=== PATIENT | female | born 1990 | race Two or more races ===

== ENCOUNTER 2020-10-02 05:50 | Emergency (ER) | payer MEDICAID, SELFPAY ==
[2020-10-02 06:40] LABS: MANUAL DIFF FLAG NO
[2020-10-02 06:48] LABS: Basophils Percent Auto 0.3 % (0-2); Eosinophils Absolute Auto 0.2 X10*3/uL (0.0-0.4); Eosinophils Percent Auto 1.7 % (0-4); Hematocrit 32.2 % (37-47); Imm Gran Abs Auto 0.06 X10*3/uL (0.00-0.03); Imm Gran Pct Auto 0.6 % (0.0-0.4); Lymphocytes Percent Auto 19.2 % (20-40); Mean Corpuscular HGB Conc 34.2 g/dl (31.0-35.0); Mean Corpuscular Hemoglobin 31.2 pg (27.0-33.0); Mean Corpuscular Volume 91.2 fL (80-98); Monocytes Absolute Auto 0.9 X10*3/uL (0.1-1.2); Monocytes Percent Auto 8.6 % (2-11); Neutrophils Absolute Auto 7.4 X10*3/uL (2.0-8.3); Neutrophils Percent Auto 69.6 % (45-73); Platelet Count 232 X10*3/uL (160-400); Red Blood Count 3.53 X10*6/uL (4.20-5.50); White Blood Count 10.6 X10*3/uL (4.8-10.8)
[2020-10-02 07:21] LABS: Alanine Aminotransferase 10 U/L (0-31); Albumin Level 3.8 g/dL (3.5-5.0); Alkaline Phosphatase 63 U/L (39-117); Anion Gap 14 (12-20); Aspartate Amino Transferase 13 U/L (5-31); Bilirubin Total 0.2 mg/dL (0.0-1.0); Blood Urea Nitrogen 6 mg/dL (9-16); Carbon Dioxide 21 mmol/L (22-29); Chloride 106 mmol/L (96-108); Estimated Glomerular Filt Rate > 60; Glucose Random 86 mg/dL (60-115); Potassium 3.6 mmol/l (3.3-5.1); Sodium 137 mmol/L (135-145); Total Protein 6.4 g/dL (6.5-8.0)
--- NOTE | 2020-10-02 07:41 | ED.ABDPAIN ---
HPI - Abdominal Pain General Chief Complaint: Abdominal Pain Stated Complaint: Abd pain Time Seen by Provider: 10/02/20 07:40 Source: patient Mode of arrival: ambulatory Limitations: no limitations History of Present Illness HPI narrative: 30 yo female with 2 weeks of lower abdominal pain and flank with dysuria and noted some purulence and blood in urine, denies STI concerns, no fevers or vomiting, does have history of kidney stones MD elicited complaint: abdominal pain and flank pain Pertinent past history: kidney stones Onset (ago): week(s) (2) Pain Consistency: intermittent Location: R flank and suprapubic Severity: moderate Quality: aching Exacerbating factors: other (worse with urination) Relieving factors: nothing Associated symptoms: dysuria and hematuria Related Data Previous Rx's Medication Instructions Recorded PNV,calcium 72-iron,carb-folic 1 tab PO DAILY #90 tab 10/02/20 [ Plus] nitrofurantoin monohyd/m-cryst 100 mg PO BID 7 Days #14 cap 10/02/20 [Macrobid] Allergies Allergy/AdvReac Type Severity Reaction Status Date / Time No Known Allergies Allergy Unverified 06/01/20 17:30 Review of Systems Review of Systems Constitutional : No Weight loss, No Fever, No Chills ENT/Mouth : No sore throat, No Rhinorrhea Eyes: No Swelling, No Redness Cardiovascular : No Chest Pain, No SOB, NoEdema Respiratory : No Cough, No Sputum, No Wheezing Gastrointestinal : Positive Nausea, Positive Vomiting, no Diarrhea, positive abdominal Pain, No Hematochezia, No Melena, no consolidation Genitourinary : pos Dysuria, pos Urinary Frequency, pos Hematuria, No Urgency Musculoskeletal : No joint pain, No Myalgias, No Joint Swelling Skin : No Skin Lesions, No rash Neuro : No Weakness, No Numbness, No Dizziness, No Headache Psych : No Anxiety/Panic, No Depression Heme/Lymph: No Bruising, No Lymphadenopathy Endocrine : No Polyuria, No Polydipsia All other systems reviewed and are negative. Physical Exam Vital Signs: Vital Signs: Last Vital Signs Temp 98.3 F 10/02/20 08:09 Pulse 90 10/02/20 08:09 Resp 16 10/02/20 08:09 BP 108/65 10/02/20 08:09 Pulse Ox 99 10/02/20 08:09 Body Mass Index 29.0 Appearance: Alert. Oriented X3. No acute distress. Eyes: Pupils equal, round and reactive to light. ENT: Pharynx normal. Neck: Normal inspection. Neck supple. CVS: Normal heart rate and rhythm. Pulses normal. Respiratory: No respiratory distress. Breath sounds normal. Abdomen: Soft and mild suprapubic ttp. Skin: Skin warm and dry. Normal skin color. Normal skin turgor. Extremities: No lower extremity edema. No calf ttp Neuro: Oriented X 3. No motor deficit. No sensory deficit. Course Course Course Narrative: + test, added on Rh status c/o hematuria, held CT scan put in OB given pain to r/o ectopic low susp for stone at this time likely cramping and UTI + 18 weeks , abdomen is benign, doubt appendicitis likely uterine stretching will start on prenatals, macrobid and refer to OB MDM - Abdominal Pain MDM Narrative Medical decision making narrative: 30 yo female with dysuria x 2 weeks and flank pain hx of renal colic - denies any STI concerns at this time will need labs, UA, CT scan for renal colic, dispo per results and findings. Lab Data Result diagrams: 10/02/20 06:34 10/02/20 06:34 Labs: Lab Results 10/02/20 10/02/20 10/02/20 Range/Units 06:34 06:34 06:34 WBC 10.6 (4.8-10.8) X10*3/uL RBC 3.53 L (4.20-5.50) X10*6/uL Hgb 11.0 L (12.0-16.0) g/dl Hct 32.2 L (37-47) % MCV 91.2 (80-98) fL MCH 31.2 (27.0-33.0) pg MCHC 34.2 (31.0-35.0) g/dl RDW 12.0 (11.0-16.0) % Plt Count 232 (160-400) X10*3/uL MPV 10.0 (9.4-12.3) fL Immature Gran % (Auto) 0.6 H (0.0-0.4) % Neut % (Auto) 69.6 (45-73) % Lymph % (Auto) 19.2 L (20-40) % [place] % (Auto) 8.6 (2-11) % Eos % (Auto) 1.7 (0-4) % Baso % (Auto) 0.3 (0-2) % Lymph # (Auto) 2.0 (1.2-4.9) X10*3/uL [place] # (Auto) 0.9 (0.1-1.2) X10*3/uL Eos # (Auto) 0.2 (0.0-0.4) X10*3/uL Baso # (Auto) 0.0 (0.0-0.2) X10*3/uL Abs Immat Gran (auto) 0.06 H (0.00-0.03) X10*3/uL Absolute Neuts (auto) 7.4 (2.0-8.3) X10*3/uL Absolute Nucleated RBC 0.000 (0.0-0.012) X10*3/uL Nucleated RBC % (auto) 0.0 (0.0-0.2) /100WBC Hold Blue Top SEE NOTE Sodium 137 (135-145) mmol/L Potassium 3.6 (3.3-5.1) mmol/l Chloride 106 (96-108) mmol/L Carbon Dioxide 21 L (22-29) mmol/L Anion Gap 14 (12-20) BUN 6 L (9-16) mg/dL Creatinine 0.57 (0.5-1.4) mg/dL Estim Creat Clear Calc TNP Estimated GFR > 60 Random Glucose 86 (60-115) mg/dL Calcium 9.0 (8.4-10.2) mg/dL Total Bilirubin 0.2 (0.0-1.0) mg/dL AST 13 (5-31) U/L ALT 10 (0-31) U/L Alkaline Phosphatase 63 (39-117) U/L Total Protein 6.4 L (6.5-8.0) g/dL Albumin 3.8 (3.5-5.0) g/dL Beta HCG, Quant 67160 mIU/mL Urine Color Urine Appearance Urine pH (5.0-8.0) Ur Specific [place] (1.005-1.025) Urine Protein (NEG-TRACE) MG/DL Urine Glucose (UA) (NEG) MG/DL Urine Ketones (NEG) MG/DL Urine Blood (NEG) Urine Nitrite (NEG) Ur Leukocyte Esterase (NEG) Urine RBC (0) /HPF Urine WBC (0-4) /HPF Ur Squamous Epith Cells /LPF Urine Bacteria /LPF Urine Test (NEGATIVE) Blood Type 10/02/20 10/02/20 10/02/20 Range/Units 08:20 08:20 Unknown WBC (4.8-10.8) X10*3/uL RBC (4.20-5.50) X10*6/uL Hgb (12.0-16.0) g/dl Hct (37-47) % MCV (80-98) fL MCH (27.0-33.0) pg MCHC (31.0-35.0) g/dl RDW (11.0-16.0) % Plt Count (160-400) X10*3/uL MPV (9.4-12.3) fL Immature Gran % (Auto) (0.0-0.4) % Neut % (Auto) (45-73) % Lymph % (Auto) (20-40) % [place] % (Auto) (2-11) % Eos % (Auto) (0-4) % Baso % (Auto) (0-2) % Lymph # (Auto) (1.2-4.9) X10*3/uL [place] # (Auto) (0.1-1.2) X10*3/uL Eos # (Auto) (0.0-0.4) X10*3/uL Baso # (Auto) (0.0-0.2) X10*3/uL Abs Immat Gran (auto) (0.00-0.03) X10*3/uL Absolute Neuts (auto) (2.0-8.3) X10*3/uL Absolute Nucleated RBC (0.0-0.012) X10*3/uL Nucleated RBC % (auto) (0.0-0.2) /100WBC Hold Blue Top Sodium (135-145) mmol/L Potassium (3.3-5.1) mmol/l Chloride (96-108) mmol/L Carbon Dioxide (22-29) mmol/L Anion Gap (12-20) BUN (9-16) mg/dL Creatinine (0.5-1.4) mg/dL Estim Creat Clear Calc Estimated GFR Random Glucose (60-115) mg/dL Calcium (8.4-10.2) mg/dL Total Bilirubin (0.0-1.0) mg/dL AST (5-31) U/L ALT (0-31) U/L Alkaline Phosphatase (39-117) U/L Total Protein (6.5-8.0) g/dL Albumin (3.5-5.0) g/dL Beta HCG, Quant mIU/mL Urine Color YELLOW Urine Appearance CLOUDY Urine pH 5.5 (5.0-8.0) Ur Specific [place] 1.025 (1.005-1.025) Urine Protein NEG (NEG-TRACE) MG/DL Urine Glucose (UA) NEG (NEG) MG/DL Urine Ketones NEG (NEG) MG/DL Urine Blood 3+ H (NEG) Urine Nitrite NEG (NEG) Ur Leukocyte Esterase 1+ H (NEG) Urine RBC 10-14 H (0) /HPF Urine WBC 15-29 H (0-4) /HPF Ur Squamous Epith Cells 2+ /LPF Urine Bacteria 2+ /LPF Urine Test POSITIVE H (NEGATIVE) Blood Type O Positive Discharge Plan Discharge Clinical Impression: UTI (urinary tract infection) Qualifiers: Urinary tract infection type: acute cystitis Hematuria presence: with hematuria Qualified Code(s): N30.01 - Acute cystitis with hematuria Qualifiers: Weeks of gestation: 18 weeks Qualified Code(s): Z3A.18 - 18 weeks gestation of Patient Disposition: Home, Self-Care Instructions: Abdominal Pain in (ED), Urinary Tract Infection in (ED) Additional Instructions: return to ED for any worsening symptoms or concerns you need to follow up with an OB as soon as possible Prescriptions: New nitrofurantoin monohyd/m-cryst [Macrobid] 100 mg capsule 100 mg PO BID 7 Days Qty: 14 RF: 0 Plus 29 mg iron- 1 mg tablet 1 tab PO DAILY Qty: 90 RF: 1 Referrals: Nicholas Gutierrez MD [Physician] - 2 days (as soon as possible) Stand Alone Forms: Work/School Release [facility] Past Medical History Attestation statement: The following information was validated with the patient. Medical History IBS (irritable bowel syndrome) Social History Social History (Updated 10/02/20 @ 07:55 by Mee Kim DO) Alcohol intake: never Smoking Status: Current some day smoker Use of substances other than those prescribed or required for medical reasons: No Advance Directives: No Advance Directives Information Provided: No
[2020-10-02 08:09] VITALS: BP 108/65; PULSE 90; RESP 16; TEMP 36.8; O2SAT 99; BMI 29.0
[2020-10-02 08:35] LABS: Glucose Urine UA NEG (NEG); Leukocyte Esterase Urine 1+ (NEG); Nitrite Urine NEG (NEG); PH 5.5 (5.0-8.0); Specific Gravity - Urine 1.025 (1.005-1.025); Urine Blood 3+ (NEG); Urine Ketones NEG (NEG); Urine Protein NEG (NEG-TRACE)
[2020-10-02 08:38] LABS: Appearance Urine CLOUDY; Color Urine YELLOW
[2020-10-02 08:39] LABS: UPreg QC Valid YES; Urine Pregnancy POSITIVE (NEGATIVE)
--- NOTE | 2020-10-02 08:41 | US_ITS ---
EXAMINATION: ULTRASOUND OB LIMITED CLINICAL INFORMATION: Abdominal pain. COMPARISON: None TECHNIQUE: Transabdominal ultrasound pelvis is performed. FINDINGS: The fetus in breech presentation and posterior placenta grade 1. On biometry,, BPD measures 3.88 cm corresponding 17 weeks 6 days, OFD measures 4.93 cm corresponding 17 weeks 6 days, Head circumference measures 14.61 cm corresponding 17 weeks 6 days, Abdominal circumference measures 12.57 cm corresponding 18 weeks 2 days, Femur length measures 2.48 cm corresponding 17 weeks 4 days. The composite ultrasound gestational age is 18 weeks 0 days and LUCY of 03/05/2021. Estimated weight is 0 pounds and 7 ounces or 2 12 g. heart beat measures 1 39 bpm. There is adequate amniotic fluid visualized. US/US OB limited IMPRESSION: Single live intrauterine fetus with an ultrasound gestational age of 18 weeks 0 days with an LUCY of 03/05/2021.
[2020-10-02 08:45] LABS: Bacteria Urine 2+ /LPF; Squamous Epithelial Cell Urine 2+ /LPF
[2020-10-02 09:34] LABS: HCG Quantitative 29205 mIU/mL
== END 2020-10-02 11:07 | disposition home or self-care (01) ==
PROVIDERS: Emergency Provider Emergency Medicine; PCP Internal Medicine
DX: O23.12 Infections of bladder in pregnancy, second trimester (principal); N30.01 Acute cystitis with hematuria; Z3A.19 19 weeks gestation of pregnancy
CPT/HCPCS: 36415; 76815; 80053; 81001; 81025; 84702; 85025; 86900; 86901; 87086; 99284

== ENCOUNTER → 2020-10-06 12:59 | Outpatient (BNVA) | payer MEDICAID, SELFPAY | PROVIDERS: PCP Internal Medicine; Visit Provider Advanced Practice Midwife | DX: Z13.89 Encounter for screening for other disorder (principal) | CPT/HCPCS: 99212 ==

== ENCOUNTER 2020-10-13 14:57 | Outpatient (REF) | payer MEDICAID, SELFPAY ==
--- NOTE | 2020-10-13 15:02 | US_ITS ---
EXAMINATION: US OBSTETRICAL CLINICAL INFORMATION: A 30-year-old at 19.4 weeks of gestation Suspected anomaly Insufficient care COMPARISON: 10/02/2020 TECHNIQUE: Real-time transabdominal ultrasound was performed using C1-5 megahertz transducer. FINDINGS: A single, active, fetus is seen in vertex presentation. The placenta is posterior without previa, and the amniotic fluid volume is wnl. MEASUREMENTS: 1. Biparietal Diameter: 4.2 cm; 18.6 wks 2. Occipital Frontal Diameter: 5.8 cm 3. Head Circumference: 16.6 cm; 19.3 wks 4. Abdominal Circumference: 14.3 cm; 19.5 wks 5. Femur Length: 3.0 cm; 19.3 wks 6. Humerus Length: 2.7 cm; 18.5 wks 7. Tibia Length: 2.7 cm; 19.4 wks 8. Ulna Length: 2.7 cm; 20.1 wks 9. Lateral ventricle: 0.5 cm 10. Cerebellum: 1.86 cm; 19.2 wks 11. Cisterna Magna: 0.52 cm 12. Nuchal Fold: 4.42 mm 13. Heart Rate: 136 beats per minute Rt ovary: normal Lt ovary: normal Cervical length 3.8 cm on T/A. GESTATIONAL AGE: 1. Established GA: 19.4 wks 2. GA from [facility]: 19.3 wks ESTIMATED DATE OF DELIVERY: 1. Established LUCY: 03/05/2021 2. LUCY from [facility]: 03/06/2021 ANATOMY: The visualized anatomy includes but not limited to: 1. Cranium: Normal 2. Intracranial anatomy: cavum septum pellucidi, lateral ventricles, choroid plexus, cerebellum, posterior fossa, third and fourth ventricles. 3. face: orbits, lip/palate, profile, nasal bone 4. Heart: four-chamber view of the heart, ventricular septum, foramen ovale, pulmonary vein, left and right outflow tracts, three-vessel view, 3 vessel trachea view, aortic and ductal arches, situs.. 5. Diaphragm: Normal 6. Abdominal wall: Normal 7. Cord Insertion: Normal 8. Spine: Cervical, thoracic, lumbar, sacral. 9. Stomach: Normal size and shape 10. Right Kidney: Normal 11. Left Kidney: Normal 12. 3 vessel cord: Normal 13. Upper extremity: Open hands, fifth digit. 14. Lower extremity: Tibia, fibula, bilateral feet. 15. Bladder: Normal 16. Genitalia: Male, patient aware US/US OB /maternal detail IMPRESSION: 1. Single, living, intrauterine with appropriate biometry. 2. Normal survey DISCUSSION: I reviewed today's ultrasound findings. She has not yet had the serum aneuploidy screening. N IPT was offered and accepted. We discussed the limitations of ultrasound in diagnosing aneuploidy and other congenital abnormalities. I reviewed the differences between screening test and diagnostic test. Amniocentesis was discussed and declined. She was informed that the baseline incidence of congenital abnormalities is approximately 3-5%. Not all these conditions are diagnosable in utero. RECOMMENDATIONS: 1. Additional ultrasound has not been scheduled today. Thank you for allowing me to participate in her care. Visiting time 20 minutes. Majority of this visit was spent reviewing and discussing her care.
== END 2020-10-13 14:58 | disposition home or self-care (01) ==
LOC: HO.US 14:57
PROVIDERS: PCP Internal Medicine; Visit Provider Advanced Practice Midwife
DX: O26.90 Pregnancy related conditions, unspecified, unspecified trimester (principal)
CPT/HCPCS: 76811

== ENCOUNTER 2020-10-23 15:53 | Outpatient (REF) | payer MEDICAID, SELFPAY | END 2020-10-23 15:54 | disposition home or self-care (01) | LOC: HO.LAB 15:53 | PROVIDERS: Visit Provider Internal Medicine | DX: Z20.822 Contact with and (suspected) exposure to COVID-19 (principal) | CPT/HCPCS: 36415; C9803; U0003; U0005 ==

== ENCOUNTER 2020-10-23 16:17 | Outpatient (REF) | payer MEDICAID, SELFPAY | END 2020-10-23 16:18 | disposition home or self-care (01) | LOC: HO.LAB 16:17 | PROVIDERS: PCP Internal Medicine; Visit Provider Obstetrics & Gynecology Maternal & Fetal Medicine | DX: Z13.89 Encounter for screening for other disorder (principal) ==

== ENCOUNTER → 2020-11-03 10:07 | Outpatient (BNVA) | payer MEDICAID, SELFPAY | PROVIDERS: PCP Internal Medicine; Visit Provider Advanced Practice Midwife | CPT/HCPCS: 99212 ==

== ENCOUNTER 2020-11-14 17:03 | Outpatient (REF) | payer MEDICAID, SELFPAY ==
[2020-11-14 17:22] LABS: MANUAL DIFF FLAG NO
[2020-11-14 17:31] LABS: Basophils Percent Auto 0.3 % (0-2); Eosinophils Absolute Auto 0.1 X10*3/uL (0.0-0.4); Hematocrit 31.9 % (37-47); Hemoglobin 10.7 g/dl (12.0-16.0); Imm Gran Abs Auto 0.29 X10*3/uL (0.00-0.03); Imm Gran Pct Auto 2.8 % (0.0-0.4); Lymphocytes Absolute Auto 1.6 X10*3/uL (1.2-4.9); Lymphocytes Percent Auto 15.7 % (20-40); Mean Corpuscular HGB Conc 33.5 g/dl (31.0-35.0); Mean Corpuscular Hemoglobin 31.5 pg (27.0-33.0); Mean Corpuscular Volume 93.8 fL (80-98); Mean Platelet Volume 9.9 fL (9.4-12.3); Monocytes Absolute Auto 0.9 X10*3/uL (0.1-1.2); Neutrophils Absolute Auto 7.3 X10*3/uL (2.0-8.3); Neutrophils Percent Auto 71.2 % (45-73); Platelet Count 262 X10*3/uL (160-400); Red Cell Distribution Width 12.4 % (11.0-16.0); White Blood Count 10.3 X10*3/uL (4.8-10.8)
[2020-11-14 18:28] LABS: Amphetamine Screen Urine Not Detected (Not Detect); Barbiturates, Urine Not Detected (Not Detect); Benzodiazepines Screen Urine Not Detected (Not Detect); Cannabinoid Screen Urine Not Detected (Not Detect); Cocaine Screen Urine Not Detected (Not Detect); Opiate Screen Urine Not Detected (Not Detect); Phencyclidine Screen Urine POSITIVE (Not Detect)
[2020-11-15 08:36] LABS: HIV AB/AG Nonreactive (Nonreactive); HIV Num 1 0.06 S/CO (0.00-0.99)
[2020-11-15 08:39] LABS: Syphilis Screen Nonreactive (Nonreactive)
[2020-11-15 08:52] LABS: HBsAGNum1 0.13 S/CO (0.00-0.99); Hepatitis B Surface Antigen Negative (Negative); ~HepC Num1 0.06 S/CO (0.00-0.79); ~Hepatitis C Antibody Nonreactive (Nonreactive)
== END 2020-11-14 17:04 | disposition home or self-care (01) ==
LOC: HO.LAB 17:03
PROVIDERS: Visit Provider Advanced Practice Midwife
DX: Z34.90 Encounter for supervision of normal pregnancy, unspecified, unspecified trimester (principal)
CPT/HCPCS: 80307; 85025; 86762; 86780; 86787; 86803; 86850; 86900; 86901; 87086; 87340; 87389

== ENCOUNTER 2020-11-16 13:44 | Outpatient (REF) | payer MEDICAID, SELFPAY ==
[2020-11-16 16:51] LABS: Glucose Urine UA NEG (NEG); Leukocyte Esterase Urine NEG (NEG); Nitrite Urine NEG (NEG); PH 5.5 (5.0-8.0); Specific Gravity - Urine 1.025 (1.005-1.025); Urine Blood NEG (NEG); Urine Ketones NEG (NEG); Urine Protein NEG (NEG-TRACE)
[2020-11-16 16:52] LABS: Appearance Urine HAZY; Color Urine YELLOW
[2020-11-16 17:14] LABS: Bacteria Urine TRACE /LPF; RBC Urine 0-2 /HPF (0); Squamous Epithelial Cell Urine TRACE /LPF; WBC Urine 0 /HPF (0-4)
[2020-11-17 08:45] LABS: BV Int Neg Control Negative (Negative); BV Int Pos Control Positive (Positive)
[2020-11-17 09:57] LABS: C. trachomatis RNA TMA NOT DETECTED (NOT DETECTED); N. gonorrhoeae RNA TMA NOT DETECTED (NOT DETECTED)
[2020-11-21 07:32] LABS: HPV mRNA E6/E7 rflx Not Detected (Not Detected)
== END 2020-11-16 13:45 | disposition home or self-care (01) ==
LOC: HO.LAB 13:44
PROVIDERS: Visit Provider Advanced Practice Midwife
DX: O09.32 Supervision of pregnancy with insufficient antenatal care, second trimester (principal); O99.012 Anemia complicating pregnancy, second trimester; D64.9 Anemia, unspecified; O99.612 Diseases of the digestive system complicating pregnancy, second trimester; K59.09 Other constipation; Z3A.24 24 weeks gestation of pregnancy; Z79.899 Other long term (current) drug therapy; Z86.16 Personal history of COVID-19; Z87.442 Personal history of urinary calculi
CPT/HCPCS: 36415; 81001; 81003; 87086; 87480; 87491; 87510; 87591; 87624; 87660; 88142; 99212

== ENCOUNTER 2020-12-14 14:41 | Outpatient (REF) | payer MEDICAID, SELFPAY ==
[2020-12-14 16:23] LABS: Hematocrit 33.4 % (37-47); Hemoglobin 11.1 g/dl (12.0-16.0); Mean Corpuscular HGB Conc 33.2 g/dl (31.0-35.0); Mean Corpuscular Hemoglobin 31.7 pg (27.0-33.0); Mean Corpuscular Volume 95.4 fL (80-98); Platelet Count 262 X10*3/uL (160-400); Red Cell Distribution Width 12.5 % (11.0-16.0); White Blood Count 11.5 X10*3/uL (4.8-10.8)
[2020-12-14 18:07] LABS: Amphetamine Screen Urine Not Detected (Not Detect); Benzodiazepines Screen Urine Not Detected (Not Detect); Cannabinoid Screen Urine Not Detected (Not Detect); Opiate Screen Urine Not Detected (Not Detect); Phencyclidine Screen Urine Not Detected (Not Detect)
[2020-12-14 18:12] LABS: Barbiturates, Urine Not Detected (Not Detect); Cocaine Screen Urine Not Detected (Not Detect)
[2020-12-15 09:08] LABS: Syphilis Screen Nonreactive (Nonreactive)
== END 2020-12-14 14:42 | disposition home or self-care (01) ==
LOC: HO.LAB 14:41
PROVIDERS: Advanced Practice Midwife; PCP Internal Medicine; Visit Provider Advanced Practice Midwife
DX: O09.33 Supervision of pregnancy with insufficient antenatal care, third trimester (principal); O99.013 Anemia complicating pregnancy, third trimester; D64.9 Anemia, unspecified; O99.613 Diseases of the digestive system complicating pregnancy, third trimester; K59.09 Other constipation; Z3A.28 28 weeks gestation of pregnancy
CPT/HCPCS: 36415; 80307; 81003; 85027; 86780; 99212

== ENCOUNTER 2020-12-15 15:40 | Outpatient (REF) | payer MEDICAID, SELFPAY ==
[2020-12-15 17:53] LABS: Hematocrit 32.8 % (37-47); Mean Corpuscular HGB Conc 33.5 g/dl (31.0-35.0); Mean Corpuscular Hemoglobin 31.8 pg (27.0-33.0); Mean Corpuscular Volume 94.8 fL (80-98); Platelet Count 257 X10*3/uL (160-400); Red Blood Count 3.46 X10*6/uL (4.20-5.50); Red Cell Distribution Width 12.4 % (11.0-16.0); White Blood Count 10.9 X10*3/uL (4.8-10.8)
[2020-12-15 18:15] LABS: Glucose 1 Hour 117 mg/dL
[2020-12-15 18:45] LABS: Amphetamine Screen Urine Not Detected (Not Detect); Barbiturates, Urine Not Detected (Not Detect); Benzodiazepines Screen Urine Not Detected (Not Detect); Cannabinoid Screen Urine Not Detected (Not Detect); Cocaine Screen Urine Not Detected (Not Detect); Opiate Screen Urine Not Detected (Not Detect); Phencyclidine Screen Urine Not Detected (Not Detect)
[2020-12-16 11:29] LABS: CT PCR NOT DETECTED (Not Detect.); NG PCR NOT DETECTED (Not Detect.)
== END 2020-12-15 15:41 | disposition home or self-care (01) ==
LOC: HO.LAB 15:40
PROVIDERS: PCP Internal Medicine; Visit Provider Advanced Practice Midwife
DX: O23.40 Unspecified infection of urinary tract in pregnancy, unspecified trimester (principal)
CPT/HCPCS: 80307; 82951; 85027; 87491; 87591

== ENCOUNTER → 2020-12-28 14:30 | Outpatient (BNVA) | payer MEDICAID, SELFPAY | PROVIDERS: PCP Internal Medicine; Visit Provider Advanced Practice Midwife | DX: O36.63X0 Maternal care for excessive fetal growth, third trimester, not applicable or unspecified (principal); Z13.31 Encounter for screening for depression; Z3A.30 30 weeks gestation of pregnancy | CPT/HCPCS: 81003; 99212 ==

== ENCOUNTER 2021-01-05 11:22 | Outpatient (REF) | payer MEDICAID, SELFPAY ==
--- NOTE | ~2021-01-05 | US_ITS ---
EXAMINATION: OBSTETRICAL ULTRASOUND, Follow up HISTORY: 30-year-old at the 32.0 weeks of gestation Size greater than dates High BMI COMPARISON: 10/13/2020 TECHNIQUE: Real time transabdominal imaging with color and M-mode Doppler. PRESENTATION: Vertex PLACENTA LOCATION: Posterior fundal AMNIOTIC FLUID: CORKY 12.2 cm MEASUREMENTS: 1. Biparietal Diameter: 8.0 cm; 32.1 wks 2. Head Circumference: 29.5 cm; 32.4 wks 3. Abdominal Circumference: 27.0 cm; 31.1 wks 4. Femur Length: 6.2 cm; 32.0 wks 5. Heart Rate: 132 beats per minute WEIGHT: EFW: 1792 grams (3 lbs 15 oz) -- 38 %. BIOPHYSICAL PROFILE: Motion: 2 Tone: 2 Breathin Amniotic Fluid: 2 Total score: 8/8 GESTATIONAL AGE: 1. Established GA: 31.4 wks 2. GA from [facility]: 32.0 wks ESTIMATED DATE OF DELIVERY: 1. Established LUCY: 03/05/2021 2. LUCY from [facility]: 03/02/2021 US/US OB follow up IMPRESSION: 1. A single active fetus is in vertex presentation 2. Size equals dates 3. Reassuring biophysical profile Thank you very much for this referral. This note was generated with a voice recognition program. Please excuse any errors which may have been overlooked during my review of this note. Sometimes these errors may affect the content or meaning of a given sentence.
== END 2021-01-05 11:23 | disposition home or self-care (01) ==
LOC: HO.US 11:22
PROVIDERS: Visit Provider Advanced Practice Midwife
DX: O36.63X0 Maternal care for excessive fetal growth, third trimester, not applicable or unspecified (principal)
CPT/HCPCS: 76816

== ENCOUNTER → 2021-01-11 14:43 | Outpatient (BNVA) | payer MEDICAID, SELFPAY | PROVIDERS: Visit Provider Advanced Practice Midwife | DX: Z34.93 Encounter for supervision of normal pregnancy, unspecified, third trimester (principal); Z3A.32 32 weeks gestation of pregnancy | CPT/HCPCS: 81003; 99212 ==

== ENCOUNTER 2021-01-12 16:26 | Outpatient (REF) | payer MEDICAID, SELFPAY ==
[2021-01-12 17:30] LABS: Hematocrit 33.4 % (37-47); Mean Corpuscular HGB Conc 32.9 g/dl (31.0-35.0); Mean Corpuscular Hemoglobin 31.4 pg (27.0-33.0); Mean Corpuscular Volume 95.4 fL (80-98); Mean Platelet Volume 10.2 fL (9.4-12.3); Platelet Count 257 X10*3/uL (160-400); Red Cell Distribution Width 12.1 % (11.0-16.0)
[2021-01-12 17:38] LABS: Glucose Urine UA NEG (NEG); Leukocyte Esterase Urine NEG (NEG); Nitrite Urine NEG (NEG); PH 6.5 (5.0-8.0); Urine Blood NEG (NEG); Urine Ketones NEG (NEG); Urine Protein NEG (NEG-TRACE)
[2021-01-12 17:39] LABS: Appearance Urine HAZY; Color Urine YELLOW
[2021-01-12 18:01] LABS: Alanine Aminotransferase 8 U/L (0-31); Aspartate Amino Transferase 15 U/L (5-31); Blood Urea Nitrogen 6 mg/dL (9-16); Estimated Glomerular Filt Rate > 60
[2021-01-12 18:03] LABS: Amphetamine Screen Urine Not Detected (Not Detect); Barbiturates, Urine Not Detected (Not Detect); Benzodiazepines Screen Urine Not Detected (Not Detect); Cannabinoid Screen Urine Not Detected (Not Detect); Cocaine Screen Urine Not Detected (Not Detect); Creatinine Urine 86.96 mg/dL; Opiate Screen Urine Not Detected (Not Detect); Phencyclidine Screen Urine Not Detected (Not Detect); Total Protein Urine Random 9 mg/dL (<12)
== END 2021-01-12 16:27 | disposition home or self-care (01) ==
LOC: HO.LAB 16:26
PROVIDERS: PCP Internal Medicine; Visit Provider Advanced Practice Midwife
DX: O23.40 Unspecified infection of urinary tract in pregnancy, unspecified trimester (principal)
CPT/HCPCS: 80307; 81003; 82565; 84156; 84450; 84460; 84520; 84550; 85027

== ENCOUNTER → 2021-01-25 14:52 | Outpatient (BNVA) | payer MEDICAID, SELFPAY | PROVIDERS: PCP Internal Medicine; Visit Provider Advanced Practice Midwife | DX: Z34.93 Encounter for supervision of normal pregnancy, unspecified, third trimester (principal); Z3A.34 34 weeks gestation of pregnancy; K64.9 Unspecified hemorrhoids | CPT/HCPCS: 81003; 99212 ==

== ENCOUNTER 2021-02-20 14:37 | Outpatient (REF) | payer MEDICAID, SELFPAY ==
[2021-02-21 10:37] LABS: CT PCR NOT DETECTED (Not Detect.); NG PCR NOT DETECTED (Not Detect.)
== END 2021-02-20 14:38 | disposition home or self-care (01) ==
LOC: HO.LAB 14:37
PROVIDERS: Advanced Practice Midwife; Visit Provider Obstetrics & Gynecology
DX: O99.013 Anemia complicating pregnancy, third trimester (principal); O26.893 Other specified pregnancy related conditions, third trimester; O99.213 Obesity complicating pregnancy, third trimester; O99.343 Other mental disorders complicating pregnancy, third trimester; F41.9 Anxiety disorder, unspecified; F32.9 Major depressive disorder, single episode, unspecified; R51.9 Headache, unspecified; K59.09 Other constipation; Z3A.38 38 weeks gestation of pregnancy; Z86.16 Personal history of COVID-19
CPT/HCPCS: 87081; 87147; 87491; 87591; 99212

== ENCOUNTER 2021-02-21 14:29 | Outpatient (REF) | payer MEDICAID, SELFPAY ==
--- NOTE | ~2021-02-21 | US_ITS ---
EXAMINATION: US OBSTETRICAL FOLLOW UP WITH BIOPHYSICAL PROFILE CLINICAL INFORMATION: Obesity COMPARISON: Previous exams most recent December 2020 TECHNIQUE: Real time transabdominal imaging with color and M-mode Doppler. POSITION: Cephalic PLACENTA: Anterior. Grade 3. AMNIOTIC FLUID INDEX: 11.2 cm MEASUREMENTS: The initial dating ultrasound dated provided an estimated date of delivery of 03/05/2021. This would project today to a of 38 weeks 2 days. biometric measurements are as follows: Biparietal Diameter: 9.2 cm (37 weeks 1 day) Occipital Frontal Diameter: 9 cm (36 weeks 2 days) Head Circumference: 33 cm (38 weeks 0 days) Abdominal Circumference: 31.5 cm (35 weeks 3 days) Femur Length: 7.5 cm (38 weeks 2 days) The standard deviation for the above measurements is +/- 3 weeks. ESTIMATED WEIGHT: The EFW is 2986 grams +/- grams (6 lbs 9 oz +/- oz). This is at the 23rd percentile. BIOPHYSICAL PROFILE: Biophysical profile is performed over 30 minutes with assessment of breathing, gross body movement, tone, and qualitative amniotic fluid volume. Each matrix is scored 0 or 2, depending if the metric is present. Maximum total score possible is 8. Motion: 2 Tone: 2 Breathin Amniotic Fluid: 2 Total score: 8 HR: 134 bpm Umbilical artery Doppler exam demonstrates normal waveform with systolic to diastolic ratio of 2.3. US/US OB follow up IMPRESSION: 1. Single intrauterine gestation in cephalic position with anterior placenta. 2. EFW: 6 lbs. 9 oz. which is 23rd percentile for patient's gestational age 3. CORKY: 11.2 cm. 4. BPP score: 8 (scale 0-8).
== END 2021-02-21 14:30 | disposition home or self-care (01) ==
LOC: HO.US 14:29
PROVIDERS: PCP Internal Medicine; Visit Provider Advanced Practice Midwife
DX: O99.213 Obesity complicating pregnancy, third trimester (principal); E66.9 Obesity, unspecified; Z3A.00 Weeks of gestation of pregnancy not specified
CPT/HCPCS: 76816

== ENCOUNTER → 2021-02-26 11:22 | Outpatient (BNVA) | payer MEDICAID, SELFPAY | PROVIDERS: PCP Internal Medicine; Visit Provider Obstetrics & Gynecology | DX: Z34.93 Encounter for supervision of normal pregnancy, unspecified, third trimester (principal); Z3A.39 39 weeks gestation of pregnancy | CPT/HCPCS: 99212 ==

== ENCOUNTER 2021-04-05 11:38 | Outpatient (REF) | payer MEDICAID, SELFPAY ==
[2021-04-05 12:57] LABS: MANUAL DIFF FLAG NO
[2021-04-05 13:05] LABS: Basophils Absolute Auto 0.1 X10*3/uL (0.0-0.2); Basophils Percent Auto 0.7 % (0-2); Eosinophils Absolute Auto 0.3 X10*3/uL (0.0-0.4); Eosinophils Percent Auto 3.2 % (0-4); Hematocrit 38.1 % (37-47); Hemoglobin 12.3 g/dl (12.0-16.0); Imm Gran Abs Auto 0.11 X10*3/uL (0.00-0.03); Imm Gran Pct Auto 1.3 % (0.0-0.4); Lymphocytes Absolute Auto 2.5 X10*3/uL (1.2-4.9); Lymphocytes Percent Auto 28.6 % (20-40); Mean Corpuscular HGB Conc 32.3 g/dl (31.0-35.0); Mean Corpuscular Hemoglobin 30.1 pg (27.0-33.0); Mean Corpuscular Volume 93.4 fL (80-98); Mean Platelet Volume 9.4 fL (9.4-12.3); Monocytes Absolute Auto 0.6 X10*3/uL (0.1-1.2); Monocytes Percent Auto 7.1 % (2-11); Neutrophils Absolute Auto 5.2 X10*3/uL (2.0-8.3); Neutrophils Percent Auto 59.1 % (45-73); Platelet Count 395 X10*3/uL (160-400); Red Blood Count 4.08 X10*6/uL (4.20-5.50); Red Cell Distribution Width 11.7 % (11.0-16.0); White Blood Count 8.7 X10*3/uL (4.8-10.8)
[2021-04-05 13:41] LABS: Alanine Aminotransferase 15 U/L (0-31); Albumin Level 4.4 g/dL (3.5-5.0); Alkaline Phosphatase 142 U/L (39-117); Anion Gap 16 (12-20); Aspartate Amino Transferase 20 U/L (5-31); Bilirubin Total 0.3 mg/dL (0.0-1.0); Blood Urea Nitrogen 11 mg/dL (9-16); Calcium 9.9 mg/dL (8.4-10.2); Carbon Dioxide 26 mmol/L (22-29); Chloride 105 mmol/L (96-108); Estimated Glomerular Filt Rate > 60; Glucose Random 91 mg/dL (60-115); Potassium 4.4 mmol/L (3.3-5.1); Sodium 143 mmol/L (135-145); Total Protein 7.8 g/dL (6.5-8.0)
[2021-04-05 13:46] LABS: Thyroid Stimulating Hormone 1.77 uIU/mL (0.32-4.0)
== END 2021-04-05 11:39 | disposition home or self-care (01) ==
LOC: HO.LAB 11:38
PROVIDERS: PCP Internal Medicine; Visit Provider Internal Medicine
DX: R60.0 Localized edema (principal); R21 Rash and other nonspecific skin eruption; I10 Essential (primary) hypertension
CPT/HCPCS: 36415; 80053; 84443; 85025

== ENCOUNTER → 2021-04-26 10:17 | Outpatient (BNVA) | payer MEDICAID, SELFPAY | PROVIDERS: Visit Provider Advanced Practice Midwife | DX: Z39.2 Encounter for routine postpartum follow-up (principal) | CPT/HCPCS: 99212 ==

== ENCOUNTER 2021-11-22 15:48 | Emergency (ER) | payer OTHER, MEDICAID, SELFPAY ==
[2021-11-22 16:05] VITALS: BP 135/74; PULSE 100; RESP 16; TEMP 36.9; O2SAT 100; BMI 37.9
--- NOTE | 2021-11-22 16:35 | ED_ITS ---
HPI - Wound/Laceration General Chief Complaint: Wound/Laceration Stated Complaint: left hand laceration Time Seen by Provider: 11/22/21 16:34 Source: patient Mode of arrival: ambulatory Limitations: no limitations History of Present Illness HPI narrative: This is a 31-year-old female no significant medical history presenting to the emergency department with complaints of laceration to the right palmar aspect of hand. Patient tells me she cut herself against a ceramic glass that was broken. She tells me that the glasses not shattered, she scratched herself with the side of the class. Sensory and motor intact. Denies numbness or tingling. No foreign body sensation. She does not think that there is a foreign body in the area. Not up to date on a tetanus shot. Onset (ago): hour(s) (1) Location: other (right hand ) Place: home Patient tetanus UTD: No Context: accidental Associated symptoms: none Related Data Previous Rx's Medication Instructions Recorded ferrous sulfate 324 mg (65 mg 324 mg PO TID #90 tab 11/16/20 iron) tablet,delayed release polyethylene glycol 3350 17 17 g PO DAILY #510 g 11/16/20 gram/dose oral powder (Miralax) vitamin-ferrous fumarate 1 tab PO DAILY 90 Days #90 tab 01/09/21 28 mg iron-folic acid 800 mcg tablet ( Vitamins with Minerals) aspirin 81 mg tablet,delayed 162 mg PO DAILY #60 tab 01/11/21 release (Adult Aspirin Regimen) sucralfate 1 gram tablet 1 g PO BID #60 tab 01/11/21 phenylephrine 0.25 %-mineral oil 1 appl [place] TID-QID PRN #57 g 01/25/21 14 %-petrolatm 74.9 % rectal ointment (Preparation H) levonorgestrel-ethinyl estradiol 1 tab PO DAILY #84 tab 04/26/21 0.1 mg-20 mcg tablet Allergies Allergy/AdvReac Type Severity Reaction Status Date / Time No Known Allergies Allergy Verified 11/22/21 16:05 Review of Systems Review of Systems: Constitutional : No Fever, No Chills, Cardiovascular : No Chest Pain, No SOB Respiratory : No Dyspnea Gastrointestinal : No abdominal pain Musculoskeletal : No Joint Swelling Skin : No rash, positive skin laceration Neuro : No Weakness, No Numbness Psych : No SI/HI Yes all other systems are reviewed and are negative [facility] Past Medical History Attestation statement: The following information was validated with the patient. Source: old records reviewed and nursing notes reviewed Medical History Cervical cancer screening IBS (irritable bowel syndrome) Scoliosis Family History Family History Paternal Grandmother Hx of diabetes mellitus Social History Social History Household Members: Significant Other Alcohol intake: never Advance Directives: No Advance Directives Information Provided: No Physical Exam Vital Signs: Vital Signs: Last Vital Signs Temp 98.4 F 11/22/21 16:05 Pulse 100 11/22/21 16:05 Resp 16 11/22/21 16:05 BP 135/74 11/22/21 16:05 Pulse Ox 100 11/22/21 16:05 BMI result Body Mass Index 37.9 VSS Appearance: Alert.? Oriented X3.? No acute distress.? Head: Normocephalic, atraumatic, no step-offs or deformities Eyes: Pupils equal, round and reactive to light.? ENT: Pharynx normal.? Neck: Normal inspection.? Neck supple.? CVS: Normal heart rate and rhythm.? Pulses normal.? Respiratory: No respiratory distress.? Breath sounds normal.? Abdomen: Soft and nontender.? Skin: Skin warm and dry.? Normal skin color.? Normal skin turgor.?+ a 6 cm laceration is noted to the palmar aspect of right hand near 1st digit. This center portion of the laceration appears deeper than the edges. Sensory and motor intact to bilateral upper and lower extremities. No evidence of foreign bodies within wound. No distracting injuries. Capillary refill less than 2 seconds. Neurovascularly intact Extremities: No lower extremity edema.? 5/5 strength to bilateral upper and lower extremities Neuro: Oriented X 3.? No motor deficit.? No sensory deficit. CN 2-12 intact Course Reevaluation(s) Reevaluation #1: Area was successfully sutured. No complications. Patient tolerated procedure well. Advised to return with new or worsening symptoms. Outline his on her discharge. Advised her to return in 7-10 days for suture removal MDM - Wound/Laceration MDM Narrative Medical decision making narrative: 1635 31 yo f presents w a small laceration to right palmar aspect of hand near first digit PE w/ laceration to right miller aspect near first digit Plan suture the deeper portion of the laceration. And give Louis patient tetanus shot. Medical Records Attestation: I reviewed the patient's medical records. Lab Data Attestation: I reviewed the patient's lab results. Procedures Laceration Laceration 1: Site: hand Side (If applicable): right Size (cm): 6 Description: linear Depth: simple, single layer Local Anesthetic: lidocaine 2% Amount of anesthesia used (mL): 5 Pre-repair: wound explored, irrigated extensively and deep structures intact Skin layer closed with: vicryl Size (cm): 4-0 Number of sutures: 2 Technique: simple, interrupted Critical Care Time Critical Care Time Critical Care Time: No Discharge Plan Discharge Clinical Impression: Laceration Patient Disposition: Home, Self-Care Instructions: Laceration (ED) Additional Instructions: Take your medications as prescribed. If you were prescribed antibiotics today, it is important that you take your medication to their entirety, do not skip any doses, do not finish them early. Follow-up with your primary care provider this week. Return to the emergency department with new or worsening symptoms. Such as redness, swelling, numbness, tingling, warmth to the site, worsening redness, chest pain, shortness of breath, fevers, chills, nausea, vomiting, altered mental status. In case of emergency call 911 Return in 7-10 days for suture removal. Prescriptions: No Action vit-iron fum-folic ac [ Vitamin with Minerals] 28 mg iron- 800 mcg tablet 1 tab PO DAILY 90 Days Qty: 90 3RF ferrous sulfate 324 mg (65 mg iron) tablet,delayed release (DR/EC) 324 mg PO TID Qty: 90 3RF polyethylene glycol 3350 [Miralax] 17 gram/dose powder 17 g PO DAILY Qty: 510 3RF Preparation H 0.25-14-74.9 % ointment 1 appl [place] TID-QID PRN (Reason: hemorrhoids) Qty: 57 1RF Rx Instructions: apply as needed aspirin [Adult Aspirin Regimen] 81 mg tablet,delayed release (DR/EC) 162 mg PO DAILY Qty: 60 4RF sucralfate 1 gram tablet 1 g PO BID Qty: 60 0RF levonorgestrel-ethinyl estrad 0.1-20 mg-mcg tablet 1 tab PO DAILY Qty: 84 4RF Referrals: Alyce Marte MD [Primary Care Provider] - 2 days Stand Alone Forms: Work/School Release
[2021-11-22] MEDS: Lidocaine HCl 2 % MPF 5 ML VIAL SUBCUT (16:54)
[2021-11-22] MEDS: Diphth,Pertus(ACell),Tet Adult 0.5 ML SYRINGE IM (16:54)
== END 2021-11-22 17:44 | disposition home or self-care (01) ==
PROVIDERS: Emergency Provider Emergency Medicine Emergency Medical Services; PCP Internal Medicine
DX: S61.411A Laceration without foreign body of right hand, initial encounter (principal); W25.XXXA Contact with sharp glass, initial encounter; Y93.9 Activity, unspecified; Y92.009 Unspecified place in unspecified non-institutional (private) residence as the place of occurrence of the external cause; Y99.9 Unspecified external cause status
CPT/HCPCS: 12002; 90471; 90715; 99283; 99284

== ENCOUNTER → 2022-02-28 15:03 | Outpatient (BNVA) | payer MEDICAID, SELFPAY | PROVIDERS: PCP Internal Medicine; Visit Provider Advanced Practice Midwife | DX: Z32.01 Encounter for pregnancy test, result positive (principal); N92.6 Irregular menstruation, unspecified | CPT/HCPCS: 81025; 99212 ==

== ENCOUNTER 2022-03-01 12:46 | Outpatient (REF) | payer MEDICAID, SELFPAY ==
--- NOTE | ~2022-03-01 | US_ITS ---
EXAMINATION: US OBSTETRICAL CLINICAL INFORMATION: 31-year-old at 19.5 weeks of gestation Screening for anomaly Insufficient care High BMI COMPARISON: None in this TECHNIQUE: Real-time transabdominal ultrasound was performed using C1-5 megahertz transducer. FINDINGS: A single, active, fetus is seen in vertex presentation. The placenta is posterior without previa, and the amniotic fluid volume is wnl. MEASUREMENTS: 1. Biparietal Diameter: 4.5 cm; 19.5 wks 2. Occipital Frontal Diameter: 5.9 cm 3. Head Circumference: 17.0 cm; 19.5 wks 4. Abdominal Circumference: 14.9 cm; 20.2 wks 5. Femur Length: 2.9 cm; 19.0 wks 6. Humerus Length: 2.9 cm; 19.3 wks 7. Tibia Length: 2.7 cm; 19.5 wks 8. Ulna Length: 2.7 cm; 19.6 wks 9. Lateral ventricle: 0.7 cm 10. Cerebellum: 1.95 cm; 20.0 wks 11. Cisterna Magna: 0.5 cm 12. Nuchal Fold: 4.1 mm 13. Heart Rate: 130 beats per minute Rt ovary: Within normal limits Lt ovary: Within normal limits Cervical length 5.0 cm on T/A. GESTATIONAL AGE: 1. Established GA: N/A wks 2. GA from [facility]: 19.5 wks ESTIMATED DATE OF DELIVERY: 1. Established LUCY: N/A 2. LUCY from [facility]: 07/21/2022 ANATOMY: The visualized anatomy includes but not limited to: 1. Cranium: Normal 2. Intracranial anatomy: cavum septum pellucidi, lateral ventricles, choroid plexus, cerebellum, posterior fossa, third and fourth ventricles. 3. face: orbits, lip/palate, profile, nasal bone 4. Heart: four-chamber view of the heart, ventricular septum, foramen ovale, pulmonary vein, left and right outflow tracts, three-vessel view, 3 vessel trachea view, aortic and ductal arches, situs.. 5. Diaphragm: Normal 6. Abdominal wall: Normal 7. Cord Insertion: Normal 8. Spine: Cervical, thoracic, lumbar, sacral. 9. Stomach: Normal size and shape 10. Right Kidney: Normal 11. Left Kidney: Normal 12. 3 vessel cord: Normal 13. Upper extremity: Open hands, fifth digit. 14. Lower extremity: Tibia, fibula, bilateral feet. 15. Bladder: Normal 16. Genitalia: Female, patient aware US/US OB /maternal detail IMPRESSION: 1. Single, living, intrauterine with appropriate biometry. 2. Normal survey DISCUSSION: I reviewed today's ultrasound findings. We discussed the limitations of ultrasound in diagnosing aneuploidy and other congenital abnormalities. I reviewed the differences between screening test and diagnostic test. Amniocentesis was discussed and declined. She was informed that the baseline incidence of congenital abnormalities is approximately 3-5%. Not all these conditions are diagnosable in utero. RECOMMENDATIONS: 1. Consider follow-up the growth at approximately 28 weeks of gestation (not scheduled). Thank you for allowing me to participate in her care. Total time 30 minutes. The time spent was devoted to counseling the patient about the disease and diagnosis, coordinating care including reviewing her records, pertinent lab data and studies, as well as discussing diagnostic evaluation and workup, plan therapeutic interventions and future disposition of care. This includes any additional research needed to obtain further information in formulating the plan of care of this patient. This note was generated with a voice recognition program. Please excuse any errors which may have been overlooked during my review of this note. Sometimes these errors may affect the content or meaning of a given sentence.
== END 2022-03-01 12:47 | disposition home or self-care (01) ==
LOC: HO.US 12:46
PROVIDERS: PCP Internal Medicine; Visit Provider Advanced Practice Midwife
DX: O09.30 Supervision of pregnancy with insufficient antenatal care, unspecified trimester (principal); N92.6 Irregular menstruation, unspecified; Z3A.00 Weeks of gestation of pregnancy not specified
CPT/HCPCS: 76811

== ENCOUNTER → 2022-03-04 14:07 | Outpatient (BNVA) | payer MEDICAID, SELFPAY | PROVIDERS: PCP Internal Medicine; Visit Provider Advanced Practice Midwife | DX: O09.32 Supervision of pregnancy with insufficient antenatal care, second trimester (principal); O99.012 Anemia complicating pregnancy, second trimester; D64.9 Anemia, unspecified; Z3A.20 20 weeks gestation of pregnancy | CPT/HCPCS: 99212 ==

== ENCOUNTER 2022-03-08 14:59 | Outpatient (REF) | payer MEDICAID, SELFPAY ==
[2022-03-08 17:30] LABS: Hematocrit 34.6 % (37.0-47.0); Hemoglobin 11.7 g/dl (12.0-16.0); Mean Corpuscular HGB Conc 33.8 g/dl (31.0-35.0); Mean Corpuscular Volume 91.5 fL (80.0-98.0); Mean Platelet Volume 10.3 fL (9.4-12.3); Platelet Count 243 X10*3/uL (160-400); Red Blood Count 3.78 X10*6/uL (4.20-5.50); Red Cell Distribution Width 12.3 % (11.0-16.0); White Blood Count 9.5 X10*3/uL (4.8-10.8)
[2022-03-08 17:51] LABS: Glucose 1 Hour PP 50gm Dose 118 mg/dL (60-140)
[2022-03-08 18:01] LABS: Amphetamine Screen Urine Not Detected (Not Detect); Barbiturates, Urine Not Detected (Not Detect); Benzodiazepines Screen Urine Not Detected (Not Detect); Cannabinoid Screen Urine Not Detected (Not Detect); Cocaine Screen Urine Not Detected (Not Detect); Fentanyl, urine Not Detected (Not Detect); Opiate Screen Urine Not Detected (Not Detect); Phencyclidine Screen Urine Not Detected (Not Detect)
[2022-03-08 18:15] LABS: Syphilis Screen Nonreactive (Nonreactive)
[2022-03-11 08:19] LABS: HBsAGNum1 0.16 S/CO (0.00-0.99); HIV AB/AG Nonreactive (Nonreactive); HIV Num 1 0.06 S/CO (0.00-0.99); Hepatitis B Surface Antigen Negative (Negative); ~HepC Num1 0.05 S/CO (0.00-0.79); ~Hepatitis C Antibody Nonreactive (Nonreactive)
== END 2022-03-08 15:00 | disposition home or self-care (01) ==
LOC: HO.LAB 14:59
PROVIDERS: PCP Internal Medicine; Visit Provider Advanced Practice Midwife
DX: Z32.01 Encounter for pregnancy test, result positive (principal)
CPT/HCPCS: 80307; 85027; 86762; 86780; 86787; 86803; 86850; 86900; 87086; 87340; 87389

== ENCOUNTER 2022-03-29 15:08 | Outpatient (REF) | payer MEDICAID, SELFPAY ==
[2022-03-30 14:54] LABS: BV Int Neg Control Negative (Negative); BV Int Pos Control Positive (Positive)
[2022-03-30 16:51] LABS: CT PCR NOT DETECTED (Not Detect.); NG PCR NOT DETECTED (Not Detect.)
== END 2022-03-29 15:09 | disposition home or self-care (01) ==
LOC: HO.LAB 15:08
PROVIDERS: PCP Internal Medicine; Visit Provider Advanced Practice Midwife
DX: O99.212 Obesity complicating pregnancy, second trimester (principal); O26.892 Other specified pregnancy related conditions, second trimester; R12 Heartburn; B37.3 Candidiasis of vulva and vagina; Z3A.23 23 weeks gestation of pregnancy
CPT/HCPCS: 81003; 87480; 87491; 87510; 87591; 87660; 99212

== ENCOUNTER → 2022-05-07 13:05 | Outpatient (BNVA) | payer MEDICAID, SELFPAY | PROVIDERS: PCP Internal Medicine; Visit Provider Advanced Practice Midwife | DX: O99.213 Obesity complicating pregnancy, third trimester (principal); O36.63X0 Maternal care for excessive fetal growth, third trimester, not applicable or unspecified; E66.01 Morbid (severe) obesity due to excess calories; Z3A.29 29 weeks gestation of pregnancy; Z68.41 Body mass index [BMI] 40.0-44.9, adult; Z20.2 Contact with and (suspected) exposure to infections with a predominantly sexual mode of transmission | CPT/HCPCS: 81003; 99212 ==

== ENCOUNTER 2022-05-14 15:56 | Outpatient (REF) | payer MEDICAID, SELFPAY ==
[2022-05-14 18:07] LABS: Hematocrit 35.9 % (37.0-47.0); Hemoglobin 12.1 g/dl (12.0-16.0); Mean Corpuscular HGB Conc 33.7 g/dl (31.0-35.0); Mean Corpuscular Hemoglobin 31.3 pg (27.0-33.0); Mean Corpuscular Volume 92.8 fL (80.0-98.0); Mean Platelet Volume 10.1 fL (9.4-12.3); Platelet Count 245 X10*3/uL (160-400); Red Blood Count 3.87 X10*6/uL (4.20-5.50); Red Cell Distribution Width 12.2 % (11.0-16.0); White Blood Count 10.5 X10*3/uL (4.8-10.8)
[2022-05-14 18:17] LABS: Glucose 1 Hour PP 50gm Dose 125 mg/dL (60-140)
[2022-05-15 05:53] LABS: Syphilis Screen Nonreactive (Nonreactive)
== END 2022-05-14 15:57 | disposition home or self-care (01) ==
LOC: HO.LAB 15:56
PROVIDERS: PCP Internal Medicine; Visit Provider Advanced Practice Midwife
DX: Z34.93 Encounter for supervision of normal pregnancy, unspecified, third trimester (principal); Z20.2 Contact with and (suspected) exposure to infections with a predominantly sexual mode of transmission
CPT/HCPCS: 36415; 85027; 86780

== ENCOUNTER 2022-05-17 16:37 | Outpatient (REF) | payer MEDICAID, SELFPAY ==
[2022-05-24 16:17] LABS: Parvovirus B19 IgG <0.9; Parvovirus B19 IgM <0.9
== END 2022-05-17 16:38 | disposition home or self-care (01) ==
LOC: HO.LAB 16:37
PROVIDERS: PCP Internal Medicine; Visit Provider Obstetrics & Gynecology
DX: Z20.828 Contact with and (suspected) exposure to other viral communicable diseases (principal)
CPT/HCPCS: 36415; 86747

== ENCOUNTER → 2022-05-21 13:27 | Outpatient (BNVA) | payer MEDICAID, SELFPAY | PROVIDERS: PCP Internal Medicine; Visit Provider Obstetrics & Gynecology | DX: O99.210 Obesity complicating pregnancy, unspecified trimester (principal); E66.9 Obesity, unspecified; Z20.828 Contact with and (suspected) exposure to other viral communicable diseases; Z3A.31 31 weeks gestation of pregnancy | CPT/HCPCS: 99212 ==

== ENCOUNTER → 2022-06-05 15:15 | Outpatient (BNVA) | payer MEDICAID, SELFPAY | PROVIDERS: PCP Internal Medicine; Visit Provider Advanced Practice Midwife | DX: Z34.83 Encounter for supervision of other normal pregnancy, third trimester (principal); Z3A.33 33 weeks gestation of pregnancy | CPT/HCPCS: 81003; 99212 ==

== ENCOUNTER → 2022-06-19 14:06 | Outpatient (BNVA) | payer MEDICAID, SELFPAY | PROVIDERS: PCP Internal Medicine; Visit Provider Advanced Practice Midwife | DX: O36.63X0 Maternal care for excessive fetal growth, third trimester, not applicable or unspecified (principal); O99.213 Obesity complicating pregnancy, third trimester; E66.01 Morbid (severe) obesity due to excess calories; O99.013 Anemia complicating pregnancy, third trimester; D64.9 Anemia, unspecified; O09.33 Supervision of pregnancy with insufficient antenatal care, third trimester; Z3A.35 35 weeks gestation of pregnancy | CPT/HCPCS: 81003; 99212 ==

== ENCOUNTER 2022-06-26 13:01 | Outpatient (REF) | payer MEDICAID, SELFPAY ==
[2022-06-26 18:46] LABS: CT PCR NOT DETECTED (Not Detect.); NG PCR NOT DETECTED (Not Detect.)
[2022-06-27 10:09] LABS: BV Int Neg Control Negative (Negative); BV Int Pos Control Positive (Positive)
[2022-07-04 14:27] LABS: Parvovirus B19 IgG <0.9; Parvovirus B19 IgM <0.9
== END 2022-06-26 13:02 | disposition home or self-care (01) ==
LOC: HO.LAB 13:01
PROVIDERS: Absent Provider Obstetrics & Gynecology; PCP Internal Medicine; Visit Provider Advanced Practice Midwife
DX: O99.213 Obesity complicating pregnancy, third trimester (principal); O36.63X0 Maternal care for excessive fetal growth, third trimester, not applicable or unspecified; O26.843 Uterine size-date discrepancy, third trimester; E66.01 Morbid (severe) obesity due to excess calories; Z20.828 Contact with and (suspected) exposure to other viral communicable diseases; Z68.41 Body mass index [BMI] 40.0-44.9, adult; Z3A.36 36 weeks gestation of pregnancy
CPT/HCPCS: 36415; 81003; 86747; 87081; 87147; 87480; 87491; 87510; 87591; 87660; 99212

== ENCOUNTER → 2022-07-04 14:04 | Outpatient (BNVA) | payer MEDICAID, SELFPAY | PROVIDERS: PCP Internal Medicine; Visit Provider Advanced Practice Midwife | DX: O36.8130 Decreased fetal movements, third trimester, not applicable or unspecified (principal); Z3A.37 37 weeks gestation of pregnancy | CPT/HCPCS: 81003; 99212 ==

== ENCOUNTER 2022-10-16 14:19 | Outpatient (REF) | payer MEDICAID, SELFPAY | END 2022-10-16 14:20 | disposition home or self-care (01) | LOC: HO.LAB 14:19 | PROVIDERS: PCP Internal Medicine; Visit Provider Advanced Practice Midwife | DX: Z13.89 Encounter for screening for other disorder (principal) ==

== ENCOUNTER 2022-10-16 14:56 | Outpatient (REF) | payer MEDICAID, SELFPAY ==
[2022-10-17 07:16] LABS: CT PCR NOT DETECTED (Not Detect.); NG PCR NOT DETECTED (Not Detect.)
[2022-10-17 12:43] LABS: BV Int Neg Control Negative (Negative); BV Int Pos Control Positive (Positive)
== END 2022-10-16 14:57 | disposition home or self-care (01) ==
LOC: HO.LNP 14:56
PROVIDERS: Visit Provider Advanced Practice Midwife
DX: N92.1 Excessive and frequent menstruation with irregular cycle (principal); Z20.2 Contact with and (suspected) exposure to infections with a predominantly sexual mode of transmission
CPT/HCPCS: 0353U; 87480; 87510; 87660

== ENCOUNTER 2023-01-17 08:49 | Outpatient (REF) | payer MEDICAID, SELFPAY ==
[2023-01-17 13:38] LABS: CT PCR NOT DETECTED (Not Detect.); NG PCR NOT DETECTED (Not Detect.)
== END 2023-01-17 08:50 | disposition home or self-care (01) ==
LOC: HO.LNP 08:49
PROVIDERS: PCP Internal Medicine; Visit Provider Advanced Practice Midwife
DX: Z30.430 Encounter for insertion of intrauterine contraceptive device (principal)
CPT/HCPCS: 0353U; 58300; 81025; J7298

== ENCOUNTER 2023-01-28 10:00 | Outpatient (RCR) | payer MEDICAID, SELFPAY ==
--- NOTE | 2022-12-31 11:53 | MHC.PT.EP ---
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 SHE HAS DECR DOROTHY TO SQUATTING, STANDING, WALKING, LIFTING, CARRYING- WORK AND HOME TASKS DURE TO HER PAIN. OBJECTIVELY, Pt HAS DECR POSTURAL AWARENESS, LIMITED TRUNK AROM, STRENGTH DEFICITS IN HER DEEPER CORE/ LUMBOPELVIC STABILIZERS, (+) TISSUE TENSION IN HER LUMBOSACRAL SOFT TISSUES, TIGHT HIP FLEXORS SHANNON, AND PAIN IN HER SHANNON L/S REGION AND INTERM INTO HER THOGH MUSCLES. Pt WOULD BENEFIT FROM PT TO ADDRESS THE ABOVE, GUIDE HER IN HER POST- COURSE WE DEV A HEP, IMPROVE EFFICIENCY OF HER GAIT AND BODY MECH W ADLs/ WORK, AND ADDRESS PAIN MGMT STRATEGIES. Frequency and Duration: The patient will be seen 2 x WK x 8 WKS Short Term Goals: *Pt'S LB PAIN DECR TO 2-3/10 *INCR FLEXIB IN PSOAS/ CALF MM TO IMPROVE EFFICIENCY OF GAIT ON LEVEL AND STAIRS AND GENERAL BODY MECH *Pt INDEP W SELF-CORRECT POSTURE AND DEMON WFL SQUAT MECHANICS W ADL SIMUL Video Systems Engineer Goals: Pt INDEP W HEP PROGRESSION AND SELF-SX MGMT STRATEGIES Pt RESUME REG ADLs EVIDENT W IMPROVED OSWESTRY SCORE (AT EVAL 13/50 ) Pt INCR LUMBOPELVIC AND LE STRENGTH BY 1 GRADE Treatment Plan: Modalities to reduce pain, spasms and effusion. Manual therapy to restore motion and function. Therapeutic exercise to improve strength and flexibility. Neuromuscular re-education for posture and balance. Therapeutic activities to return to functional activities of daily living. Electronically signed by: JEREMIAH GRANT,PT Please sign and return to therapist. Thank you for your referral.
== END 2023-03-21 13:30 | disposition home or self-care (01) ==
LOC: HO.PT 10:00
PROVIDERS: PCP Internal Medicine; Visit Provider Internal Medicine
DX: M41.9 Scoliosis, unspecified (principal)
CPT/HCPCS: 97110; 97140; 97162; 97530

== ENCOUNTER 2023-02-18 14:21 | Outpatient (REF) | payer MEDICAID, SELFPAY ==
[2023-02-18 14:44] LABS: MANUAL DIFF FLAG NO
[2023-02-18 15:49] LABS: Basophils Absolute Auto 0.1 X10*3/uL (0.0-0.2); Basophils Percent Auto 0.6 % (0-2); Eosinophils Absolute Auto 0.1 X10*3/uL (0.0-0.4); Eosinophils Percent Auto 1.3 % (0-4); Hematocrit 37.6 % (37.0-47.0); Hemoglobin 12.6 g/dl (12.0-16.0); Imm Gran Abs Auto 0.03 X10*3/uL (0.00-0.03); Imm Gran Pct Auto 0.3 % (0.0-0.4); Lymphocytes Absolute Auto 2.3 X10*3/uL (1.2-4.9); Lymphocytes Percent Auto 26.2 % (20-40); Mean Corpuscular HGB Conc 33.5 g/dl (31.0-35.0); Mean Corpuscular Hemoglobin 30.3 pg (27.0-33.0); Mean Corpuscular Volume 90.4 fL (80.0-98.0); Mean Platelet Volume 10.2 fL (9.4-12.3); Monocytes Absolute Auto 0.5 X10*3/uL (0.1-1.2); Monocytes Percent Auto 6.2 % (2-11); Neutrophils Absolute Auto 5.6 x10*3/uL (2.0-8.3); Neutrophils Percent Auto 65.4 % (45-73); Platelet Count 292 X10*3/uL (160-400); Red Blood Count 4.16 X10*6/uL (4.20-5.50); Red Cell Distribution Width 12.1 % (11.0-16.0); White Blood Count 8.6 X10*3/uL (4.8-10.8)
[2023-02-18 16:05] LABS: Alanine Aminotransferase 27 U/L (0-31); Albumin Level 4.4 g/dL (3.5-5.0); Alkaline Phosphatase 99 U/L (39-117); Anion Gap 13 (12-20); Aspartate Amino Transferase 18 U/L (5-31); Bilirubin Total 0.4 mg/dL (0.0-1.0); Blood Urea Nitrogen 13 mg/dL (9-16); Carbon Dioxide 26 mmol/L (22-29); Chloride 106 mmol/L (96-108); Cholesterol 198 mg/dL; Estimated Glomerular Filt Rate > 60; Glucose Random 115 mg/dL (60-115); HDL Cholesterol 34 mg/dL; LDL Cholesterol Calculated 89 mg/dl; Potassium 3.9 mmol/L (3.3-5.1); Sodium 141 mmol/L (135-145); Total Protein 7.4 g/dL (6.5-8.0); Triglycerides 379 mg/dL
[2023-02-18 16:15] LABS: Thyroid Stimulating Hormone 0.39 uIU/mL (0.32-4.0)
[2023-02-19 04:51] LABS: Syphilis Screen Nonreactive (Nonreactive)
[2023-02-19 05:00] LABS: HBc Num1 0.11 S/CO (0.00-0.79); HIV AB/AG Nonreactive (Nonreactive); HIV Num 1 0.07 S/CO (0.00-0.99); Hepatitis B Core Antibody Nonreactive (Nonreactive); ~HepC Num1 0.06 S/CO (0.00-0.79); ~Hepatitis C Antibody Nonreactive (Nonreactive)
== END 2023-02-18 14:22 | disposition home or self-care (01) ==
LOC: HO.LAB 14:21
PROVIDERS: Advanced Practice Midwife; PCP Internal Medicine; Visit Provider Internal Medicine
DX: Z00.00 Encounter for general adult medical examination without abnormal findings (principal); Z11.4 Encounter for screening for human immunodeficiency virus [HIV]; R10.9 Unspecified abdominal pain; M94.0 Chondrocostal junction syndrome [Tietze]; M54.50 Low back pain, unspecified; Z20.2 Contact with and (suspected) exposure to infections with a predominantly sexual mode of transmission; N92.1 Excessive and frequent menstruation with irregular cycle
CPT/HCPCS: 36415; 80053; 80061; 84443; 85025; 86704; 86780; 86803; 87389

== ENCOUNTER 2023-03-27 08:58 | Outpatient (REF) | payer MEDICAID, SELFPAY ==
--- NOTE | 2023-03-27 09:03 | EMG_ITS ---
Right median and ulnar motor and sensory studies were performed. Right radial sensory study was performed and paraspinal muscles were tested with a needle. IMPRESSION: 1. [id number] right median neuropathy across carpal tunnel. 2. 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 MD EMILIA Peraza/FINN / [id number]
== END 2023-03-27 08:59 | disposition home or self-care (01) ==
LOC: HO.NEURO 08:58
PROVIDERS: PCP Internal Medicine; Visit Provider Internal Medicine
DX: G56.01 Carpal tunnel syndrome, right upper limb (principal)
CPT/HCPCS: 95886; 95909

== ENCOUNTER 2023-03-28 13:15 | Outpatient (AMB) | payer MEDICAID, SELFPAY ==
--- NOTE | 2023-03-28 13:17 | A.OFFVIS_ITS ---
Intake Vital Signs 03/28/23 13:22 Height 5 ft 6 in Weight 276 lb BMI 44.5 BP 124/60 Intake Visit Reasons: IUD check/? Removal consult Intake Note: The patient agreed to use of a medical corps officer during this encounter. Scribed for MARIXA Wooten by Chrissy Cartwright medical corps officer, on 03/28/2023 at 1:35 pm EST Properties Supervisor Required: No Information Interpreted: non-clinical & clinical Transaction Processor: Transaction Processor Present (Gladis) Allergies No Known Allergies Allergy (Verified 03/28/23 13:24) Is last menstrual period known: No Post menopausal: No Patient : No HPI HPI Comments History of Present Illness Details She is presenting for IUD check. She had the Mirena IUD placed on 01/17/23. Reports bleeding almost everyday. Also reports blood clots. She is interested in removal. Has not been sexually active for one year. Admits to vaginal irritation for the past 2 weeks. PFSH Medical History Cervical cancer screening IBS (irritable bowel syndrome) Kidney stones Morbid obesity Scoliosis Surgical History Hx of section Family History Paternal Grandmother Hx of diabetes mellitus Social History Household Members: Significant Other and Children Both parents involved: Yes Housing: House Are you a primary day care home mother to a significant other at home: No Do you presently have visiting nurse or other home services: No 75 years or older and lives alone: No Alcohol intake: never Patient Tobacco Use Status: Never used Tobacco Special pito needs: No Agree to transfusion: Yes Female Reproductive History Menstrual Age of Menarche: 10 control method: progestin IUCD Date of last pap smear: 11/17/20 (negative) Review of Systems Const All systems reviewed & are unremarkable except as noted in HPI and below Reports abnormal menses Physical Exam Vital Signs: Last Vital Signs BP 124/60 03/28/23 13:22 BMI result Body Mass Index 44.5 Const General: cooperative, no acute distress, well developed and alert External Female Exam: normal external appearance Speculum Exam - Vagina: normal appearance of the vagina Speculum Exam - Cervix: normal appearance of the cervix and Other cervical findings present (IUD strings visible) Bimanual exam- vagina & uterus: normal bimanual exam, uterine size normal, uterine shape normal and non-tender Bimanual Exam- Adnexa, other: normal adnexae and no masses Results AMB Test Urine AMB Test Urine Negative Last Edit by RICO Cuevas on 03/28/23 13:29 Results Reviewed Results Reviewed: Laboratory Last Values Tst Clinic Negative 03/28/23 13:28 Assessment & Plan Assessment & Plan (1) IUD check up: Code(s): Z30.431 - Encounter for routine checking of intrauterine contraceptive device Plan: Bleeding tends to taper down, some women do not bleed at all for months, some have unscheduled and random bleeding. Discussed work up including pelvic US to determine IUD placement. Pending results will have further discussion on treatment for irregular bleeding including NSAID protocol. All of her questions and concerns were addressed to the best of my ability and she is agreeable to plan of care. RTO for test results. (2) Breakthrough bleeding associated with intrauterine device (IUD): Code(s): N92.1 - Excessive and frequent menstruation with irregular cycle; Z97.5 - Presence of (intrauterine) contraceptive device Orders: Orders US pelvic and transvaginal Today N92.1 - Excessive and frequent menstruation with irregular cycle, Z30.431 - Encounter for routine checking of intrauterine contraceptive device, Z97.5 - Presence of (intrauterine) contraceptive device Bacterial Vaginosis Panel Today B37.3 - Candidiasis of vulva and vagina AMB HCG Urine Test Today Z32.02 - Encounter for test, result negative Coding Level of Care Code Est Pt Level 3 (43966) Diagnoses IUD check up Z30.431 Breakthrough bleeding associated with intrauterine device (IUD) N92.1; Z97.5
[2023-03-28 13:22] VITALS: BP 124/60; BMI 44.5
== END 2023-03-28 13:45 | disposition home or self-care (01) ==
LOC: HO.HWS 13:15
PROVIDERS: PCP Internal Medicine; Visit Provider Advanced Practice Midwife
DX: Z30.431 Encounter for routine checking of intrauterine contraceptive device (principal); N92.1 Excessive and frequent menstruation with irregular cycle; Z32.02 Encounter for pregnancy test, result negative
CPT/HCPCS: 99213

== ENCOUNTER 2023-03-28 13:15 | Outpatient (REF) | payer MEDICAID, SELFPAY ==
[2023-03-29 12:10] LABS: BV Int Neg Control Negative (Negative); BV Int Pos Control Positive (Positive)
== END 2023-03-28 13:16 | disposition home or self-care (01) ==
LOC: HO.LNP 13:15
PROVIDERS: PCP Internal Medicine; Visit Provider Advanced Practice Midwife
DX: N92.1 Excessive and frequent menstruation with irregular cycle (principal); Z97.5 Presence of (intrauterine) contraceptive device; B37.31 Acute candidiasis of vulva and vagina
CPT/HCPCS: 81025; 87480; 87510; 87660; 99213

== ENCOUNTER 2023-04-22 14:58 | Outpatient (REF) | payer MEDICAID, SELFPAY ==
--- NOTE | ~2023-04-22 | US_ITS ---
EXAMINATION: US PELVIS CLINICAL INFORMATION: Abnormal bleeding. Check IUD. COMPARISON: None available. TECHNIQUE: Transabdominal pelvic ultrasound was performed. Patient declined transvaginal imaging. FINDINGS: The uterus is anteverted and anteflexed and measures 9.7 x 4.4 x 5.5 cm in dimension. IUD appears satisfactorily positioned on transabdominal imaging. The endometrium does not appear thickened measuring 6 mm. The ovaries are normal-appearing. The right ovary measures 3 x 2.5 x 4 cm. The left ovary measures 2.7 x 2.4 x 2.2 cm. There is no fluid in the pelvis. US/US pelvic complete IMPRESSION: IUD in the uterus in satisfactory position.
== END 2023-04-22 14:59 | disposition home or self-care (01) ==
LOC: HO.US 14:58
PROVIDERS: PCP Internal Medicine; Visit Provider Advanced Practice Midwife
DX: N92.1 Excessive and frequent menstruation with irregular cycle (principal); Z30.431 Encounter for routine checking of intrauterine contraceptive device
CPT/HCPCS: 76856

== ENCOUNTER 2023-10-06 09:48 | Emergency (ER) | payer MEDICAID, SELFPAY ==
--- NOTE | ~2023-10-06 | CT_ITS ---
EXAMINATION: CT ABDOMEN AND PELVIS WITH CONTRAST CLINICAL INFORMATION: Right upper quadrant pain. COMPARISON: Right upper quadrant ultrasound 10/06/2023 CT abdomen/pelvis 11/20/2019 TECHNIQUE: Multidetector volumetric images were obtained from the superior aspect of the liver through the pubic symphysis following administration 85 mL of Omnipaque 350 intravenous contrast. Sagittal and coronal reformatted images were obtained on the technologist's workstation. Oral contrast: No This CT examination was performed using dose optimization techniques as appropriate, variously including the following: *Automated exposure control *Adjustment of mA and/or kV according to patient size (this includes techniques or standardized protocols for targeted exams where dose is matched to indication/reason for exam; i.e. extremities or head) *Use of iterative reconstruction technique DLP: 984 mGy-cm FINDINGS: LUNG BASES: The visualized lung bases are unremarkable. LIVER, GALLBLADDER, AND BILIARY TREE: The liver is enlarged and decreased in attenuation. No focal hepatic lesion or biliary ductal dilatation is present. The gallbladder is unremarkable with no evidence of radiopaque gallstones, gallbladder wall thickening, or obvious pericholecystic inflammatory changes. PANCREAS: Unremarkable. SPLEEN: Unremarkable. ADRENAL GLANDS: Unremarkable. KIDNEYS AND URETERS: The kidneys are symmetric in size and enhancement. 3 mm nonobstructing midpole right renal calculus. No hydronephrosis or perinephric stranding. BLADDER: Underdistended. GASTROINTESTINAL TRACT: Small and large bowel loops are of normal caliber. Appendix is within normal limits. ABDOMINAL WALL: Small umbilical hernia containing fat. LYMPH NODES: No bulky lymphadenopathy. VASCULAR: Normal caliber abdominal aorta. PELVIC VISCERA: Intrauterine device in place. OSSEOUS STRUCTURES: No destructive bone lesions. CT/CT abdomen pelvis w IV con IMPRESSION: Hepatomegaly and hepatic steatosis. 3 mm nonobstructing right renal calculus. No hydronephrosis.
--- NOTE | ~2023-10-06 | US_ITS ---
EXAMINATION: US ABDOMEN LIMITED CLINICAL INFORMATION: Right upper quadrant pain. COMPARISON: CT abdomen pelvis 11/20/2019 TECHNIQUE: Real-time imaging of the right upper quadrant abdominal viscera. FINDINGS: PANCREAS: The pancreas appears unremarkable, without masses or ductal dilatation, with the exception of the distal body the tail which are obscured by bowel gas. LIVER: Although the liver was enlarged at the time of the 2019 CT scan at 19.2 cm, it is larger on today's study measuring 24.2 cm in greatest dimension. The liver contour is normal. There is diffuse increased liver parenchymal echogenicity, consistent with hepatic steatosis. No focal hepatic lesion. There is no intrahepatic biliary duct dilatation seen. GALLBLADDER: The gallbladder is physiologically distended without evidence of stones, sludge, polyps, wall thickening or pericholecystic fluid. COMMON BILE DUCT: Normal in caliber measuring 0.5 cm in diameter. RIGHT KIDNEY: No hydronephrosis. No renal calculi or focal parenchymal lesions. Multiple previously seen nonobstructing right renal calculi are not visualized on this exam. The kidney measures 12.6 cm in maximum dimension. FREE FLUID: None. US/US abdomen limited IMPRESSION: Enlarged fatty liver.
[2023-10-06 09:51] VITALS: BP 124/81; PULSE 97; RESP 19; TEMP 36.6; O2SAT 97; BMI 43.8
--- NOTE | 2023-10-06 10:18 | PC.NURSE ---
Patient reports started with uti symptoms on friday and was taking AZO tablets. Reports yesterday started having pain in left lower abdomen and back. Reports has had a kidnsey stone before. Denies blood in urine, nausea or vomiting.
[2023-10-06 10:27] LABS: Appearance Urine Turbid; Color Urine Yellow; Glucose Urine UA Negative (Negative); Leukocyte Esterase Urine Large (3+) (Negative); Nitrite Urine Positive (Negative); UMIC TRIGGER UACC YES; Urine Blood Large (3+) (Negative); Urine Ketones Negative (Negative); Urine Protein 100 (2+) mg/dL (Neg-Trace)
--- NOTE | 2023-10-06 10:30 | ED.FEMALEGU ---
HPI - Female Genitourinary General Chief complaint: Urogenital-Female Stated complaint: UTI Time Seen by Provider: 10/06/23 10:19 Source: patient, RN notes reviewed and old records reviewed Mode of arrival: ambulatory History of Present Illness HPI Narrative: 33-year-old female with a past medical history of renal stones, , presenting to the ED complaining of dysuria x4 days and R flank/RUQ abdominal pain x3 days. Admits pain is constant. Denies fever, chills, nausea, vomiting, diarrhea/constipation MD elicited complaint: dysuria and UTI Related Data Home Medications Medication Instructions Recorded Confirmed levonorgestrel 21 mcg/24 hours (8 intrauterine 03/28/23 yrs) 52 mg intrauterine device (Mirena) Previous Rx's Medication Instructions Recorded ketorolac 10 mg tablet 10 mg PO TID PRN pain 5 days #15 10/06/23 tabs tamsulosin 0.4 mg capsule (Flomax) 0.4 mg PO DAILY #14 caps 10/06/23 cefuroxime axetil 250 mg tablet 250 mg PO BID 7 days #14 tabs 10/10/23 Allergies Allergy/AdvReac Type Severity Reaction Status Date / Time No Known Allergies Allergy Verified 10/06/23 09:51 Review of Systems Review of Systems: Constitutional: No Fever, No Chills ENT/Mouth: No Ear Pain, No Nasal Congestion, No sore throat, No Rhinorrhea, No Swallowing Difficulty Cardiovascular: No Chest Pain, No SOB Respiratory: No Cough, No Sputum Gastrointestinal: No Nausea, No Vomiting, No Diarrhea, No Constipation, +abdominal pain Genitourinary: + Dysuria, No Urinary Frequency, No Hematuria, No Urinary Incontinence/retention, + Flank Pain Musculoskeletal: No joint pain, No Myalgias, No Joint Swelling Skin: No Skin Lesions, No rash Neuro: No Weakness Yes all other systems are reviewed and are negative Constitutional: Constitutional: Reports as per [facility] Past Medical History Attestation statement: The following information was validated with the patient. Source: old records reviewed Onset Date is defined in the Problem List Problems that require an onset date and time if occurred within 24 hrs of arrival to the ED Aortic Dissection and Rupture; Neurologic impairment; Cardiopulmonary Arrest; Endotracheal Intubation; Insertion or Replacement of Mechanical Circulatory Assist Device Medical History Kidney stones Morbid obesity Cervical cancer screening Scoliosis IBS (irritable bowel syndrome) Surgical History Hx of section Family History Family History Paternal Grandmother Hx of diabetes mellitus Social History Social History Household Members: Significant Other and Children Housing: House Are you a primary insurance healthcare consultant to a significant other at home: No Do you presently have visiting nurse or other home services: No Alcohol intake: never Patient Tobacco Use Status: Never used Tobacco Smoked in Last 30 Days: No Use of substances other than those prescribed or required for medical reasons: No Special pito needs: No Agree to transfusion: Yes Advance Directives: No Advance Directives Information Provided: Yes Physical Exam Vital Signs: Vital Signs: Last Vital Signs Temp 98 F 10/06/23 09:51 Pulse 97 10/06/23 09:51 Resp 19 10/06/23 09:51 BP 124/81 10/06/23 09:51 Pulse Ox 97 10/06/23 09:51 O2 Del Method Room Air 10/06/23 09:51 BMI result Body Mass Index 43.8 Const: General: cooperative, healthy appearing and no acute distress Orientation/consciousness: patient oriented x3 Limitations: no limitations HEENT: Head: Yes normal to inspection and Yes atraumatic Ears: hearing grossly normal bilaterally General nose exam: Normal external nose present Face and sinus: Yes normal facial exam Eyes: General: appearance normal, both eyes and all related structures EOM: EOMs intact bilaterally Neck: Neck: Yes normal visual inspection and Yes no meningeal signs Resp: Effort & Inspection: normal respiratory effort and no respiratory distress Auscultation: clear to auscultation bilaterally Cardio: Rate: regular rate Heart sounds: S1 normal heart sound present and S2 normal heart sound present GI: Inspection: Yes normal to inspection Palpation (GI): Soft to palpation, Tenderness to palpation present (GI) in the epigastrum and in the RUQ; with no rebound tenderness, no guarding and not rigid : General: Yes no CVA tenderness Back/Spine/Pelvis: Back: no CVA tenderness Skin: Rashes: no rashes Wounds: no wounds Neuro: General: patient oriented x3, tone normal and no meningeal signs Cranial nerves: Yes CN's II-XII intact bilaterally Gait exam (Neuro): Normal gait present Extrem: General: Yes normal to inspection Course Course Course Narrative: 1102--UA infected > IV Rocephin ordered US abdomen limited IMPRESSION: Enlarged fatty liver. 1318--on re-evaluation patient reports pain is the same. Labs reassuring, discussed lab and ultrasound results. Abdomen soft still with RUQ and R sided abdominal ttp > will obtain CT for further eval 1535--CT abdomen pelvis w IV con IMPRESSION: Hepatomegaly and hepatic steatosis. 3 mm nonobstructing right renal calculus. No hydronephrosis. > suspect patient passed or is passing stone. Will discharge home with Flomax and Toradol with urology follow-up. 1537--On re-evaluation patient is lying comfortably. Results discussed. Results discussed with patient including worrisome signs and symptoms and strict return precautions, and when to return to the emergency department. They verbalized understanding and feel safe for discharge at this time. 10/10/23--1153--urine culture grew E coli, pansensitive. Patient was known to have UTI during visit however antibiotics were never sent to the pharmacy. Ceftin 250 b.i.d. sent to the pharmacy, patient called and made aware. Medications Administered Discontinued Medications Generic Name Dose Route Start Last Admin Trade Name Freq PRN Reason Stop Dose Admin Sodium Chloride 1,000 mls @ 999 mls/hr 10/06/23 10:45 10/06/23 13:39 Ns IV 10/06/23 11:45 Infused .Q1H1M MAHI Infusion Ceftriaxone Sodium 1 gm/ 50 mls @ 100 mls/hr 10/06/23 10:54 10/06/23 12:26 Sodium Chloride IV 10/06/23 11:23 Infused ONCE ONE Infusion Iohexol 100 ml 10/06/23 14:58 10/06/23 14:59 Iohexol 350 Mg/Ml 100 Ml Infus..Btl IV 10/06/23 14:59 85 ml ONCE ONE Administration Ketorolac Tromethamine 15 mg 10/06/23 10:36 10/06/23 11:08 Ketorolac Tromethamine 15 Mg/Ml Vial IVPUSH 10/06/23 10:37 15 mg ONCE ONE Administration Morphine Sulfate 2 mg 10/06/23 13:19 10/06/23 13:37 Morphine Sulfate 2 Mg/Ml Cartridge IVPUSH 10/06/23 13:20 2 mg ONCE ONE Administration Protocol Medical Decision Making Medical Decision Making [facility] Narrative: 33-year-old female with a past medical history of renal stones, , presenting to the ED complaining of dysuria x4 days and R flank/RUQ abdominal pain x3 days. On exam vital signs stable, NAD, nontoxic appearing, abdomen soft with RUQ/epigastric tenderness, no rebound or guarding, no appreciable rash. No CVAT. Concern for UTI vs pyelonephritis vs cholecystitis/lithiasis vs pancreatitis. Lower suspicion for appendicitis/diverticulitis Plan: Labs, UA, ultrasound, IVF, pain control, re-evaluate Please refer to course for remaining clinical decision making, interpretation of labs/imaging results, and discussions with consultants and/or family members. Differential Diagnosis Differential Diagnoses: The differential diagnosis associated with the presentation includes As above Admission/Observation Consideration of admission/observation: Escalation of care including admission/observation considered Lab Data [facility] Lab Attestation statement: I reviewed the patient's lab results. 10/06/23 11:14 10/06/23 11:14 Labs: Lab Results 10/06/23 10/06/23 10/06/23 Range/Units 10:20 11:02 11:14 WBC 10.5 (4.8-10.8) X10*3/uL RBC 4.25 (4.20-5.50) X10*6/uL Hgb 12.7 (12.0-16.0) g/dl Hct 38.1 (37.0-47.0) % MCV 89.6 (80.0-98.0) fL MCH 29.9 (27.0-33.0) pg MCHC 33.3 (31.0-35.0) g/dl RDW 11.9 (11.0-16.0) % Plt Count 290 (160-400) X10*3/uL MPV 10.6 (9.4-12.3) fL Immature Gran % (Auto) 0.5 H (0.0-0.4) % Neut % (Auto) 71.5 (45-73) % Lymph % (Auto) 18.2 L (20-40) % Barber % (Auto) 8.9 (2-11) % Eos % (Auto) 0.5 (0-4) % Baso % (Auto) 0.4 (0-2) % Lymph # (Auto) 1.9 (1.2-4.9) X10*3/uL Barber # (Auto) 0.9 (0.1-1.2) X10*3/uL Eos # (Auto) 0.1 (0.0-0.4) X10*3/uL Baso # (Auto) 0.0 (0.0-0.2) X10*3/uL Abs Immat Gran (auto) 0.05 H (0.00-0.03) X10*3/uL Absolute Neuts (auto) 7.5 (2.0-8.3) x10*3/uL Absolute Nucleated RBC 0.000 (0.0-0.012) X10*3/uL Nucleated RBC % (auto) 0.0 (0.0-0.2) /100WBC Sodium 139 (135-145) mmol/L Potassium 4.0 (3.3-5.1) mmol/L Chloride 106 (96-108) mmol/L Carbon Dioxide 27 (22-29) mmol/L Anion Gap 10 L (12-20) BUN 13 (9-16) mg/dL Creatinine 0.63 (0.5-1.4) mg/dL Estim Creat Clear Calc 166.8 Estimated GFR > 60 Random Glucose 97 (60-115) mg/dL Calcium 9.4 (8.4-10.2) mg/dL Magnesium 1.9 (1.6-2.6) mg/dL Total Bilirubin 0.8 (0.0-1.0) mg/dL Direct Bilirubin 0.2 (0.0-0.5) mg/dL AST 22 (5-31) U/L ALT 16 (0-31) U/L Alkaline Phosphatase 116 (39-117) U/L Total Protein 7.6 (6.5-8.0) g/dL Albumin 4.2 (3.5-5.0) g/dL Lipase 12 (8-78) U/L Urine Color Yellow Yellow Urine Appearance Turbid Cloudy Urine pH 6.0 6.0 (5.0-9.0) Ur Specific [place] 1.020 1.020 (1.005-1.025) Urine Protein 100 (2+) H 100 (2+) H (Neg-Trace) mg/dL Urine Glucose (UA) Negative Negative (Negative) mg/dL Urine Ketones Negative Negative (Negative) mg/dL Urine Blood Large (3+) H Large (3+) H (Negative) Urine Nitrite Positive H Positive H (Negative) Ur Leukocyte Esterase Large (3+) H Large (3+) H (Negative) Urine RBC >20 H >20 H (0-2) /HPF Urine WBC >50 H >50 H (0-5) /HPF Ur Squamous Epith Cells 3-5 3-5 (0-2) /HPF Urine Bacteria 3+ 3+ (None Seen) Hyaline Casts 3-5 0-2 (0-2) /LPF Urine Test NEGATIVE (NEGATIVE) Independent Interpretation I performed an independent interpretation of an: Ultrasound Radiology Impression Discussion of test interpretation with radiology: I have reviewed the radiologist's reading. External Record Review External record reviewed: Inpatient record, Office record, Outpatient record, Prior outpatient labs, Prior outpatient radiology, Primary care record and Outside ED record Tests considered The following testing was considered but not selected: As above Prescription Management I considered prescription management with: Pain Medication Chronic Conditions Patient?s care impacted by: Other (Renal Stones) Discharge Plan Discharge Clinical Impression: UTI (urinary tract infection), Renal colic Patient Disposition: Home, Self-Care Instructions: Urinary Tract Infection in Women (DC), Renal Colic (ED) Additional Instructions: You have a urinary tract infection. Ceftin as an antibiotic please take as prescribed In addition you have a stone inside your right kidney, it is possible your passing or did pass a stone Toradol as an anti-inflammatory/pain medicine please take with food. In addition Flomax to help dilate your ureter Follow-up with urology If symptoms persist or worsen you of unbearable pain, fever, persistent nausea or vomiting return to the ED Prescriptions: New ketorolac 10 mg tablet 10 mg PO TID PRN (Reason: pain) 5 Days Qty: 15 0RF tamsulosin [Flomax] 0.4 mg capsule 0.4 mg PO DAILY Qty: 14 0RF cefuroxime axetil 250 mg tablet 250 mg PO BID 7 Days Qty: 14 0RF No Action Mirena 21 mcg/24 hours (8 yrs) 52 mg intrauterine device intrauterine Referrals: [facility] [place] [facility] [facility] [Provider Group] - 1 week Stand Alone Forms: Work/School Release Interventions: ED Discharge Assessment Last Done: 10/06/23 15:52 Discharge Date/Time: 10/06/23 15:53
[2023-10-06 10:32] LABS: Bacteria Urine 3+ (None Seen); RBC Urine >20 /HPF (0-2); UACC Culture Trigger YES; WBC Urine >50 /HPF (0-5)
[2023-10-06] MEDS: Ketorolac Tromethamine 15 MG/ML VIAL IVPUSH (11:08)
[2023-10-06 11:09] LABS: Appearance Urine Cloudy; Color Urine Yellow; Glucose Urine UA Negative (Negative); Leukocyte Esterase Urine Large (3+) (Negative); Nitrite Urine Positive (Negative); UMIC TRIGGER UACC YES; UPreg QC Valid YES; Urine Blood Large (3+) (Negative); Urine Ketones Negative (Negative); Urine Pregnancy NEGATIVE (NEGATIVE); Urine Protein 100 (2+) mg/dL (Neg-Trace)
[2023-10-06 11:11] LABS: Bacteria Urine 3+ (None Seen); Hyaline Casts Urine 0-2 /LPF (0-2); RBC Urine >20 /HPF (0-2); UACC Culture Trigger YES; WBC Urine >50 /HPF (0-5)
[2023-10-06] MEDS: 0.9 % Sodium Chloride 1,000 ML 999 ML IV (11:14)
[2023-10-06 11:19] LABS: MANUAL DIFF FLAG NO
[2023-10-06] MEDS: cefTRIAXone sodium 1 GM in 0.9 % Sodium Chloride 50 ML IV (11:20)
[2023-10-06 11:24] LABS: Basophils Percent Auto 0.4 % (0-2); Eosinophils Absolute Auto 0.1 X10*3/uL (0.0-0.4); Eosinophils Percent Auto 0.5 % (0-4); Hematocrit 38.1 % (37.0-47.0); Hemoglobin 12.7 g/dl (12.0-16.0); Imm Gran Abs Auto 0.05 X10*3/uL (0.00-0.03); Imm Gran Pct Auto 0.5 % (0.0-0.4); Lymphocytes Absolute Auto 1.9 X10*3/uL (1.2-4.9); Lymphocytes Percent Auto 18.2 % (20-40); Mean Corpuscular HGB Conc 33.3 g/dl (31.0-35.0); Mean Corpuscular Hemoglobin 29.9 pg (27.0-33.0); Mean Corpuscular Volume 89.6 fL (80.0-98.0); Mean Platelet Volume 10.6 fL (9.4-12.3); Monocytes Absolute Auto 0.9 X10*3/uL (0.1-1.2); Monocytes Percent Auto 8.9 % (2-11); Neutrophils Absolute Auto 7.5 x10*3/uL (2.0-8.3); Neutrophils Percent Auto 71.5 % (45-73); Platelet Count 290 X10*3/uL (160-400); Red Blood Count 4.25 X10*6/uL (4.20-5.50); Red Cell Distribution Width 11.9 % (11.0-16.0); White Blood Count 10.5 X10*3/uL (4.8-10.8)
[2023-10-06 11:53] LABS: Alanine Aminotransferase 16 U/L (0-31); Albumin Level 4.2 g/dL (3.5-5.0); Alkaline Phosphatase 116 U/L (39-117); Anion Gap 10 (12-20); Aspartate Amino Transferase 22 U/L (5-31); Bilirubin Direct 0.2 mg/dL (0.0-0.5); Bilirubin Total 0.8 mg/dL (0.0-1.0); Blood Urea Nitrogen 13 mg/dL (9-16); Calcium 9.4 mg/dL (8.4-10.2); Carbon Dioxide 27 mmol/L (22-29); Chloride 106 mmol/L (96-108); Creatinine Clr Calc Pharmacy 166.8; Estimated Glomerular Filt Rate > 60; Glucose Random 97 mg/dL (60-115); Lipase 12 U/L (8-78); Magnesium 1.9 mg/dL (1.6-2.6); Sodium 139 mmol/L (135-145); Total Protein 7.6 g/dL (6.5-8.0)
[2023-10-06] MEDS: Morphine Sulfate 2 MG/ML CARTRIDGE IVPUSH (13:37)
[2023-10-06] MEDS: iohexoL 350 MG/ML 100 ML INFUS..BTL IV (14:59)
== END 2023-10-06 15:53 | disposition home or self-care (01) ==
PROVIDERS: Physician Assistant; Emergency Provider Emergency Medicine; PCP Internal Medicine
DX: N39.0 Urinary tract infection, site not specified (principal); B96.20 Unspecified Escherichia coli [E. coli] as the cause of diseases classified elsewhere; N20.0 Calculus of kidney
CPT/HCPCS: 36415; 74177; 76705; 80048; 80076; 81001; 81025; 83690; 83735; 85025; 87086; 87088; 87186; 96361; 96374; 96375; 99284; J0696; J1885; J2270; Q9967

== ENCOUNTER 2023-11-19 12:53 | Outpatient (REF) | payer MEDICAID, SELFPAY | END 2023-11-19 12:54 | disposition home or self-care (01) | LOC: HO.LNP 12:53 | PROVIDERS: PCP Internal Medicine; Visit Provider Nurse Practitioner Family | DX: N20.0 Calculus of kidney (principal); N30.01 Acute cystitis with hematuria | CPT/HCPCS: 51798; 81003; 87086; 87088; 87186; 99212 ==

== ENCOUNTER 2023-11-19 12:53 | Outpatient (AMB) | payer MEDICAID, SELFPAY ==
--- NOTE | 2023-11-19 13:08 | A.OFFVIS_ITS ---
Intake Intake Visit Reasons: HX UTI and renal calculi Intake Note: New Patient presents for initial visit for uti and kidney stone Urology Medications: none Blood Thinner: none PVR: 25ml's Down Filler Required: No Accompanied by: Self / Same As Patient Allergies No Known Allergies Allergy (Verified 11/19/23 21:56) Medication List - Last Reconciled 11/19/23 by LITZY Horne levonorgestrel (Mirena) intrauterine nitrofurantoin macrocrystal 100 mg PO BID 10 days nitrofurantoin macrocrystal 50 mg PO .PRN 30 days HPI HPI Comments History of Present Illness Details Cookie is a very pleasant 33-year-old female patient of Dr. Marte. She has a past medical history of nephrolithiasis, obesity, scoliosis, and irritable bowel syndrome. She presents to the office today as a new patient for nephrolithiasis and recurrent urinary tract infections. In discussion with the patient today she reports having seeked emergency room care approximately 3 months ago for right-sided flank pain she had been experiencing at which time a CT of the abdomen was ordered and performed. These results were reviewed with the patient today. 3 mm nonobstructing right renal calculus. No hydronephrosis. She reports flank pain she had been experiencing has since subsided. When asked she does report a longstanding history of nephrolithiasis however never requiring surgical intervention. She reports noting herself to have had multiple urinary tract infections throughout her life however feels they have been more frequent over the last 6 months to 1 year. She reports feeling UTIs are associated with sexual intercourse. When asked she currently reports UTI like symptoms of dysuria and bladder pressure. She otherwise denies incontinence, nocturia, hematuria, dysuria, foul smelling urine, changes to urinary stream, flank pain, fever, and or chills. In office urinalysis results reviewed with the patient today. 3+ leukocytes negative nitrates. PVR 0 mL. Discussed at length potential causes of recurrent urinary tract infections. When asked she does report a longstanding history of constipation and bowel issues. She reports to be following up with GI here at [facility]. Discussed at length potential causes of nephrolithiasis. She otherwise offers no other issues or concerns at this time. [facility], LAT[facility] Medical History (Updated 11/19/23 @ 14:05 by LITZY Horne) Kidney stones Morbid obesity Cervical cancer screening Scoliosis IBS (irritable bowel syndrome) Surgical History Hx of section Family History Paternal Grandmother Hx of diabetes mellitus Social History Household Members: Significant Other and Children Both parents involved: Yes Housing: House Are you a primary anesthesiologist and critical care to a significant other at home: No Do you presently have visiting nurse or other home services: No 75 years or older and lives alone: No Alcohol intake: never Patient Tobacco Use Status: Never used Tobacco Special pito needs: No Agree to transfusion: Yes Female Reproductive History Menstrual Age of Menarche: 10 Review of Systems Const Reports no additional complaints Eyes Reports no additional complaints ENT Reports no additional complaints Card Reports as per HPI Resp Reports no additional complaints GI Reports as per HPI Reports as per HPI Musc Reports as per HPI Neuro Reports no additional complaints Psych Reports no additional complaints Endo Reports no additional complaints Shailesh/Lymph Reports no additional complaints Aller/Immun Reports no additional complaints Physical Exam Const General: cooperative, healthy appearing, comfortable, no acute distress, well developed, alert and awake Nutritional Appearance: overweight Orientation/consciousness: patient oriented x3 Limitations: no limitations HEENT Head: Yes normal to inspection, Yes normocephalic and Yes atraumatic Ears: hearing grossly normal bilaterally Eyes General: appearance normal, both eyes and all related structures Neck Neck: Yes normal visual inspection and Yes trachea midline Chest Chest palpation & inspection: normal inspection of the chest Resp Effort & Inspection: normal respiratory effort and able to speak in complete sentences Cardio Rate: regular rate GI Inspection: Yes normal to inspection General: Yes no CVA tenderness Back/Spine/Pelvis Back: no CVA tenderness Skin General skin exam: no rashes or lesions noted Neuro General: patient oriented x3 Extrem General: Yes normal to inspection Psych Appearance: grossly normal and well kempt Mental Status: mental status grossly normal Speech and movement: Normal speech and movement present and Clear speech present Affect: normal affect Attitude: cooperative Thought process: Normal thought process present Thought content: Normal thought content present Insight: Fair insight present (Psych) Judgement: Fair judgement present (Psych) Office Procedures Post Void Residual Post Residual Void Post Void Residual (PVR): 25 [id number] Void Residual by ultrasound Results AMB Urinalysis, Automated UA Leukoctes 500 Leti/uL Last Edit by VChargee Suzette on 11/19/23 14:28 UA Nitrite Negative Last Edit by VChargejennifer [employer] on 11/19/23 14:28 UA Urobilinogen 0.2 mg/dL Last Edit by VChargejennifer [employer] on 11/19/23 14:28 UA Protein 0 mg/dL Last Edit by [employer] on 11/19/23 14:28 UA pH 6.0 Last Edit by [employer] on 11/19/23 14:28 UA Blood 0 Kai/uL Last Edit by [employer] on 11/19/23 14:28 UA Specific [place] 1.015 Last Edit by [employer] on 11/19/23 14:28 UA Ketone Negative Last Edit by [employer] on 11/19/23 14:28 UA Bilirubin 0 mg/dL Last Edit by [employer] on 11/19/23 14:28 UA Glucose 0 mg/dL Last Edit by [employer] on 11/19/23 14:28 Results Reviewed Results Reviewed: Laboratory Last Values Urine pH (Auto) 6.0 11/19/23 13:21 Specific [place] (Auto) 1.015 11/19/23 13:21 Urine Protein (Auto) 0 mg/dL 11/19/23 13:21 Glucose (UA)(Auto) 0 mg/dL 11/19/23 13:21 Urine Ketones (Auto) Negative 11/19/23 13:21 Urine Blood (Auto) 0 Kai/uL 11/19/23 13:21 Urine Nitrite (Auto) Negative 11/19/23 13:21 Urine Bilirubin (Auto) 0 mg/dL 11/19/23 13:21 Urine Urobilinogen (Auto) 0.2 mg/dL 11/19/23 13:21 Leukocyte Esterase (Auto) 500 Leti/uL 11/19/23 13:21 Date of Service: 10/06/23 EXAMINATION: CT ABDOMEN AND PELVIS WITH CONTRAST FINDINGS: LUNG BASES: The visualized lung bases are unremarkable. LIVER, GALLBLADDER, AND BILIARY TREE: The liver is enlarged and decreased in attenuation. No focal hepatic lesion or biliary ductal dilatation is present. The gallbladder is unremarkable with no evidence of radiopaque gallstones, gallbladder wall thickening, or obvious pericholecystic inflammatory changes. PANCREAS: Unremarkable. SPLEEN: Unremarkable. ADRENAL GLANDS: Unremarkable. KIDNEYS AND URETERS: The kidneys are symmetric in size and enhancement. 3 mm nonobstructing midpole right renal calculus. No hydronephrosis or perinephric stranding. BLADDER: Underdistended. GASTROINTESTINAL TRACT: Small and large bowel loops are of normal caliber. Appendix is within normal limits. ABDOMINAL WALL: Small umbilical hernia containing fat. LYMPH NODES: No bulky lymphadenopathy. VASCULAR: Normal caliber abdominal aorta. PELVIC VISCERA: Intrauterine device in place. OSSEOUS STRUCTURES: No destructive bone lesions. IMPRESSION: Hepatomegaly and hepatic steatosis. 3 mm nonobstructing right renal calculus. No hydronephrosis. Assessment & Plan Assessment & Plan (1) Recurrent UTI: Code(s): N39.0 - Urinary tract infection, site not specified (2) Kidney stones: Code(s): N20.0 - Calculus of kidney (3) UTI (urinary tract infection): Code(s): N39.0 - Urinary tract infection, site not specified Qualifiers: Hematuria presence: with hematuria Urinary tract infection type: acute cystitis Qualified Code(s): N30.01 - Acute cystitis with hematuria Plan In office urinalysis results reviewed with the patient today; as noted above; will send for urine culture. PVR [address] results reviewed with the patient today; as noted above. Discussed further metabolic workup with 24 hour urine collection and labs; however patient declines at this time. Discussed at length potential causes of recurrent urinary tract infections. Prescription provided for postcoital treatment. Start Macrobid 100 mg daily as prescribed Discussed at length potential causes of nephrolithiasis. Discussed UTI prevention with D mannose supplement, vitamin-C, increasing fluid intake, behavioral therapy with timed voiding, perineal hygiene and postcoital voiding, and management of constipation with stool softeners and increased fiber intake. Will obtain retroperitoneal ultrasound in 3-4 months. Follow-up in 3-4 months with imaging to be completed prior; or sooner with any issues, concerns, and or questions. Orders: Orders AMB Urinalysis Automated Today Z13.9 - Encounter for screening, unspecified AMB Post Void Residual by ultrasound Today Z13.9 - Encounter for screening, unspecified US retroperitoneal comp 4 Months N20.0 - Calculus of kidney, N39.0 - Urinary tract infection, site not specified Urine Culture Today N39.0 - Urinary tract infection, site not specified Medications: New nitrofurantoin macrocrystal must administer with a meal/food 100 mg PO BID 10 days 20 caps 0RF N39.0 - Urinary tract infection, site not specified nitrofurantoin macrocrystal to be taken post-coital 50 mg PO .PRN 30 days 30 caps 3RF Patient Instructions: The patient had an opportunity to ask questions regarding the treatment plan. All questions were answered. Physical exam, labs, and imaging were discussed and reviewed in detail. As well as risks, benefits, and discussion of treatment choices. No major barriers to understanding were identified. The patient expressed understanding and agreement with the above treatment plan. The patient was made aware they should contact our office by phone for worsening of their current condition, the appearance of new symptoms, or with any questions or concerns. Compliance is encouraged with any medications and follow up testing that is ordered. It is a privilege to be allowed the opportunity to participate in? your urological care.? Again, if you have any questions or concerns If you have any questions or concerns please do not hesitate to contact me. The office is [phone]. This note is constructed using voice recognition software. While every effort has been made to ensure accuracy production recorder errors may have been included. Yours sincerely, MAU Horne Coding Level of Care Code New Pt Level 4 (17291) Diagnoses Recurrent UTI N39.0 Kidney stones N20.0 UTI (urinary tract infection) N30.01 Hematuria presence: with hematuria Urinary tract infection type: acute cystitis CPT Codes Post Residual Void - PVR CPT Code: 29829-Pxwp Void Residual by ultrasound ([id number])
== END 2023-11-19 14:34 | disposition home or self-care (01) ==
PROVIDERS: PCP Internal Medicine; Visit Provider Nurse Practitioner Family
DX: N39.0 Urinary tract infection, site not specified (principal); N20.0 Calculus of kidney; N30.01 Acute cystitis with hematuria
CPT/HCPCS: 99204

== ENCOUNTER 2023-11-25 09:57 | Outpatient (AMB) | payer MEDICAID, SELFPAY ==
--- NOTE | 2023-11-25 09:59 | A.OFFVIS_ITS ---
Intake Vital Signs 3 11/25/23 10:08 Height 5 ft 6 in Weight 272 lb BMI 43.9 BP 122/68 Blood Pressure Location Lt brachial Position Sitting Pulse 80 Intake Visit Reasons: Umbilical Hernia Intake Note: Patient is seen in office for evaluation and treatment of an umbilical hernia. Pt c/o: went to ED due to RUQ pain had imaging done and was told she has an umbilical hernia, thinks still might have been there since in 2021, painful at times, when exercising, denies any other concerns CT & US abd: 10/06/23 Customer Care Professional Required: No Accompanied by: Self / Same As Patient Allergies No Known Allergies Allergy (Verified 11/25/23 09:59) Medication List - Last Reconciled 11/25/23 by David Segundo MD levonorgestrel (Mirena) intrauterine nitrofurantoin macrocrystal 100 mg PO BID 10 days nitrofurantoin macrocrystal 50 mg PO .PRN 30 days HPI HPI Comments 2 History of Present Illness0 Details 33-year-old female patient presenting wi th complaints of pain in the umbilicus. She reports that this started approximately 2 years ago is increasing in severity. She feels it developed during her and seems to be associated with constipation. Denies nausea or vomiting. 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 A CT abdomen and pelvis confirmed an umbilical hernia. She is requested repair of this umbilical hernia. She has 2 children and lives on the 4th floor. [facility] Medical History Kidney stones Morbid obesity Cervical cancer screening Scoliosis IBS (irritable bowel syndrome) Surgical History Hx of section Family History Paternal Grandmother Hx of diabetes mellitus Social History Household Members: Significant Other and Children Both parents involved: Yes Housing: House Are you a primary care navigator to a significant other at home: No Do you presently have visiting nurse or other home services: No 75 years or older and lives alone: No Alcohol intake: never Patient Tobacco Use Status: Never used Tobacco Special pito needs: No Agree to transfusion: Yes Female Reproductive History Menstrual Age of Menarche: 10 Review of Systems Const All systems reviewed & are unremarkable except as noted in HPI and below Denies chills, Denies fever(s), Denies headache(s), Denies poor appetite and Denies weakness ENT Denies headache(s) Card Denies chest pain, Denies irregular heart rhythm, Denies palpitations and Denies dyspnea Resp Denies cough, Denies excessive phlegm production and Denies dyspnea GI Reports abdominal pain, Denies bloating, Denies change in bowel habits, Denies constipation, Denies heartburn, Denies diarrhea, Denies nausea and Denies vomiting Denies urinary frequency Musc Denies back pain, Denies muscle weakness and Denies numbness Skin/Breast Denies changing lesions and Denies unusual bruising Neuro Denies headache(s), Denies numbness, Denies paresthesias and Denies weakness Psych Denies anxiety and Denies depression Endo Denies palpitations Shailesh/Lymph Denies lymphadenopathy Physical Exam Const General: cooperative and no acute distress Nutritional Appearance: well nourished Orientation/consciousness: patient oriented x3 Limitations: no limitations HEENT Head: Yes normocephalic and Yes atraumatic Ears: hearing grossly normal bilaterally Resp Effort & Inspection: normal respiratory effort, no audible wheezes, no cough and no respiratory distress Cardio Jugular venous distension: no JVD GI Other: Palpable umbilical hernia noted with Valsalva maneuvers. Hernia does reduce with light pressure. Hernia measures approximately 2 cm in diameter. Inspection: Yes normal to inspection Abdomen image: 2 1. Hernia to the right of midline adjacent to umbilicus, 2 cm, reducible Skin Other: Warm, dry, no rash Neuro General: patient oriented x3 Extrem General: Yes no clubbing, cyanosis or edema Results Reviewed Results Reviewed: CT abdomen and pelvis: Assessment & Plan Assessment & Plan (1) Umbilical hernia: Code(s): K42.9 - Umbilical hernia without obstruction or gangrene Qualifiers: Obstruction and gangrene presence: without obstruction or gangrene Qualified Code(s): K42.9 - Umbilical hernia without obstruction or gangrene Plan 33-year-old female patient presenting with a 2 cm umbilical hernia which is reducible. Patient has requested repair and after discussion of the procedure, risks, and alternatives, consents to the repair of the umbilical hernia with mesh. Coding Level of Care Code New Pt Level 4 (60257) Diagnoses Umbilical hernia without obstruction and without gangrene K42.9 Obstruction and gangrene presence: without obstruction or gangrene
[2023-11-25 10:08] VITALS: BP 122/68; PULSE 80; BMI 43.9
== END 2023-11-25 10:46 | disposition home or self-care (01) ==
PROVIDERS: PCP Internal Medicine; Referring Provider Internal Medicine; Visit Provider Surgery
DX: K42.9 Umbilical hernia without obstruction or gangrene (principal)
CPT/HCPCS: 99204

== ENCOUNTER → 2023-11-25 09:57 | Outpatient (BNVA) | payer MEDICAID, SELFPAY | PROVIDERS: PCP Internal Medicine; Referring Provider Internal Medicine; Visit Provider Surgery | DX: K42.9 Umbilical hernia without obstruction or gangrene (principal) | CPT/HCPCS: 99202 ==

== ENCOUNTER 2024-01-07 07:14 | Day surgery (SDC) | payer MEDICAID, SELFPAY ==
[2024-01-05 08:11] VITALS: BMI 43.9
--- NOTE | 2024-01-05 13:34 | HO.ANESPROP2 ---
Documented by User: Lilia Seo NP 01/05/24 13:39 HPI - Anesthesia Eval Consult details Narrative: 33yo F for Hernia Umbilical Reducible Repair with Mesh PMFSH Active Problems Active Problems: All Active Problems Umbilical hernia (Acute) Recurrent UTI (Acute) Kidney stones (Acute) Parvovirus exposure (Acute) Obesity, morbid, BMI 40.0-49.9 (Acute) Yeast infection of the vagina (Acute) Missed menses (Acute) Hemorrhoid (Acute) Lactose intolerance (Acute) Past Medical History Medical History (Updated 01/07/24 @ 07:21 by Ana Mejia RN) Fatty liver Kidney stones Morbid obesity Cervical cancer screening Scoliosis IBS (irritable bowel syndrome) Family History Family History Paternal Grandmother Hx of diabetes mellitus Surgical History Surgical History (Updated 01/07/24 @ 07:22 by Ana Mejia RN) History of surgery on upper extremity Hx of section Social History Social History Household Members: Significant Other and Children Housing: House Are you a primary senior care manager to a significant other at home: No Do you presently have visiting nurse or other home services: No Alcohol intake: never Patient Tobacco Use Status: Never used Tobacco Use of substances other than those prescribed or required for medical reasons: No Special pito needs: No Agree to transfusion: Yes Are you DNR?: No Advance Directives: No Advance Directives Information Provided: Yes Meds Allergies Allergy/AdvReac Type Severity Reaction Status Date / Time No Known Allergies Allergy Verified 01/07/24 07:22 Home Medications ?Medication ?Instructions ?Recorded ?Confirmed ?Last Taken ?Type levonorgestrel 21 mcg/24 hours (8 intrauterine 03/28/23 11/25/23 Unknown History yrs) 52 mg intrauterine device (Mirena) Exam Height,Weight and Vital Signs: Height 5 ft 6 in Weight 123.377 kg Pertinent Lab Results Pertinent Lab Results: Laboratory Tests 10/06/23 11:14 WBC 10.5 Hgb 12.7 Hct 38.1 Plt Count 290 Sodium 139 Potassium 4.0 Chloride 106 Carbon Dioxide 27 BUN 13 Creatinine 0.63 Assessment and Plan Assessment Anesthesia Assessment: Chart Reviewed Documented by User: Amanda Melgar MD 01/07/24 08:17 PMFSH Past Medical History Medical History (Updated 01/07/24 @ 07:21 by Ana Mejia, RN) Fatty liver Kidney stones Morbid obesity Cervical cancer screening Scoliosis IBS (irritable bowel syndrome) Family History Family History Paternal Grandmother Hx of diabetes mellitus Family history of problems with anesthesia: No Surgical History Surgical History (Updated 01/07/24 @ 07:22 by Ana Mejia, LEXI) History of surgery on upper extremity Hx of section History of Problems with Anesthesia: No Social History Social History Household Members: Significant Other and Children Housing: House Are you a primary senior care manager to a significant other at home: No Do you presently have visiting nurse or other home services: No Alcohol intake: never Patient Tobacco Use Status: Never used Tobacco Use of substances other than those prescribed or required for medical reasons: No Special pito needs: No Agree to transfusion: Yes Are you DNR?: No Advance Directives: No Advance Directives Information Provided: Yes Meds Allergies Allergy/AdvReac Type Severity Reaction Status Date / Time No Known Allergies Allergy Verified 01/07/24 07:22 Home Medications ?Medication ?Instructions ?Recorded ?Confirmed ?Last Taken ?Type levonorgestrel 21 mcg/24 hours (8 intrauterine 03/28/23 11/25/23 Unknown History yrs) 52 mg intrauterine device (Mirena) Exam Airway Mallampati Class: II (missing a couple, denies any loose) TM Dist: >3cm Neck ROM: Full Heart: rrr Lungs: cta Assessment and Plan Assessment Anesthesia Assessment: Anesthesia Plan Discussed Final Anesthetic Review Family History of Problems with Anesthesia: No History of Problems with Anesthesia: No NPO: Yes ASA Class: III Final Preanesthetic Review: No Changes in Pt Med Stat, Meds/Allgs Chart Reviewed and Consent Obtained/Reviewed Patient Risk: Intermediate Procedure Risk: Low Anesthetic Plan Anesthetic Plan: GA Disposition: Standard PACU
[2024-01-07] VITALS (7 sets, daily range): BP systolic 113–134; BP diastolic 59–87; PULSE 70–92; RESP 14–16; TEMP 36.2–36.4; O2SAT 95–97; BMI 44.5
[2024-01-07 07:59] LABS: UPreg QC Valid YES; Urine Pregnancy NEGATIVE (NEGATIVE)
[2024-01-07] MEDS: Lactated Ringers 1,000 ML 100 ML IVCONT (08:04)
--- NOTE | 2024-01-07 08:19 | MHC.SHP ---
Pre-Procedural Eval Section A - 24 Hr Update-Section A only Date of Service: 01/07/24 The patient is an INPATIENT: No Changes since office visit: Yes Patient answered all questions; No Cold of Flu in the past 2 weeks, No New Medical Problems and No Changes in Medication The patient has been examined within 24 hours of the surgical procedure. The History & Physical has been completed within 30 days and I have reviewed it.: No Section B - Complete if H&P > 30 days Chief Complaint: Umbilical hernia without obstruction or gangrene Details of Present Illness: No significant change in symptoms since her last visit. Relevant Family History (Specify if Yes): No Relevant Social History: None Present Medications: see Short Stay Collaborative assessment Medical History: No relevant PMH History of Previous Operations: No relevant previous surgery Allergies: Allergies Allergy/AdvReac Type Severity Reaction Status Date / Time No Known Allergies Allergy Verified 01/07/24 07:22 Review of Systems Sugical H&P ROS: Negative: Constitution, Cardiovascular, Respiratory, Neurological, Psychiatric, Hem-Onc, Allergic/Immunologic, Gastrointestinal, Genitourinary, Musculoskeletal, Integumentary, Endocrine and Eyes/Ears/Nose/Throat Exam Surgical H&P Exam: Normal: HEENT, Normal: Heart, Normal: Lungs, Normal: Extremities, Normal: Skin and Normal: Neurological and Significant Findings: Abdomen (Umbilical hernia, reducible, 2 cm diameter.) Plan Diagnosis/Plan: Unchanged I have reviewed the history and physical and performed a pertinent physical examination on my patient. No changes have occurred unless specified. Time Spent With Patient Time: Total time managing care of this patient today ____ minutes.
--- NOTE | 2024-01-07 09:30 | W.PM.OPN ---
Operative Note Operative Note Date of Service: 01/07/24 Narrative: Preoperative diagnosis: Umbilical hernia, reducible, 2 cm Postoperative diagnosis:same Procedure:Umbilical hernia repair with mesh Surgeon: David Segundo MD Building Construction Inspector: Andreina Dobbs PA-C, GET [facility] Anesthesia: General LMA Indications for procedure: 33-year-old female patient presenting with a palpable hernia in the umbilicus which is causing increased discomfort. CT abdomen and pelvis confirmed to adjacent hernias around the umbilicus measuring approximately 2 cm in diameter. On examination the hernia is palpable and increases in size with Valsalva maneuvers. The hernia does reduce with light pressure. Operative findings: 2 cm umbilical hernia defect. This was repaired using a 6.4 cm round Ventralex mesh. Specimen:none Estimated blood loss: 5 mls Complications: none Procedure details: Patient was brought to the OR and placed in a supine position. After administering general anesthesia the patient's abdomen was prepped with ChloraPrep and draped in a sterile fashion. A surgical time-out was called the consent confirmed. Patient received preoperative antibiotics and Venodyne boots were in place. Local anesthesia was then infiltrated below the umbilicus in a transverse fashion. An incision was then made in a curvilinear fashion below the umbilicus oriented transversely. This was carried out through subcutaneous tissue and up to the hernia sac. Fair amount of scar tissue was encountered around the umbilicus. This was bluntly dissected using a hemostat. Hemostasis was assured using electrocautery. The hernia site defect was then dissected down to the fascial defect. Two hernias were identified with a small bridge between. This was combined into 1 hernia which in total measured approximately 2 cm in diameter. A preperitoneal space was then created below the fascia using a combination of sharp and blunt dissection. A 6.4 cm Ventralex mesh was then obtained and deployed within the preperitoneal space. This was then secured in 4 quadrants using the 0 Tycron suture. Fascia was then closed over the mesh using [id number] 0 Tycron sutures. Wounds were irrigated with saline solution and suctioned dry. Dermis was then reapproximated using interrupted 3-0 Polysorb sutures. Skin was closed using a running subcuticular 4-0 Polysorb suture. Steri-Strips, 2 x 2 gauze and Tegaderm were then applied. The patient tolerated the procedure well. Sponge, instrument, and needle counts reported as correct. The patient was transferred to PACU in stable condition.
[2024-01-07] MEDS: Acetaminophen 1,000 MG/100 ML PIGGYBACK 400 MG IV (09:40)
[2024-01-07] MEDS: oxyCODONE HCl Immed Release 5 MG TABLET PO (09:40)
== END 2024-01-07 11:34 | disposition home or self-care (01) ==
PROVIDERS: Nurse Practitioner; PCP Internal Medicine; Visit Provider Surgery
PROC: (CPT 49591; principal; 2024-01-07 08:40)
DX: K42.9 Umbilical hernia without obstruction or gangrene (principal); K58.9 Irritable bowel syndrome, unspecified; K76.0 Fatty (change of) liver, not elsewhere classified; N20.0 Calculus of kidney; M41.9 Scoliosis, unspecified; E66.01 Morbid (severe) obesity due to excess calories; Z68.41 Body mass index [BMI] 40.0-44.9, adult; Z79.899 Other long term (current) drug therapy
CPT/HCPCS: 49591; 81025; C1781; C9088; J0131; J0665; J0690; J1100; J2250; J2405; J2704; J3010

== ENCOUNTER → 2024-01-07 07:14 | Outpatient (BNV) | payer MEDICAID, SELFPAY | PROVIDERS: PCP Internal Medicine; Visit Provider Surgery | DX: K42.9 Umbilical hernia without obstruction or gangrene (principal) | CPT/HCPCS: 49591 ==

== ENCOUNTER 2024-01-16 10:56 | Outpatient (AMB) | payer MEDICAID, SELFPAY ==
--- NOTE | 2024-01-16 10:57 | MHC.OFFVIS ---
Vital Signs 01/16/24 11:04 Height 5 ft 6 in Weight 273 lb 4 oz BMI 44.1 BP 119/70 Blood Pressure Location Lt brachial Position Sitting Pulse 95 Intake Visit Reasons: S/P umbilical hernia w/mesh Intake Note: Patient is seen in office for post op assessment post umbilical hernia repair. Pt c/o: admits to constipation, no bm for 2 days post surgery, did go after, however is constipated again, would like some stool softener, some nausea, incision healing well Train Reservation Clerk Required: No Accompanied by: Self / Same As Patient Allergies No Known Allergies Allergy (Verified 01/16/24 11:04) Medication List - Last Reconciled 01/16/24 by David Segundo MD docusate sodium (Colace) 100 mg PO DAILY levonorgestrel (Mirena) intrauterine nitrofurantoin macrocrystal 100 mg PO BID 10 days nitrofurantoin macrocrystal 50 mg PO .PRN 30 days HPI Comments Details: 33-year-old female patient returning 1 week following repair of an umbilical hernia with mesh performed on 01/07/2024 using a 6.4 cm round Ventralex mesh. She tolerated the procedure well but does complain of constipation postoperatively. She denies any nausea or vomiting. [facility] Medical History (Updated 01/16/24 @ 11:05 by David Segundo MD) Fatty liver Kidney stones Morbid obesity Cervical cancer screening Scoliosis IBS (irritable bowel syndrome) Surgical History (Updated 01/07/24 @ 07:22 by Ana Mejia RN) History of surgery on upper extremity Hx of section Family History Paternal Grandmother Hx of diabetes mellitus Social History Household Members: Significant Other and Children Both parents involved: Yes Housing: House Are you a primary long term care social worker to a significant other at home: No Do you presently have visiting nurse or other home services: No 75 years or older and lives alone: No Alcohol intake: never Patient Tobacco Use Status: Never used Tobacco Special pito needs: No Agree to transfusion: Yes Female Reproductive History Menstrual Age of Menarche: 10 Physical Exam Const General: no acute distress Nutritional Appearance: well nourished Resp Effort & Inspection: normal respiratory effort GI Other: Dressings removed, wounds clean, dry and intact. No erythema or discharge appreciated. No hernia noted. Extrem Other: No edema Assessment & Plan Assessment & Plan (1) Umbilical hernia: Code(s): K42.9 - Umbilical hernia without obstruction or gangrene Category: Medical Qualifiers: Obstruction and gangrene presence: without obstruction or gangrene Qualified Code(s): K42.9 - Umbilical hernia without obstruction or gangrene (2) Constipation: Code(s): K59.00 - Constipation, unspecified Category: Medical Plan 33-year-old female patient status post repair of an umbilical hernia with mesh. She tolerated the procedure well the wounds are healing nicely. She should continue to avoid lifting greater than 10 lb and should return in 1 month for follow-up examination. Colace prescribed for constipation. Medications: New docusate sodium (Colace) 100 mg PO DAILY 30 caps 0RF K42.9 - Umbilical hernia without obstruction or gangrene, K59.00 - Constipation, unspecified Coding Level of Care Code Global (74630) Diagnoses Umbilical hernia without obstruction and without gangrene K42.9 Obstruction and gangrene presence: without obstruction or gangrene Constipation K59.00
[2024-01-16 11:04] VITALS: BP 119/70; PULSE 95; BMI 44.1
== END 2024-01-16 11:07 | disposition home or self-care (01) ==
PROVIDERS: PCP Internal Medicine; Visit Provider Surgery
DX: K42.9 Umbilical hernia without obstruction or gangrene (principal); K59.00 Constipation, unspecified
CPT/HCPCS: 99212

== ENCOUNTER → 2024-01-16 10:56 | Outpatient (BNVA) | payer MEDICAID, SELFPAY | PROVIDERS: PCP Internal Medicine; Visit Provider Surgery | DX: Z48.815 Encounter for surgical aftercare following surgery on the digestive system (principal); K59.00 Constipation, unspecified | CPT/HCPCS: 99212 ==

== ENCOUNTER 2024-02-17 10:49 | Outpatient (AMB) | payer MEDICAID, SELFPAY ==
[2024-02-17 10:58] VITALS: BP 131/75; PULSE 75; BMI 45.2
--- NOTE | 2024-02-17 10:58 | MHC.OFFVIS ---
Vital Signs 02/17/24 10:58 Height 5 ft 6 in Weight 280 lb BMI 45.2 BP 131/75 Blood Pressure Location Lt brachial Position Sitting Pulse 75 Intake Visit Reasons: 1 mth follow up umbilical hernia w/mesh Intake Note: Patient is seen in office for one month follow up visit, post umbilical hernia repair. Pt c/o: dneies any concerns healing as expected Director Instrumentation Required: No Accompanied by: Self / Same As Patient Allergies No Known Allergies Allergy (Verified 02/17/24 10:59) HPI Comments Details: 33-year-old female patient returning 1 month following repair of an umbilical hernia with mesh. Reports some discomfort located in the left lower quadrant lateral to the umbilicus. She denies any bleeding or discharge from the incision. Denies any pain at the umbilicus. [facility] Medical History (Updated 01/16/24 @ 11:05 by David Segundo MD) Fatty liver Kidney stones Morbid obesity Cervical cancer screening Scoliosis IBS (irritable bowel syndrome) Surgical History History of surgery on upper extremity Hx of section Family History Paternal Grandmother Hx of diabetes mellitus Social History Household Members: Significant Other and Children Both parents involved: Yes Housing: House Are you a primary rn medicare to a significant other at home: No Do you presently have visiting nurse or other home services: No 75 years or older and lives alone: No Alcohol intake: never Patient Tobacco Use Status: Never used Tobacco Special pito needs: No Agree to transfusion: Yes Female Reproductive History Menstrual Age of Menarche: 10 Physical Exam Vital Signs: Last Vital Signs Pulse 75 02/17/24 10:58 BP 131/75 02/17/24 10:58 BMI result Body Mass Index 45.2 Const General: no acute distress Nutritional Appearance: well nourished Orientation/consciousness: patient oriented x3 Resp Effort & Inspection: normal respiratory effort GI Other: Soft, obese abdomen, well-healed umbilical incision with no changes noted with Valsalva maneuvers. Tenderness mainly in the margin of the rectus muscle left side. No palpable mass appreciated other than normal muscle. Neuro General: patient oriented x3 Extrem General: Yes no clubbing, cyanosis or edema Assessment & Plan Assessment & Plan (1) Umbilical hernia: Code(s): K42.9 - Umbilical hernia without obstruction or gangrene Category: Medical Qualifiers: Obstruction and gangrene presence: without obstruction or gangrene Qualified Code(s): K42.9 - Umbilical hernia without obstruction or gangrene Plan 33-year-old female patient returning 1 month following repair of an umbilical hernia with mesh. Her wounds are clean, dry, and intact without evidence of hernia recurrence. She may resume normal activity without restrictions and should follow up as needed. Coding Level of Care Code Global (24287) Diagnoses Umbilical hernia without obstruction and without gangrene K42.9 Obstruction and gangrene presence: without obstruction or gangrene
== END 2024-02-17 11:12 | disposition home or self-care (01) ==
PROVIDERS: PCP Internal Medicine; Visit Provider Surgery
DX: K42.9 Umbilical hernia without obstruction or gangrene (principal)
CPT/HCPCS: 99212

== ENCOUNTER → 2024-02-17 10:49 | Outpatient (BNVA) | payer MEDICAID, SELFPAY | PROVIDERS: PCP Internal Medicine; Visit Provider Surgery | DX: Z09 Encounter for follow-up examination after completed treatment for conditions other than malignant neoplasm (principal); Z87.19 Personal history of other diseases of the digestive system | CPT/HCPCS: 99212 ==

== ENCOUNTER 2024-10-31 14:08 | Emergency (ER) | payer MEDICAID, SELFPAY ==
--- NOTE | ~2024-10-31 | XR_ITS ---
CLINICAL HISTORY: r o FB lac 3 view right hand Comparison: CR - HAND RIGHT [id number] - 03/10/10 16:15 EDT Findings: The prior x-ray reports are not available for review. No fractures or dislocations. No significant loss of joint space or osteophytes. 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 No erosions. No radiopaque foreign body. There is soft tissue edema of the index finger. Small radiopaque density adjacent to the PIP joint of the index finger is unchanged. IMPRESSION: No evidence of radiopaque foreign body. This document has been electronically signed by: Marta Lopez MD on 10/31/2024 15:44:13
[2024-10-31 14:11] VITALS: BP 131/83; PULSE 94; RESP 16; TEMP 36.1; O2SAT 98; BMI 43.5
--- NOTE | 2024-10-31 14:12 | ED_ITS ---
HPI - Wound/Laceration General Chief Complaint: Extremity Injury, Upper Stated Complaint: laceration r hand Time Seen by Provider: 10/31/24 14:26 Source: patient Mode of arrival: ambulatory Limitations: no limitations History of Present Illness ED Provider: AVIS GUAJARDO PA-C HPI narrative: 34-year-old right hand dominant female with no significant past medical history presents to the ED today for evaluation of right hand laceration sustained prior to arrival in ED. Patient states that she was washing dishes when a glass broke, cutting right index finger and right thumb. Presents with lacerations actively bleeding. She is not on anticoagulation. Tdap updated in 2021. She is unsure if there is any retained glass in her lacerations. Related Data Home Medications ?Medication ?Instructions ?Recorded ?Confirmed levonorgestrel 21 mcg/24 hr (up to intrauterine 03/28/23 01/16/24 8 years) 52 mg intrauterine device (Mirena) Previous Rx's ?Medication ?Instructions ?Recorded nitrofurantoin macrocrystal 100 mg 100 mg PO BID 10 days #20 caps 11/19/23 capsule nitrofurantoin macrocrystal 50 mg 50 mg PO .PRN 30 days #30 caps 11/19/23 capsule docusate sodium 100 mg capsule 100 mg PO DAILY #30 caps 01/16/24 (Colace) amoxicillin 875 mg-potassium 1 tab PO BID 7 days #14 tabs 10/31/24 clavulanate 125 mg tablet bacitracin 500 unit/gram topical 1 appl topical DAILY #28 grams 10/31/24 ointment Allergies Allergy/AdvReac Type Severity Reaction Status Date / Time No Known Allergies Allergy Verified 10/31/24 14:14 Review of Systems Review of Systems: Constitutional: No fever, chills, fatigue, night sweats, weight changes ENT/Mouth: No ear pain, hearing loss, nasal congestion, sinus pain, rhinorrhea, sore throat Eyes: No eye pain, swelling, redness, vision changes, discharge Cardio: No chest pain, palpitations, TEMPLE, orthopnea, peripheral edema Pulm: No SOB, cough, sputum, wheezing, dyspnea, hemoptysis GI: No nausea, vomiting, hematemesis, abdominal pain, diarrhea, constipation, hematochezia, melena : No irregular bleeding, dysuria, frequency, urgency, hesitancy, hematuria, flank pain, urinary flow changes, urinary incontinence or retention MSK: No back pain, neck pain, joint pain, myalgias Skin: No lesions, rashes, +right hand lacerations Neuro: No weakness, numbness, paresthesias, LOC, dizziness, headache Psych: No anxiety/panic, depression, SI/HI, AH/VH All other systems reviewed and are negative. [facility] Past Medical History Attestation statement: The following information was validated with the patient. Source: old records reviewed and nursing notes reviewed Medical History Fatty liver Kidney stones Morbid obesity Cervical cancer screening Scoliosis IBS (irritable bowel syndrome) Surgical History History of surgery on upper extremity Hx of section Family History Family History Paternal Grandmother Hx of diabetes mellitus Social History Social History Household Members: Significant Other and Children Housing: House Are you a primary director of managed care to a significant other at home: No Do you presently have visiting nurse or other home services: No Alcohol intake: never Patient Tobacco Use Status: Never used Tobacco Special pito needs: No Agree to transfusion: Yes Advance Directives: No Advance Directives Information Provided: No Physical Exam Vital Signs: Vital Signs: Last Vital Signs Temp 97 F 10/31/24 16:47 Pulse 94 10/31/24 16:47 Resp 16 10/31/24 16:47 BP 131/83 10/31/24 16:47 Pulse Ox 98 10/31/24 16:47 O2 Del Method Room Air 10/31/24 16:47 BMI result Body Mass Index 43.5 vital signs stable General: Well appearing, in no acute distress. Skin: +right 2nd digit w/ superficial v shaped laceration to dorsal aspect just distal to 2nd mcp. noted coagulated blood. Head: Normocephalic, atraumatic. EENT: Hearing is intact b/l. Conjunctiva clear. PERRLA. EOM intact. Moist mucous membranes.? Cardiac: Chest wall symmetric. RRR Lungs: Normal respiratory effort without accessory muscle use Ext: +finger strength intact. FROM intact to right 2nd MCP, PIP, DIP w/ pain on flexion of MCP. finger to thumb opposition intact. sensation somewhat diminished primarily around laceration. 2+ radial/ulnar pulse intact. Neuro: AOx3. Normal speech. Ambulating with steady gait. Course Course Course Narrative: This is a Rapid Medical Exam performed in triage by Adwoa Kent PA-C. Full HPI, ROS and PE to be performed by primary ED provider. 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 Unknown retained FB. Vaccinations UTD. denies AC use. +numbness PE: +actively bleeding V shaped laceration to L index finger. +smaller lacs to L thumb Plan: XR, suture repair Reevaluation(s) Reevaluation #1: X-ray right hand does not demonstrate any retained foreign body. I thoroughly evaluated laceration to right index finger. Laceration was irrigated extensively. I do not appreciate any retained foreign body. Following digital block, laceration was repaired with 5 4-0 sutures. advised to return in 7-10 days for suture removal. will place patient on course of augmentin. her ligaments/tendons appear intact on exam however patient reports slight numbness to finger. advised her to follow up with hand surgeon outpatient. will contact their office tomorrow morning. Patient has remained stable throughout ED visit today. Discussed worrisome signs and symptoms and when to return to the ED. All questions answered at this time. Patient is agreeable with disposition and stable for discharge. Medications Administered Discontinued Medications Generic Name Dose Route Start Last Admin Trade Name Freq PRN Reason Stop Dose Admin Lidocaine HCl 5 ml 10/31/24 14:17 10/31/24 14:26 Lidocaine Hcl 1 % Mpf 5 Ml Vial INFILTRATI 10/31/24 14:18 5 ml ONCE ONE Administration Medical Decision Making Medical Decision Making MDM Narrative: 34-year-old right hand dominant female with no significant past medical history presents to the ED today for evaluation of right hand laceration sustained prior to arrival in ED. vital signs stable. she is nontoxic appearing and in NAD. on exam, right 2nd digit w/ superficial v shaped laceration to dorsal aspect just distal to 2nd mcp. noted coagulated blood. finger strength intact. FROM intact to right 2nd MCP, PIP, DIP w/ pain on flexion of MCP. finger to thumb opposition intact. sensation somewhat diminished primarily around laceration. 2+ radial/ulnar pulse intact. Differential diagnosis includes abrasion, laceration, retained FB. lower suspicion for ligament/tendon injury, fracture, subluxation. Plan for xr, laceration repair. Differential Diagnosis Differential Diagnoses: The differential diagnosis associated with the presentation includes as above Admission/Observation not indicated Independent Interpretation I performed an independent interpretation of an: Plain X-Ray Interpretation: xr right hand without fb or fracture Radiology Impression Discussion of test interpretation with radiology: I have reviewed the radiologist's reading. Radiologist Impression: Procedure(s): XR hand RT min 3V Accession Number(s): [id number] cc: Alyce Marte MD; Adwoa Kent~ CLINICAL HISTORY: r o FB lac 3 view right hand Comparison: CR - HAND RIGHT [id number] - 03/10/10 16:15 EDT Findings: The prior x-ray reports are not available for review. No fractures or dislocations. No significant loss of joint space or osteophytes. 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 No erosions. No radiopaque foreign body. There is soft tissue edema of the index finger. Small radiopaque density adjacent to the PIP joint of the index finger is unchanged. IMPRESSION: No evidence of radiopaque foreign body. This document has been electronically signed by: Marta Lopez MD on 10/31/2024 15:44:13 External Record Review External record reviewed: Inpatient record Prescription Management I considered prescription management with: Pain Medication and Antibiotic (keflex) Social Determinants Patient?s care significantly limited by Social Determinants of Health including: Other Social Determinant of Health Procedures Laceration Laceration 1: Site: hand Side (If applicable): right Size (cm): 2.5 Description: irregular Depth: simple, single layer Local Anesthetic: lidocaine 1% Amount of anesthesia used (mL): 5 Pre-repair: wound explored, irrigated extensively and deep structures intact Skin layer closed with: nylon Size (cm): 4-0 Number of sutures: 5 Technique: simple, interrupted Nerve Block Nerve Block 1: Time out performed: Yes Local Anesthetic: lidocaine 1% Amount of anesthesia used (mL): 5 Side: left Nerve Blocks: digital Procedure Successful: Yes Patient Tolerated Procedure: well Complications: none Critical Care Time Critical Care Time Critical Care Time: No Discharge Plan Discharge Clinical Impression: Laceration of index finger Qualifiers: Encounter type: initial encounter Damage to nail status: without damage Foreign body presence: without foreign body Laterality: right Qualified Code(s): S61.210A - Laceration without foreign body of right index finger without damage to nail, initial encounter Patient Disposition: Home, Self-Care Instructions: Care For Your Stitches (ED), Laceration (ED) Additional Instructions: You have been evaluated in the Emergency Department today for a laceration to your right index finger. Your laceration was repaired in the ED with a total of 5 sutures.? Please keep the area surrounding the laceration clean and dry. Please keep the area out of the sunlight for the next 6 months to help prevent scarring.? If you develop redness or swelling at the site of your laceration please come back to the ER for a wound check. I recommend you take 600mg ibuprofen every 6 hours or tylenol 650mg every 6 hours as needed for pain. If needed, you can alternate these medications so that you take one medication every 3 hours. For example, at noon take ibuprofen, then at 3pm take tylenol, then at 6pm take ibuprofen. Please follow up with your primary care physician in 7-10 days for suture removal. You can also return to the ER or another urgent care facility for this service. As discussed, I would like you to follow up with the hand surgeon (Dr. Brown) this week. You have been provided with their number, call their office tomorrow morning to make an appointment. They will not call you. Return to the Emergency Department if you experience discharge from your la ceration, redness around your laceration, warmth around your laceration, fever, vomiting, numbness, tingling, or any other concerning symptoms. In the case of an emergency call 911. Prescriptions: New bacitracin 500 unit/gram ointment 1 appl topical DAILY Qty: 28 0RF amoxicillin-pot clavulanate 875-125 mg tablet 1 tab PO BID 7 Days Qty: 14 0RF No Action Mirena 21 mcg/24 hours (8 yrs) 52 mg intrauterine device intrauterine nitrofurantoin macrocrystal 100 mg capsule 100 mg PO BID 10 Days Qty: 20 0RF Rx Instructions: must administer with a meal/food nitrofurantoin macrocrystal 50 mg capsule 50 mg PO .PRN 30 Days Qty: 30 3RF Rx Instructions: to be taken post-coital docusate sodium [Colace] 100 mg capsule 100 mg PO DAILY Qty: 30 0RF Referrals: Alyce Marte MD [Primary Care Provider] - Ashlyn Brown MD [Physician] - 3 days (right index finger laceration) Stand Alone Forms: Work/School Release Interventions: ED Discharge Assessment Last Done: 10/31/24 16:47 Discharge Date/Time: 10/31/24 16:47 Print Language: Swiss
[2024-10-31] MEDS: Lidocaine HCl 1 % MPF 5 ML VIAL INFILTRATI (14:26)
[2024-10-31 16:47] VITALS: BP 131/83; PULSE 94; RESP 16; TEMP 36.1; O2SAT 98
== END 2024-10-31 16:47 | disposition home or self-care (01) ==
PROVIDERS: Emergency Provider Emergency Medicine; PCP Internal Medicine
DX: S61.210A Laceration without foreign body of right index finger without damage to nail, initial encounter (principal); M79.641 Pain in right hand; W25.XXXA Contact with sharp glass, initial encounter; Y93.E9 Activity, other interior property and clothing maintenance; Y92.000 Kitchen of unspecified non-institutional (private) residence as the place of occurrence of the external cause; Y99.8 Other external cause status
CPT/HCPCS: 12041; 73130; 99282; 99284; J2003

== ENCOUNTER → 2024-10-31 14:17 | Outpatient (BNV) | payer MEDICAID, SELFPAY | PROVIDERS: Emergency Provider Emergency Medicine; PCP Internal Medicine; Visit Provider Nuclear Medicine | DX: S61.401A Unspecified open wound of right hand, initial encounter (principal) | CPT/HCPCS: 73130 ==

== ENCOUNTER 2024-11-10 09:58 | Outpatient (AMB) | payer MEDICAID, SELFPAY ==
[2024-11-10 10:18] VITALS: BMI 43.4
--- NOTE | 2024-11-10 10:18 | MHC.OFFVIS ---
Vital Signs 11/10/24 10:18 Height 5 ft 6 in Weight 269 lb BMI 43.4 Intake Visit Reasons: FC-Laceration of index finger-DOI 10/31/24 Intake Note: Cookie 34 yr old right hand dominant female presents today as a new patient for a evaluation of right hand laceration sustained on 10/31/24. Patient states that she was washing dishes when a glass broke, cutting right index finger and right thumb. [place] [facility] [place], laceration was cleaned, sutured and wrapped. Currently states she has limited ROM, numbness on laceration and swelling. She is not able to fully straighten out her finger. Denies numbness, tingling or locking of any finger. States she has finished taking her ABX. States she has returned to work with regular duty. Allergies No Known Allergies Allergy (Verified 11/10/24 10:22) HPI HPI FC-Laceration of index finger-DOI 10/31/24: Details: Cookie is a 34 year old right hand dominant woman who presents for a right index finger laceration, from broken glass while washing dishes, DOI: 10/31/24. She was seen in the ED where this was cleaned & sutured, and given a course of Abx. She complains of swelling & limited ROM of her finger. She also reports some numbness at her laceration site. She denies any other numbness, tingling, locking, or catching. She has completed her course of Abx. She has returned to work on regular duty. [facility] Medical History Fatty liver Kidney stones Morbid obesity Cervical cancer screening Scoliosis IBS (irritable bowel syndrome) Surgical History History of surgery on upper extremity Hx of section Family History Paternal Grandmother Hx of diabetes mellitus Social History (Updated 11/10/24 @ 10:23 by KRISTI Matthew) Household Members: Significant Other and Children Both parents involved: Yes Housing: House Are you a primary day care worker to a significant other at home: No Do you presently have visiting nurse or other home services: No 75 years or older and lives alone: No Alcohol intake: never Patient Tobacco Use Status: Never used Tobacco Special pito needs: No Agree to transfusion: Yes Current occupational status: employed 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 Reproductive History Menstrual Age of Menarche: 10 Review of Systems Const All systems reviewed & are unremarkable except as noted in HPI and below Physical Exam Vital Signs: BMI result Body Mass Index 43.4 Const General: cooperative, healthy appearing and no acute distress Orientation/consciousness: patient oriented x3 HEENT Head: Yes normocephalic and Yes atraumatic Eyes EOM: EOMs intact bilaterally Resp Effort & Inspection: normal respiratory effort and able to speak in complete sentences Cardio Jugular venous distension: no JVD Skin General skin exam: turgor normal Rashes: no rashes Neuro General: patient oriented x3 Extrem Other: Evaluation of Right Upper Extremity: The patient is alert, oriented, and in no acute distress Neuro: Median, Ulnar, Radial nerves motor and sensory intact and sensation is normal to the tips of all digits Sensation intact to the radial and ulnar digital nerve distributions of the index finger. Only a small amount of decreased sensation just distal to the transverse laceration over the dorsal aspect of the index finger proximal phalanx Vascular: Cap refill brisk ROM: Initially she had some stiffness in the index finger With encouragement she could make a fist and bring all her digits into full extension, and hold her index finger extended against resistance Skin: Dorsal laceration over the proximal aspect of the index finger, distal to the MCP joint. Transverse, measuring ~1.5cm in length. Wound healing well with no erythema drainage or evidence of infection. Sutures removed and Steri-strips applied Radiographs: 3 view of the right hand from 10/31/24 were reviewed by me today in clinic. They show no fractures, dislocations, or radio-opaque foreign bodies. Psych Appearance: grossly normal Affect: normal affect Attitude: cooperative Assessment & Plan Assessment & Plan (1) Laceration of index finger: Comment: R Code(s): S61.218A - Laceration without foreign body of other finger without damage to nail, initial encounter Category: Medical Qualifiers: Damage to nail status: without damage Encounter type: initial encounter Foreign body presence: without foreign body Laterality: right Qualified Code(s): S61.210A - Laceration without foreign body of right index finger without damage to nail, initial encounter Plan Assessment & Plan: 1. Right index finger dorsal laceration Measuring ~1.5cm in length From a glass, DOI: 10/31/24 Irrigated & sutured in ED on 10/31/24 I educated her about this condition I discussed treatment options No surgical intervention indicated I discussed activity modification, she should work on ROM exercises at home She should use her hand for more normal daily activities at this time She should avoid any underwater activities for the next 5 days If she continues to have difficulty with ROM, we may consider a referral to OT hand therapy She will follow up prn Scribed for Ashlyn Brown MD by Dominick Jacobsen, medical file clerk, on 11/10/24 at 10:35 AM, EST. Coding Level of Care Code New Pt Level 3 (48141) Diagnoses Laceration of index finger S61.210A Damage to nail status: without damage Encounter type: initial encounter Foreign body presence: without foreign body Laterality: right
== END 2024-11-10 10:52 | disposition home or self-care (01) ==
PROVIDERS: PCP Internal Medicine; Visit Provider Orthopaedic Surgery
DX: S61.210A Laceration without foreign body of right index finger without damage to nail, initial encounter (principal)
CPT/HCPCS: 99203

== ENCOUNTER → 2024-11-10 09:58 | Outpatient (BNVA) | payer MEDICAID, SELFPAY | PROVIDERS: PCP Internal Medicine; Visit Provider Orthopaedic Surgery | DX: S61.210D Laceration without foreign body of right index finger without damage to nail, subsequent encounter (principal) | CPT/HCPCS: 99202 ==

== ENCOUNTER 2024-12-20 16:25 | Outpatient (REF) | payer MEDICAID, SELFPAY | END 2024-12-20 16:26 | disposition home or self-care (01) | LOC: HO.LNP 16:25 | PROVIDERS: Visit Provider Internal Medicine | DX: Z13.89 Encounter for screening for other disorder (principal) ==

== ENCOUNTER 2024-12-23 11:31 | Emergency (ER) | payer MEDICAID, SELFPAY ==
[2024-12-23 11:35] VITALS: BP 154/86; PULSE 91; RESP 18; TEMP 36.4; O2SAT 98; BMI 43.4
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
== END 2024-12-23 16:17 | disposition left against medical advice (07) ==
LOC: HO.ED 16:09
PROVIDERS: Emergency Provider Emergency Medicine; PCP Internal Medicine
DX: Z04.1 Encounter for examination and observation following transport accident (principal); R51.9 Headache, unspecified
CPT/HCPCS: 99281

== ENCOUNTER 2025-02-15 09:56 | Outpatient (AMB) | payer MEDICAID, SELFPAY ==
--- NOTE | 2025-02-15 10:23 | A.OFFVIS_ITS ---
Vital Signs 02/15/25 10:24 Height 5 ft 6 in Weight 271 lb 6 oz BMI 43.8 BP 118/64 Blood Pressure Location Lt brachial Position Sitting Intake Visit Reasons: IUD removal Consult Group Tester Required: No Allergies No Known Allergies Allergy (Verified 02/15/25 10:27) Medication List - Last Reconciled 02/15/25 by Dipti Munoz LPN levonorgestrel (Mirena) intrauterine Is last menstrual period known: No Post menopausal: No Patient : No Do you need a note to return to daycare/school/sports/work: No HPI Comments Details: Patient is here today for an IUD consult currently is a Mirena user since January of 2023. She is concerned about her weight fluctuations, mood changes, decrease in sex drive, increase in yeast infections and does not like she does not get a regular cycle. She would rather have a cycle monthly. [facility] Medical History Vaginal itching Fatty liver Kidney stones Morbid obesity Cervical cancer screening Scoliosis IBS (irritable bowel syndrome) Surgical History History of surgery on upper extremity Hx of section Family History Paternal Grandmother Hx of diabetes mellitus Social History Household Members: Significant Other and Children Both parents involved: Yes Housing: House Are you a primary child care assistant to a significant other at home: No Do you presently have visiting nurse or other home services: No 75 years or older and lives alone: No Alcohol intake: never Patient Tobacco Use Status: Never used Tobacco Special pito needs: No Agree to transfusion: Yes Patient : No Current occupational status: employed 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 Reproductive History Menstrual Age of Menarche: 10 Review of Systems Const All systems reviewed & are unremarkable except as noted in HPI and below Physical Exam Vital Signs: Last Vital Signs BP 118/64 02/15/25 10:24 BMI result Body Mass Index 43.8 Const General: cooperative, healthy appearing and no acute distress Orientation/consciousness: patient oriented x3 GI Inspection: Yes normal to inspection Palpation (GI): Soft to palpation and Other GI palpation findings present (Nontender) Rectal Exam - Female: visual inspection normal General: Yes bladder normal to palpation External Female Exam: normal appearance of the urethra Speculum Exam - Vagina: normal appearance of the vagina, normal palpation and normal vaginal discharge Speculum Exam - Cervix: normal appearance of the cervix, normal palpation and Other cervical findings present (IUD strings present at the os) Bimanual exam- vagina & uterus: normal bimanual exam, normal palpation, uterine size normal, bladder normal to palpation, normal palpation, uterine shape normal and non-tender Bimanual Exam- Adnexa, other: normal adnexae Neuro General: patient oriented x3 Assessment & Plan Assessment & Plan (1) Vaginal itching: Code(s): N89.8 - Other specified noninflammatory disorders of vagina Category: Medical Plan: Plan BV panel and GC chlamydia today await results for plan of care. The patient expressed understanding and agreement with the plan of care. All of her questions and concerns were addressed to the best of my ability. (2) Counseling for control regarding intrauterine device (IUD): Code(s): Z30.09 - Encounter for other general counseling and advice on contraception Plan Counseled regarding the Mirena IUD risks benefits, versus other methods including the ParaGard nonhormonal IUD risks benefits. She would like to have an exchange in have a ParaGard placed. Prior authorization form to be signed today. Schedule exchange of the appointment once approved, pre procedure planning to include taking Tylenol or ibuprofen per manufacture's recommendation if no contraindications 1 hour before her appointment time with food and fluids. The patient expressed understanding and agreement with the plan of care. All of her questions and concerns were addressed to the best of my ability. This note is constructed using voice recognition software. While every effort has been made to ensure accuracy, cooler worker errors may have been included. Coding Level of Care Code Est Pt Level 3 (11978) Diagnoses Vaginal itching N89.8 Counseling for control regarding intrauterine device (IUD) Z30.09
[2025-02-15 10:24] VITALS: BP 118/64; BMI 43.8
== END 2025-02-15 11:17 | disposition home or self-care (01) ==
LOC: HO.HWS 09:56
PROVIDERS: PCP Internal Medicine; Visit Provider Advanced Practice Midwife
DX: N89.8 Other specified noninflammatory disorders of vagina (principal); Z30.09 Encounter for other general counseling and advice on contraception
CPT/HCPCS: 99213

== ENCOUNTER 2025-02-15 09:56 | Outpatient (REF) | payer MEDICAID, SELFPAY ==
[2025-02-15 13:49] LABS: Bacterial Vaginosis PCR NEGATIVE (Negative); Candida Group PCR DETECTED (Not Detect); Candida glab krusei PCR NOT DETECTED (Not Detect); Trichomonas vaginalis PCR NOT DETECTED (Not Detect)
[2025-02-15 14:08] LABS: CT PCR NOT DETECTED (Not Detect.); NG PCR NOT DETECTED (Not Detect.)
== END 2025-02-15 09:57 | disposition home or self-care (01) ==
LOC: HO.LNP 09:56
PROVIDERS: PCP Internal Medicine; Visit Provider Advanced Practice Midwife
DX: Z30.09 Encounter for other general counseling and advice on contraception (principal); N89.8 Other specified noninflammatory disorders of vagina
CPT/HCPCS: 81515; 87491; 87591; 99212

== ENCOUNTER 2025-06-07 17:30 | Emergency (ER) | payer MEDICAID, SELFPAY ==
[2025-06-07 17:33] VITALS: BP 149/83; PULSE 104; RESP 18; TEMP 37.4; O2SAT 98; BMI 43.6
--- NOTE | 2025-06-07 17:37 | ED_ITS ---
HPI - General Adult General Chief complaint: General Medical Stated complaint: burning sensation in surgical area Time Seen by Provider: 06/07/25 21:55 Source: patient Mode of arrival: ambulatory Limitations: no limitations History of Present Illness ED Provider: Dr. Belinda Santos HPI narrative: 34-year-old female with history of kidney stones, recurrent UTI presenting with pain in her scar associated with the redness that has been ongoing for the last week or so but worsening over time. Today at work she was so uncomfortable she could not even continue working. Denies associated fever. No drainage from the wounds. No reported nausea or vomiting. Denies associated bowel changes or urinary complaints. Has never had a history of abscesses. Related Data Home Medications ?Medication ?Instructions ?Recorded ?Confirmed levonorgestrel (Mirena) intrauterine 03/28/23 Previous Rx's ?Medication ?Instructions ?Recorded miconazole nitrate 2 % vaginal 1 appful vaginal BEDTIM E 7 days 02/17/25 cream (Miconazole-7) #45 grams cephalexin 500 mg capsule 500 mg PO QID 7 days #28 cap s 06/08/25 hydrocodone 5 mg-acetaminophen 325 1 tab PO Q6H PRN se hi pain 06/08/25 mg tablet (scale score 7-10) #10 tabs Allergies Allergy/AdvReac Type Severity Reaction Status Date / Time No Known Allergies Allergy Verified 06/07/25 17:37 Review of Systems 2 Review of Systems: As per HPI, full review of systems performed and negative but for the above mentioned pertinent positives and negatives. PMFSH Past Medical History Medical History Vaginal itching Fatty liver Kidney stones Morbid obesity Cervical cancer screening Scoliosis IBS (irritable bowel syndrome) Surgical History History of surgery on upper extremity Hx of section Family History Family History Paternal Grandmother Hx of diabetes mellitus Social History Social History Household Members: Significant Other and Children Housing: House Are you a primary before and after school daycare worker to a significant other at home: No Do you presently have visiting nurse or other home services: No Alcohol intake: never Patient Tobacco Use Status: Never used Tobacco Smoked in Last 30 Days: No Use of substances other than those prescribed or required for medical reasons: No Special pito needs: No Agree to transfusion: Yes Advance Directives: No Advance Directives Information Provided: Yes Do you have a plan to hurt others: No Plan Current occupational status: employed 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 SKIN: Normal skin color for ethnicity, warm, dry, intact. HEENT: Normocephalic, atraumatic, no stridor, posterior oropharynx nonerythematous, dentition intact, EOMI. NECK: Soft, supple, full ROM, midline structures nontender, no step-offs, no deformities, no lymphadenopathy. CHEST: Heart regular tachycardia, no murmurs, symmetric chest rise and fall, no crepitus. PULMONARY: Clear to auscultation bilaterally, no labored breathing, no wheezes/rhales/ rhonchi. ABDOMINAL: Soft, nondistended, tenderness overlying the suprapubic region where the scars located with the associated erythema and large area of induration, no fluctuance palpable overlying the pannus, positive bowel sounds in all quadrants. : Deferred. MUSCULOSKELETAL: Normal tone, full range of motion, no deformities, no peripheral edema. NEURO: Alert and oriented x3, CN II through XII intact, equal strength and sensation bilateral upper and lower extremities, no focal neurologic deficits. PSYCHIATRIC: Anxious affect, tearful, fluid speech, good eye contact and appropriate demeanor. Vital Signs: Vital Signs - 24 hr 06/07/25 17:33 06/07/25 22:45 Temperature 99.4 F Pulse Rate 104 H 86 Respiratory Rate 18 16 Blood Pressure 149/83 H 133/85 Pulse Oximetry 98 98 Oxygen Delivery Method Room Air BMI result Body Mass Index 43.6 Course Course Course Narrative: This is a Rapid Medical Examination (RME) performed by Wily Carvalho PA-C in triage. Full HPI, ROS, assessment and treatment plan per primary provider in the Main ED. Hx: 34 yo F here for eval of redness/swelling/ pain to c sxn scar x3 days. applying warm compresses w/o relief. reports c sxn 3 yrs ago. Plan: labs - will defer imaging to primary provider Medications Administered Discontinued Medications Generic Name Dose Route Start Last Admin Trade Name Keturah PRN Reason Stop Dose Admin Hydrocodone Bitart/Acetaminophen 1 tab 06/07/25 22:33 06/07/25 22:43 Hydrocodone Bit/Acetam 5/325 Tablet PO 06/07/25 22:34 1 tab ONCE ONE Administration Lidocaine/Epinephrine 10 ml 06/07/25 22:38 06/07/25 22:43 Lidocaine Hcl 1%/Epi 1:100,000 10 Ml Vial INFILTRATI 06/07/25 22:39 10 ml ONCE ONE Administration Midazolam HCl 5 mg 06/07/25 22:33 06/07/25 22:43 Midazolam Hcl 5 Mg/Ml Vial IM 06/07/25 22:34 5 mg ONCE ONE Administration Procedures Abscess I/D Site: abdomen Sedation/analgesia: midazolam Local Anesthetic: lidocaine 1% and with epi Amount of anesthesia used (mL): 8 Technique: incised with blade and ultrasound guided Amount of fluid expressed (mL): 50 Sent for culture/gram staining?: No Irrigation: No Packing used?: iodoform Complications: pain Medical Decision Making Medical Decision Making [facility] Narrative: Patient presents today with chief complaint of possible infection. Differential diagnosis includes abscess, cellulitis, deep space infection such as fasciitis, bone infection, vascular abnormality, among many others. Findings are not consistent with fasciitis specifically with no crepitus, blistering of the skin, pain out of proportion, hemodynamic instability, poor historical factors. Based on physical examination, incision and drainage was is warranted. Patient has no signs of sepsis though she does have a mildly elevated white blood cell count, there is no bandemia, no fever. Infection appears to be localized to the abdomen overlying her scar. Plan for incision and drainage, pain control and follow up. She does have slight cellulitis in the abdominal wall which we will treat with Keflex. Discharged home to follow up in 48 hours for packing removal. Differential Diagnosis Differential Diagnoses: The differential diagnosis associated with the presentation includes (As above) Admission/Observation Consideration of admission/observation: Escalation of care including admission/observation considered Lab Data [facility] Lab Attestation statement: I reviewed the patient's lab results. 06/07/25 18:02 06/07/25 18:02 Labs: Lab Results 06/07/25 Range/Units 18:02 WBC 10.9 H (4.8-10.8) X10*3/uL RBC 4.20 (4.20-5.50) X10*6/uL Hgb 12.4 (12.0-16.0) g/dl Hct 37.2 (37.0-47.0) % MCV 88.6 (80.0-98.0) fL MCH 29.5 (27.0-33.0) pg MCHC 33.3 (31.0-35.0) g/dl RDW 12.0 (11.0-16.0) % Plt Count 265 (160-400) X10*3/uL MPV 10.2 (9.4-12.3) fL Immature Gran % (Auto) 0.6 H (0.0-0.4) % Neut % (Auto) 70.7 (45-73) % Lymph % (Auto) 19.3 L (20-40) % Calloway % (Auto) 7.1 (2-11) % Eos % (Auto) 1.8 (0-4) % Baso % (Auto) 0.5 (0-2) % Lymph # (Auto) 2.1 (1.2-4.9) X10*3/uL Calloway # (Auto) 0.8 (0.1-1.2) X10*3/uL Eos # (Auto) 0.2 (0.0-0.4) X10*3/uL Baso # (Auto) 0.1 (0.0-0.2) X10*3/uL Abs Immat Gran (auto) 0.06 H (0.00-0.03) X10*3/uL Absolute Neuts (auto) 7.7 (2.0-8.3) x10*3/uL Absolute Nucleated RBC 0.000 (0.0-0.012) X10*3/uL Nucleated RBC % (auto) 0.0 (0.0-0.2) /100WBC ESR 36 H (0-20) MM/HR Sodium 141 (135-145) mmol/L Potassium 3.6 (3.3-5.1) mmol/L Chloride 109 H (96-108) mmol/L Carbon Dioxide 25 (22-29) mmol/L Anion Gap 11 L (12-20) BUN 15 (9-16) mg/dL Creatinine 0.66 (0.5-1.4) mg/dL Estim Creat Clear Calc 157.3 Estimated GFR > 60 Random Glucose 98 (60-115) mg/dL Calcium 9.2 (8.4-10.2) mg/dL Magnesium 2.1 (1.6-2.6) mg/dL Total Bilirubin 0.3 (0.0-1.0) mg/dL AST 24 (5-31) U/L ALT 17 (0-31) U/L Alkaline Phosphatase 113 (39-117) U/L C-Reactive Protein 4.10 H (< or = 0.50) mg/dL Total Protein 7.7 (6.5-8.0) g/dL Albumin 4.6 (3.5-5.0) g/dL Discharge Plan Discharge Clinical Impression: Abscess, Acute suprapubic pain, Abdominal wall cellulitis Patient Disposition: Home, Self-Care Instructions: Cellulitis (ED), Abscess Incision and Drainage (DC) Additional Instructions: Take your antibiotic as prescribed until the course is completed. Do not stop this medication early if you start to feel better. You need the entire course to kill all of the bacteria. Have your packing removed in 48 hours or so. You can return to this emergency department to have that done or alternatively you can go to a walk-in or your primary care doctor's office. Return to the emergency department if you develop any new or worsening symptoms including: Fevers greater than 100?, pus drainage from your wound that is more copious than your seeing already, redness that tracks up your abdomen, vomiting, any new symptom that concerns you. Call 911 with any medical emergency. Prescriptions: New hydrocodone-acetaminophen 5-325 mg tablet 1 tab PO Q6H PRN (Reason: severe pain (scale score 7-10)) Qty: 10 0RF Rx Instructions: Partial Fill upon patient request. cephalexin 500 mg capsule 500 mg PO QID 7 Days Qty: 28 0RF No Action miconazole nitrate [Miconazole-7] 2 % cream 1 appful vaginal BEDTIME 7 Days Qty: 45 0RF Mirena 21 mcg/24 hours (8 yrs) 52 mg intrauterine device intrauterine Print Language: Malian
[2025-06-07 18:20] LABS: Hematocrit 37.2 % (37.0-47.0); Hemoglobin 12.4 g/dl (12.0-16.0); Imm Gran Abs Auto 0.06 X10*3/uL (0.00-0.03); Imm Gran Pct Auto 0.6 % (0.0-0.4); Lymphocytes Absolute Auto 2.1 X10*3/uL (1.2-4.9); MANUAL DIFF FLAG NO; Mean Corpuscular HGB Conc 33.3 g/dl (31.0-35.0); Mean Corpuscular Hemoglobin 29.5 pg (27.0-33.0); Mean Corpuscular Volume 88.6 fL (80.0-98.0); NRBC Abs Auto 0.000 X10*3/uL (0.0-0.012); NRBC Pct Auto 0.0 /100WBC (0.0-0.2); Platelet Count 265 X10*3/uL (160-400); Red Blood Count 4.20 X10*6/uL (4.20-5.50); White Blood Count 10.9 X10*3/uL (4.8-10.8)
[2025-06-07 18:38] LABS: Alanine Aminotransferase 17 U/L (0-31); Albumin Level 4.6 g/dL (3.5-5.0); Alkaline Phosphatase 113 U/L (39-117); Anion Gap 11 (12-20); Aspartate Amino Transferase 24 U/L (5-31); Blood Urea Nitrogen 15 mg/dL (9-16); Calcium 9.2 mg/dL (8.4-10.2); Carbon Dioxide 25 mmol/L (22-29); Chloride 109 mmol/L (96-108); Creatinine Clr Calc Pharmacy 157.3; Estimated Glomerular Filt Rate > 60; Magnesium 2.1 mg/dL (1.6-2.6); Potassium 3.6 mmol/L (3.3-5.1); Sodium 141 mmol/L (135-145); Total Protein 7.7 g/dL (6.5-8.0)
[2025-06-07] MEDS: Lidocaine HCl 1%/Epi 1:100,000 10 ML VIAL INFILTRATI (22:43)
[2025-06-07] MEDS: HYDROcodone Bit/Acetam 5/325 TABLET 1 TAB PO (22:43)
[2025-06-07 22:45] VITALS: BP 133/85; PULSE 86; RESP 16; O2SAT 98
[2025-06-08 00:51] VITALS: BP 119/73; PULSE 82; RESP 16; TEMP 36.8; O2SAT 98
[2025-06-08 01:00] VITALS: BP 119/73; PULSE 82; RESP 16; TEMP 36.8; O2SAT 98
== END 2025-06-08 01:01 | disposition home or self-care (01) ==
PROVIDERS: Physician Assistant Medical; Emergency Provider Emergency Medicine; PCP Internal Medicine
DX: L02.211 Cutaneous abscess of abdominal wall (principal); L03.311 Cellulitis of abdominal wall; Z87.440 Personal history of urinary (tract) infections; Z79.899 Other long term (current) drug therapy; Z87.442 Personal history of urinary calculi
CPT/HCPCS: 10060; 36415; 80053; 83735; 85025; 85652; 86140; 96372; 99284; J2004; J2250

== ENCOUNTER 2025-06-09 12:30 | Inpatient (IN) | payer MEDICAID, SELFPAY ==
--- NOTE | ~2025-06-09 | CT_ITS ---
CLINICAL HISTORY: cellulitis evaluate for necrotising fascitis CT abdomen and pelvis with contrast Comparison: CT/REG/AZ/SR - CT ABDOMEN PELVIS W IV CON - 10/06/23 14:48 EST Findings: No consolidation or effusion. Hepatomegaly measuring 21.0 cm in the craniocaudal dimension. Gallbladder, pancreas, spleen, and adrenal glands are within normal limits. No hydronephrosis. Symmetric contrast enhancement of the kidneys. No bowel obstruction, pneumoperitoneum, or pneumatosis. Mild subcutaneous fat stranding in the lower anterior abdominal wall with trace subcutaneous air best seen on sagittal image 64/102. IUD in the endometrial cavity. Urinary bladder is underdistended. The bones are intact. IMPRESSION: Mild subcutaneous fat stranding in the lower anterior abdominal wall with trace subcutaneous air best seen on sagittal image 64/102 concerning for developing necrotizing fasciitis. This document has been electronically signed by: Cari Lamar MD on 06/09/2025 19:55:23
[2025-06-09 13:03] VITALS: BP 129/66; PULSE 83; RESP 18; TEMP 36.3; O2SAT 97; BMI 43.7
--- NOTE | 2025-06-09 13:05 | ED_ITS ---
HPI - General Adult General Chief complaint: Skin/Abscess/Foreign Body Stated complaint: cellulitis Time Seen by Provider: 06/09/25 16:02 Source: patient Mode of arrival: ambulatory Limitations: no limitations History of Present Illness ED Provider: Dr. Marquez [facility] narrative: This is a 34-year-old female recent drainage of abscess in the lower abdomen pannus presented to the hospital today for worsening infection. Patient stated the redness is worsening. She has been taking Keflex for 2 days. She stated that this abscess was packed. She is back for removal. She denies any fever. She has been compliant with her medication. Related Data Home Medications ?Medication ?Instructions ?Recorded ?Confirmed levonorgestrel (Mirena) intrauterine 03/28/23 Previous Rx's ?Medication ?Instructions ?Recorded miconazole nitrate 2 % vaginal 1 appful vaginal BEDTIM E 7 days 02/17/25 cream (Miconazole-7) #45 grams cephalexin 500 mg capsule 500 mg PO QID 7 days #28 cap s 06/08/25 hydrocodone 5 mg-acetaminophen 325 1 tab PO Q6H PRN se hi pain 06/08/25 mg tablet (scale score 7-10) #10 tabs Allergies Allergy/AdvReac Type Severity Reaction Status Date / Time No Known Allergies Allergy Verified 06/09/25 13:06 Review of Systems 2 Review of Systems: Pertinent review of systems as mentioned in [facility]. All other system otherwise negative. [facility] Past Medical History [facility] Narrative: Medical history as mentioned in [facility] Medical History (Updated 06/09/25 @ 21:22 by Roxana Marquez DO) Abdominal wall abscess Vaginal itching Fatty liver Kidney stones Morbid obesity Cervical cancer screening Scoliosis IBS (irritable bowel syndrome) Surgical History History of surgery on upper extremity Hx of section Family History Family History Paternal Grandmother Hx of diabetes mellitus Social History Social History Household Members: Significant Other and Children Housing: House Are you a primary medical care administrator to a significant other at home: No Do you presently have visiting nurse or other home services: No Alcohol intake: never Patient Tobacco Use Status: Never used Tobacco Smoked in Last 30 Days: No Use of substances other than those prescribed or required for medical reasons: No Special pito needs: No Agree to transfusion: Yes Advance Directives: No Advance Directives Information Provided: Yes Do you have a plan to hurt others: No Plan Current occupational status: employed 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 Physical Exam ED Exam Exam: General: Pleasant, no distress, interacting appropriately Head: Normacephalic, atraumatic ENT: oral mucosa moist, neck supple, no tracheal deviation Cardiovascular: regular rate, regular rhythm, no murmurs, rubbing, gallops Respiratory: CTAB, no wheeze, rales, rhonchi Gastrointestinal: Soft, non distended, patient has a pannus with cellulitic changes, No crepitus on exam Neurological: Awake and alert, no facial droop noted Skin: Warm and dry Psychiatric: Appropriate mood and thoughts Vital Signs: Vital Signs - 24 hr 06/09/25 13:03 06/09/25 16:34 06/09/25 18:19 Temperature 97.4 F 97.3 F Pulse Rate 83 83 84 Respiratory Rate 18 14 20 Blood Pressure 129/66 123/77 126/79 Pulse Oximetry 97 97 99 Oxygen Delivery Method Room Air Room Air Room Air 06/09/25 20:03 Temperature 98.7 F Pulse Rate 80 Respiratory Rate 16 Blood Pressure 117/66 Pulse Oximetry 97 Oxygen Delivery Method Room Air BMI result Body Mass Index 43.7 Course Course Course Narrative: This is an RME: Additional HPI, ROS, PE not included below will be deferred to primary provider. RME assessment and note performed by: Lesa Wang PA-C This is a 34-year-old female who presents emergency department with concerns of right lower abdominal wall abscess. Was seen here 2 days ago and had an incision and drainage, she states that things are not getting better and getting worse. She is still taking p.o. antibiotics. Unable to visualize in triage secondary to limited privacy. Plan: Labs Medications Administered Discontinued Medications Generic Name Dose Route Start Last Admin Trade Name Freq PRN Reason Stop Dose Admin Ceftriaxone Sodium 2 gm 06/09/25 16:48 06/09/25 17:04 Ceftriaxone Sodium 2 Gm Vial IVPUSH 06/09/25 16:49 2 gm ONCE ONE Administration Diphenhydramine HCl 25 mg 06/09/25 18:13 06/09/25 18:22 Diphenhydramine Hcl 50 Mg/Ml Vial IVPUSH 06/09/25 18:14 25 mg ONCE ONE Administration Vancomycin HCl 2,000 mg in 500 mls @ 250 mls/hr 06/09/25 16:48 06/09/25 20:02 Vancomycin/Ns IV 06/09/25 18:47 136 mls/hr ONCE ONE Infusion Sodium Chloride 1,000 mls @ 999 mls/hr 06/09/25 17:00 06/09/25 19:11 Ns IV 06/09/25 18:00 Infused .Q1H1M MAHI Infusion Iohexol 100 ml 06/09/25 18:46 06/09/25 18:46 Iohexol 350 Mg/Ml 100 Ml Infus..Btl IV 06/09/25 18:47 85 ml ONCE ONE Administration Morphine Sulfate 4 mg 06/09/25 16:49 06/09/25 17:04 Morphine Sulfate 4 Mg/Ml Cartridge IVPUSH 06/09/25 16:50 4 mg ONCE ONE Administration Protocol Medical Decision Making Medical Decision Making MDM Narrative: This is a 34-year-old female presented hospital today for evaluation of infection of her pannus. Patient has erythema appears to be expanded despite Keflex. Patient did not have any MRSA coverage on this antibiotic. We will plan to start patient on IV vancomycin and IV ceftriaxone. Did discuss increasing her antibiotic regimen at this time. She may benefit from MRSA coverage. However given the appearance of her wound and discoloration and expanding of the wound we will obtain CT imaging to rule out necrotizing fasciitis. She does not appear to be toxic no sign of leukocytosis no sign of tachycardia no signs of fever. I do not think patient has sepsis at this time. Sepsis focused exam was performed Patient was still having some abdominal pain over the cellulitic area. Given the pain on the proportion we will obtain a CT imaging to rule out necrotizing fasciitis. CT imaging did show soft tissue air on results. The patient's antibiotic was broaden to IV vancomycin and IV clindamycin. General surgery team was consulted. Discussed the case with Dr. Taylor. He performed an I and D for the patient. Recommends IV antibiotic admission. Patient will be admitted to the hospital. Differential Diagnosis Differential Diagnoses: The differential diagnosis associated with the presentation includes Cellulitis, abscess, necrotizing fasciitis Consult Healthcare Provider Management of the patient was discussed with: Hospitalist and Clay Hoister (Dr. Taylor) Lab Data MDM Lab Attestation statement: I reviewed the patient's lab results. 06/09/25 13:28 06/09/25 13:28 Labs: Lab Results 06/09/25 06/09/25 Range/Units 13:28 16:56 WBC 8.4 (4.8-10.8) X10*3/uL RBC 3.92 L (4.20-5.50) X10*6/uL Hgb 11.6 L (12.0-16.0) g/dl Hct 34.8 L (37.0-47.0) % MCV 88.8 (80.0-98.0) fL MCH 29.6 (27.0-33.0) pg MCHC 33.3 (31.0-35.0) g/dl RDW 11.9 (11.0-16.0) % Plt Count 267 (160-400) X10*3/uL MPV 10.1 (9.4-12.3) fL Immature Gran % (Auto) 0.5 H (0.0-0.4) % Neut % (Auto) 62.1 (45-73) % Lymph % (Auto) 26.1 (20-40) % [place]a % (Auto) 8.2 (2-11) % Eos % (Auto) 2.4 (0-4) % Baso % (Auto) 0.7 (0-2) % Lymph # (Auto) 2.2 (1.2-4.9) X10*3/uL [place] # (Auto) 0.7 (0.1-1.2) X10*3/uL Eos # (Auto) 0.2 (0.0-0.4) X10*3/uL Baso # (Auto) 0.1 (0.0-0.2) X10*3/uL Abs Immat Gran (auto) 0.04 H (0.00-0.03) X10*3/uL Absolute Neuts (auto) 5.2 (2.0-8.3) x10*3/uL Absolute Nucleated RBC 0.000 (0.0-0.012) X10*3/uL Nucleated RBC % (auto) 0.0 (0.0-0.2) /100WBC Sodium 142 (135-145) mmol/L Potassium 3.8 (3.3-5.1) mmol/L Chloride 108 (96-108) mmol/L Carbon Dioxide 27 (22-29) mmol/L Anion Gap 11 L (12-20) BUN 13 (9-16) mg/dL Creatinine 0.62 (0.5-1.4) mg/dL Estim Creat Clear Calc 167.7 Estimated GFR > 60 Random Glucose 92 (60-115) mg/dL Lactic Acid 0.6 (0.5-2.0) mmol/L Calcium 9.3 (8.4-10.2) mg/dL Total Bilirubin 0.3 (0.0-1.0) mg/dL Direct Bilirubin 0.1 (0.0-0.5) mg/dL AST 29 (5-31) U/L ALT 20 (0-31) U/L Alkaline Phosphatase 114 (39-117) U/L Total Protein 7.6 (6.5-8.0) g/dL Albumin 4.5 (3.5-5.0) g/dL Beta HCG, Quant < 2 mIU/mL Independent Interpretation I performed an independent interpretation of an: CT Scan Radiology Impression Discussion of test interpretation with radiology: I have reviewed the radiologist's reading. Discharge Plan Discharge Clinical Impression: Cellulitis Qualifiers: Site of cellulitis: trunk Site of cellulitis of trunk: abdominal wall Qualified Code(s): L03.311 - Cellulitis of abdominal wall Patient Disposition: Admitted As Inpatient Print Language: Kenyan
[2025-06-09 13:33] LABS: MANUAL DIFF FLAG NO
[2025-06-09 13:40] LABS: Hematocrit 34.8 % (37.0-47.0); Hemoglobin 11.6 g/dl (12.0-16.0); Imm Gran Abs Auto 0.04 X10*3/uL (0.00-0.03); Imm Gran Pct Auto 0.5 % (0.0-0.4); Lymphocytes Absolute Auto 2.2 X10*3/uL (1.2-4.9); Mean Corpuscular HGB Conc 33.3 g/dl (31.0-35.0); Mean Corpuscular Hemoglobin 29.6 pg (27.0-33.0); Mean Corpuscular Volume 88.8 fL (80.0-98.0); NRBC Abs Auto 0.000 X10*3/uL (0.0-0.012); NRBC Pct Auto 0.0 /100WBC (0.0-0.2); Platelet Count 267 X10*3/uL (160-400); Red Blood Count 3.92 X10*6/uL (4.20-5.50); White Blood Count 8.4 X10*3/uL (4.8-10.8)
[2025-06-09 13:50] LABS: Alanine Aminotransferase 20 U/L (0-31); Albumin Level 4.5 g/dL (3.5-5.0); Alkaline Phosphatase 114 U/L (39-117); Anion Gap 11 (12-20); Aspartate Amino Transferase 29 U/L (5-31); Blood Urea Nitrogen 13 mg/dL (9-16); Calcium 9.3 mg/dL (8.4-10.2); Carbon Dioxide 27 mmol/L (22-29); Chloride 108 mmol/L (96-108); Creatinine Clr Calc Pharmacy 167.7; Estimated Glomerular Filt Rate > 60; Potassium 3.8 mmol/L (3.3-5.1); Sodium 142 mmol/L (135-145); Total Protein 7.6 g/dL (6.5-8.0)
[2025-06-09 16:34] VITALS: BP 123/77; PULSE 83; RESP 14; TEMP 36.3; O2SAT 97
[2025-06-09] MEDS: vancomycin/NS 2,000 MG/500 ML PLAST..BAG 250 MG IV (17:17)
--- NOTE | 2025-06-09 18:18 | PC.NURSE ---
this RN pulled into room as wood carver as primary RN was with another pt, pt reporting whole body itching, feeling like she is crawling out of her skin, vitals obtained, MD at bedside. Meds ordered, pt brought to CT at this time. stable on RA speaking full sentences
[2025-06-09 18:19] VITALS: BP 126/79; PULSE 84; RESP 20; O2SAT 99
[2025-06-09] MEDS: iohexoL 350 MG/ML 100 ML INFUS..BTL IV (18:46)
--- NOTE | 2025-06-09 20:02 | PC.NURSE ---
Per Dr. Marquez vanco to be restarted at a lower rate.
[2025-06-09 20:03] VITALS: BP 117/66; PULSE 80; RESP 16; TEMP 37.1; O2SAT 97
--- NOTE | 2025-06-09 21:00 | P.CONGS_ITS ---
History of Present Illness Consult details Consult date: 06/09/25 Narrative: 34-year-old female referred for redness of the abdominal wall. She apparently had an I&D of an abscess in the ER 2 days ago. She was placed on Keflex but she says that she would notice more redness and tenderness today shows she came back to the ED She denies any fever or chills. She says she feels well overall. She is not a diabetic. She is uncertain as to how this started, and she denies any trauma or bug bite. This abscess was on her previous Pfannenstiel incision from a 3 years ago. Review of Systems 2 Constitutional: Constitutional: Denies chills and Denies fever(s) Cardiovascular: Cardiovascular: Denies chest pain, Denies dyspnea and Denies dyspnea on exertion Respiratory: Respiratory: Denies cough, Denies dyspnea and Denies dyspnea on exertion Gastrointestinal: Gastrointestinal: Denies hematochezia and Denies change in bowel habits Genitourinary: Genitourinary: Denies hematuria Musculoskeletal: Musculoskeletal: Denies back pain and Denies limited range of motion Neurologic: Denies focal weakness and Denies convulsions Psychiatric: Psychiatric: Denies depression and Denies mood swings PMFSH Past Medical History Medical History (Updated 06/09/25 @ 21:22 by Roxana Marquez DO) Abdominal wall abscess Vaginal itching Fatty liver Kidney stones Morbid obesity Cervical cancer screening Scoliosis IBS (irritable bowel syndrome) Family History Family History Paternal Grandmother Hx of diabetes mellitus Surgical History Surgical History History of surgery on upper extremity Hx of section Social History Social History Household Members: Family Housing: Apartment Are you a primary medicare sales executive to a significant other at home: No Do you presently have visiting nurse or other home services: No Alcohol intake: never Patient Tobacco Use Status: Never used Tobacco Smoked in Last 30 Days: No Use of substances other than those prescribed or required for medical reasons: No Currently Displaying Signs/Symptoms of Drug Intoxication Withdrawal: No Have you been hit, kicked, punched, or otherwise hurt by someone within the past year? 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 Allergies Allergy/AdvReac Type Severity Reaction Status Date / Time No Known Allergies Allergy Verified 06/09/25 13:06 Home Medications ?Medication ?Instructions ?Recorded ?Confirmed ?Last Taken ?Type acetaminophen 325 mg tablet 650 mg PO Q4H PRN Migraine Headache 06/09/25 06/09/25 Unknown History calcium 333 mg-vit D3 133 1 tab PO DAILY 06/09/2505/1706/09/25 History unit-magnesium 133 mg-zinc 5 mg tablet ibuprofen 200 mg tablet 400 mg PO Q6H PRN Migraine H eadache 06/09/25 06/09/25 Unknown History multivitamin-ferrous 1 tab PO DAILY 06/09/2505/1706/09/25 History fumarate-folic acid 18 mg-400 mcg tablet (Women's Daily Multivitamin) sumatriptan succinate 100 mg tablet 100 mg PO DAILY MR X1 PRN Migraine 06/09/25 06/09/25 Unknown History Headache Physical Exam 2 Vital Signs: Vital Signs: Last Vital Signs Temp 98.7 F 06/09/25 20:03 Pulse 80 06/09/25 20:03 Resp 16 06/09/25 20:03 BP 117/66 06/09/25 20:03 Pulse Ox 97 06/09/25 20:03 O2 Del Method Room Air 06/09/25 20:03 BMI result Body Mass Index 43.7 Const: Other: Morbidly obese General: comfortable and no acute distress Orientation/consciousness: p atient oriented x3 Neck: Neck: Yes no lymphadenopathy Resp: Auscultation: clear to auscultation bilaterally Cardio: Rhythm: regular rhythm GI: Other: Area of redness underneath her pannus on the anterior abdominal wall around the midline with central induration, multiple small superficial suggestive of a carbuncle like lesion; previous I&D site has closed, no crepitus Palpation (GI): Soft to palpation, nontender and no guarding Neuro: General: patient oriented x3 Results Labs 06/10/25 06:35 06/10/25 06:35 Labs: Abnormal lab results 06/09/25 Range/Units 13:28 RBC 3.92 L (4.20-5.50) X10*6/uL Hgb 11.6 L (12.0-16.0) g/dl Hct 34.8 L (37.0-47.0) % Immature Gran % (Auto) 0.5 H (0.0-0.4) % Abs Immat Gran (auto) 0.04 H (0.00-0.03) X10*3/uL Anion Gap 11 L (12-20) Short CBC 06/09/25 Range/Units 13:28 WBC 8.4 (4.8-10.8) X10*3/uL Hgb 11.6 L (12.0-16.0) g/dl Hct 34.8 L (37.0-47.0) % Plt Count 267 (160-400) X10*3/uL BMP 06/09/25 13:28 Sodium 142 Potassium 3.8 Chloride 108 Carbon Dioxide 27 BUN 13 Creatinine 0.62 Calcium 9.3 Liver Function 06/09/25 Range/Units 13:28 Total Bilirubin 0.3 (0.0-1.0) mg/dL Direct Bilirubin 0.1 (0.0-0.5) mg/dL AST 29 (5-31) U/L ALT 20 (0-31) U/L Alkaline Phosphatase 114 (39-117) U/L Albumin 4.5 (3.5-5.0) g/dL All other labs normal. IMPRESSION: Mild subcutaneous fat stranding in the lower anterior abdominal wall with trace subcutaneous air best seen on sagittal image 64/102 concerning for developing necrotizing fasciitis. Assessment and Plan (1) Abdominal wall abscess: Status: Acute She has what appears to be a carbuncle like infection on the pannus of the abdominal wall. Small locules of air in the subcutaneous layer superficially on CAT scan likely due to I and D from the other night. There was no evidence of any necrotizing soft tissue infection when the area was opened up with a blade 11. I made a generous cruciate incision to drain all pockets of small abscesses in the subcutaneous area. I applied dry dressings. She will need to be admitted for IV antibiotics however. We will continue to follow her he had I did explain to her that if this does not resolve or worsens, we may need to do sharp debridement in the OR under anesthesia in view of her large pannus. She she understands the plan well She he is hemodynamically stable and is not toxic looking. Clinically, she does not present with any signs of a necrotizing soft tissue infection. Procedures Date of Service Date of Service: 06/10/25 Abscess I/D Site: abdomen Anesthetic used: lidocaine 1% Technique: incised with #11 blade Additional comments: The pannus was lifted. The area of induration was prepped and draped. Lidocaine 1% was used to infiltrate the area. I made a generous cruciate incision using blade 11. This was made on the skin away to the deep subcutaneous tissue. There was note of diseased and inflamed subcutaneous fat without evidence of any necrotizing process. Small pockets of abscesses were noted that suggested a carbuncle like process. I then applied dry dressings. Cultures were taken. She tolerated procedure well. There were no immediate complications. There was minimal blood loss
--- NOTE | 2025-06-09 21:27 | PM.IMHP ---
History of Present Illness Date of Service: 06/09/25 Chief Complaint: abd wall redness 34-year-old female with a past medical history of obesity, abdominal wall hernia, recurrent UTIs; presented to the hospital today with a chief complaint of abnormal redness. Patient initially presented to the hospital 2 days ago to the ER with abdominal wall redness and noted to have cellulitis and was discharged home on the Keflex. Patient presented back again because of the increased redness. Denies any fevers. Denies any abdominal pain. Denies any nausea vomiting. Denies any chest pain or palpitations. Denies any GI symptoms. Review of all other systems is negative except mentioned above ER course: Per ER physician, patient not have abdominal tenderness and possible abscess. CT abdomen pelvis was done which showed abdominal wall abscess and also findings concerning for necrotizing fasciitis. Patient has stable vitals and does not appear toxic looking. Patient was evaluated by General surgery in the ER and did I and D for the abscess. And General surgery mentioned patient does not have any concerns for necrotizing fasciitis. Recommended admission to the medicine service for IV antibiotics and general surgery will follow along. [facility] Medical History (Updated 06/09/25 @ 21:22 by Roxana Marquez DO) Abdominal wall abscess Vaginal itching Fatty liver Kidney stones Morbid obesity Cervical cancer screening Scoliosis IBS (irritable bowel syndrome) Family History Paternal Grandmother Hx of diabetes mellitus Surgical History History of surgery on upper extremity Hx of section Social History Household Members: Significant Other and Children Housing: House Are you a primary child day care center worker to a significant other at home: No Do you presently have visiting nurse or other home services: No Alcohol intake: never Patient Tobacco Use Status: Never used Tobacco Smoked in Last 30 Days: No Use of substances other than those prescribed or required for medical reasons: No Special pito needs: No Agree to transfusion: Yes Advance Directives: No Advance Directives Information Provided: Yes Do you have a plan to hurt others: No Plan 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 occupational status: employed 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 Allergies Allergy/AdvReac Type Severity Reaction Status Date / Time No Known Allergies Allergy Verified 06/09/25 13:06 Active Medications: Current Medications Acetaminophen (Acetaminophen 325 Mg Tablet) 650 mg PO Q6H PRN PRN Reason: Pain, Mild 1-3,fever,headache Ceftriaxone Sodium (Ceftriaxone Sodium 1 Gm Vial) 1 gm IVPUSH Q24H MAHI Enoxaparin Sodium (Enoxaparin Sodium 40 Mg/0.4 Ml Syringe) 40 mg SUBCUT Q24H MAHI Lactated Ringer's (Lr) 1,000 mls @ 100 mls/hr IVCONT .Q10H MAHI Melatonin (Melatonin 3 Mg Tablet) 6 mg PO BEDTIME PRN PRN Reason: Insomnia Pharmacy Consult (Consult Rx Vancomycin Dosing) 1 each MISCELLANE DAILY PRN PRN Reason: Consult order Home Medications ?Medication ?Instructions ?Recorded ?Confirmed ?Last Taken ?Type levonorgestrel (Mirena) intrauterine 03/28/23 02/15/25 Unknown History Physical Exam Vital Signs and Narrative: Vital Signs: Last Vital Signs Temp 98.7 F 06/09/25 20:03 Pulse 80 06/09/25 20:03 Resp 16 06/09/25 20:03 BP 117/66 06/09/25 20:03 Pulse Ox 97 06/09/25 20:03 O2 Del Method Room Air 06/09/25 20:03 BMI result Body Mass Index 43.7 Gen: Appears be in no acute distress HEENT: NCAT, Moist mucosa. Pulmonary: Vesicular breath sounds, fair air entry CVS: Normal S1-S2 Abdomen: BS+, Soft, Nontender; noted erythema and redness. Status post I&D. Extremities: Warm well perfused Neuro: Alert and awake. Results Labs 06/09/25 13:28 06/09/25 13:28 Labs: Laboratory Results - last 24 hr 06/09/25 06/09/25 13:28 16:56 MCV 88.8 MCH 29.6 MCHC 33.3 RDW 11.9 Plt Count 267 MPV 10.1 Immature Gran % (Auto) 0.5 H Neut % (Auto) 62.1 Lymph % (Auto) 26.1 [place] % (Auto) 8.2 Eos % (Auto) 2.4 Baso % (Auto) 0.7 Lymph # (Auto) 2.2 [place] # (Auto) 0.7 Eos # (Auto) 0.2 Baso # (Auto) 0.1 Abs Immat Gran (auto) 0.04 H Absolute Neuts (auto) 5.2 Absolute Nucleated RBC 0.000 Nucleated RBC % (auto) 0.0 Anion Gap 11 L Estim Creat Clear Calc 167.7 Estimated GFR > 60 Random Glucose 92 Lactic Acid 0.6 Calcium 9.3 Total Bilirubin 0.3 Direct Bilirubin 0.1 AST 29 ALT 20 Alkaline Phosphatase 114 Total Protein 7.6 Albumin 4.5 Beta HCG, Quant < 2 Assessment and Plan (1) Abdominal wall abscess: Status: Acute Plan 34-year-old female with a past medical history of obesity, abdominal wall hernia, recurrent UTIs; presented to the hospital today with a chief complaint of abnormal redness. Noted abdominal wall cellulitis/abscess. Abdominal wall cellulitis/abscess: Status post I and D by General surgery team. General surgery mentioned no concern for necrotizing fasciitis-recommended IV antibiotics for now Continue IV vancomycin and ceftriaxone ID consult for further input Follow-up cultures DVT prophylaxis: Lovenox Code status: Full code Quality Stroke Does the patient have a stroke diagnosis?: No VTE Prior VTE?: No VTE Risk Level:: Medical - moderate - high VTE Device Contraindication: Treatment Not Indicated VTE Drug Contraindication: N/A - Med Ordered
--- NOTE | 2025-06-09 21:35 | PHA.PROG ---
Admission Date/Time: June 09, 2025 21:18 Indication: ssti Weight in k.8 kg Adjusted body weight in K.7 kg [place] body weight in K.3 kg Obesity Dosing Indication % IBW: Serum Creatinine - Last 168 Hours 06/09/25 13:28 Creatinine 0.62 Estimated CrCl and GFR - Last 168 Hours 06/09/25 13:28 Estim Creat Clear Calc 167.7 Estimated GFR > 60 Vancomycin Loading Dose: 2000 mg Current Vancomycin Dosing Regimen: 1500 mg q12h Vancomycin Monitoring using AUC goal of 400 - 600 range with trough as surrogate marker: predicted AUC 524 Date and Time for next Vancomycin Level to be drawn: random before 3rd dose 06/10/25 @1500 Pharmacist Comments on Vancomycin Plan: obese Vancomycin dosing will take advantage of [employer] as a clinical decision support tool that uses Bayesian modeling to calculate individual patient's pharmacokinetic parameters and forecast the patient's drug concentration time course with the target goal AUC 24 range of 400 - 600 mg/L/hr.
[2025-06-09] MEDS: Lactated Ringers 1,000 ML 100 ML IVCONT (22:05)
--- NOTE | 2025-06-09 22:05 | PHA.MEDREC ---
Addendum entered by Shae Leroy RPh 06/09/25 22:09: REVIEWED BY [facility] Original Note: Pharmacy Consult ? Medication Reconciliation Pharmacy has completed the medication reconciliation. Spoke with pt and she confirmed her medications. Pt confirmed she started the Cephalexin 500mg QID regimen and Hydrocodone-Acetaminophen 1 tab Q6H prn sever pain this morning.
[2025-06-09] MEDS: Lidocaine HCl 1 % 20 ML VIAL 5 ML INFILTRATI (22:06)
[2025-06-09 23:56] VITALS: BP 118/71; PULSE 70; RESP 18; O2SAT 97
[2025-06-10 00:42] VITALS: BMI 41.5
[2025-06-10 03:59] VITALS: BP 99/54; PULSE 71; RESP 16; TEMP 36.4; O2SAT 99
[2025-06-10 07:23] VITALS: BP 128/72; PULSE 71; RESP 18; TEMP 36.6; O2SAT 98
[2025-06-10 07:41] LABS: MANUAL DIFF FLAG NO
[2025-06-10 07:48] LABS: Hematocrit 33.7 % (37.0-47.0); Hemoglobin 11.4 g/dl (12.0-16.0); Imm Gran Abs Auto 0.04 X10*3/uL (0.00-0.03); Imm Gran Pct Auto 0.5 % (0.0-0.4); Lymphocytes Absolute Auto 2.3 X10*3/uL (1.2-4.9); Mean Corpuscular HGB Conc 33.8 g/dl (31.0-35.0); Mean Corpuscular Hemoglobin 30.2 pg (27.0-33.0); Mean Corpuscular Volume 89.2 fL (80.0-98.0); NRBC Abs Auto 0.000 X10*3/uL (0.0-0.012); NRBC Pct Auto 0.0 /100WBC (0.0-0.2); Platelet Count 246 X10*3/uL (160-400); Red Blood Count 3.78 X10*6/uL (4.20-5.50); White Blood Count 8.2 X10*3/uL (4.8-10.8)
[2025-06-10 08:06] LABS: Alanine Aminotransferase 22 U/L (0-31); Albumin Level 3.9 g/dL (3.5-5.0); Alkaline Phosphatase 104 U/L (39-117); Anion Gap 10 (12-20); Aspartate Amino Transferase 26 U/L (5-31); Blood Urea Nitrogen 11 mg/dL (9-16); Calcium 8.6 mg/dL (8.4-10.2); Carbon Dioxide 27 mmol/L (22-29); Chloride 109 mmol/L (96-108); Creatinine Clr Calc Pharmacy 155.4; Estimated Glomerular Filt Rate > 60; Potassium 3.9 mmol/L (3.3-5.1); Sodium 142 mmol/L (135-145); Total Protein 6.6 g/dL (6.5-8.0)
--- NOTE | 2025-06-10 08:46 | P.PNGS_ITS ---
Subjective Subjective Date of Service: 06/10/25 <Andreina Dobbs PA-C - Last Filed: 06/10/25 08:55> 06/10/25 <Kayden Taylor MD - Last Filed: 06/10/25 10:50> Interval history: C/o pain at I&D site. Asking to shower. <Andreina Dobbs PA-C - Last Filed: 06/10/25 08:55> Physical Exam 2 Vital Signs: Vital Signs: Last Vital Signs Temp 97.9 F 06/10/25 07:23 Pulse 71 06/10/25 07:23 Resp 18 06/10/25 07:23 BP 128/72 06/10/25 07:23 Pulse Ox 98 06/10/25 07:23 O2 Del Method Room Air 06/10/25 07:23 BMI result Body Mass Index 41.5 <Andreina Dobbs PA-C - Last Filed: 06/10/25 08:55> Const: General: comfortable, no acute distress and alert <Andreina Dobbs PA-C - Last Filed: 06/10/25 08:55> Orientation/consciousness: patient oriented x3 <MARCELA Swann Last Filed: 06/10/25 08:55> GI: Other: mild persistent edema and pale erythema within line of demarcation at lower aspect of pannus, surrounding induration at I&D site without crepitus or fluctuance, area tender, no purulent drainage <Andreina Dobbs PA-C - Last Filed: 06/10/25 08:55> Neuro: General: patient oriented x3 and moves all extremities <Andreina Dobbs PA-C - Last Filed: 06/10/25 08:55> Objective Data Active Medications Acetaminophen (Acetaminophen 325 Mg Tablet) 650 mg PO Q6H PRN PRN Reason: Pain, Mild 1-3,fever,headache Last Admin: 06/10/25 00:50 Dose: 650 mg Documented By: DEEJAY Ceftriaxone Sodium (Ceftriaxone Sodium 1 Gm Vial) 1 gm IVPUSH Q24H MAHI Enoxaparin Sodium (Enoxaparin Sodium 40 Mg/0.4 Ml Syringe) 40 mg SUBCUT Q24H MAHI Last Admin: 06/09/25 22:05 Dose: 40 mg Documented By: DITOLC Lactated Ringer's (Lr) 1,000 mls @ 100 mls/hr IVCONT .Q10H [facility] Last Infusion: 06/10/25 05:45 Dose: 100 mls/hr Documented By: DEEJAY Vancomycin HCl 1,500 mg/ (Sodium Chloride) 500 mls @ 333.333 mls/hr IV Q12H [facility] Last Infusion: 06/10/25 06:20 Dose: Infused Documented By: DEEJAY Melatonin (Melatonin 3 Mg Tablet) 6 mg PO BEDTIME PRN PRN Reason: Insomnia Pharmacy Consult (Consult Rx Vancomycin Dosing) 1 each MISCELLANE DAILY PRN PRN Reason: Consult order <Andreina Dobbs PA-C - Last Filed: 06/10/25 08:55> Labs CBC & Chem 7: 06/10/25 06:35 06/10/25 06:35 <Andreina Dobbs PA-C - Last Filed: 06/10/25 08:55> Labs: Laboratory Results - last 24 hr 06/09/25 06/09/25 06/10/25 13:28 16:56 06:35 MCV 88.8 89.2 MCH 29.6 30.2 MCHC 33.3 33.8 RDW 11.9 11.9 Plt Count 267 246 MPV 10.1 10.2 Immature Gran % (Auto) 0.5 H 0.5 H Neut % (Auto) 62.1 59.4 Lymph % (Auto) 26.1 28.4 [place] % (Auto) 8.2 8.9 Eos % (Auto) 2.4 2.3 Baso % (Auto) 0.7 0.5 Lymph # (Auto) 2.2 2.3 [place] # (Auto) 0.7 0.7 Eos # (Auto) 0.2 0.2 Baso # (Auto) 0.1 0.0 Abs Immat Gran (auto) 0.04 H 0.04 H Absolute Neuts (auto) 5.2 4.9 Absolute Nucleated RBC 0.000 0.000 Nucleated RBC % (auto) 0.0 0.0 Anion Gap 11 L 10 L Estim Creat Clear Calc 167.7 155.4 Estimated GFR > 60 > 60 Random Glucose 92 86 Lactic Acid 0.6 Calcium 9.3 8.6 D Total Bilirubin 0.3 0.2 Direct Bilirubin 0.1 AST 29 26 ALT 20 22 Alkaline Phosphatase 114 104 Total Protein 7.6 6.6 Albumin 4.5 3.9 Beta HCG, Quant < 2 <Andreina Dobbs PA-C - Last Filed: 06/10/25 08:55> Microbiology Microbiology Results: Microbiology 06/09/25 22:04 Gram Stain - Final Abdomen - Abscess Routine Culture - Preliminary No growth to date. <Andreina Dobbs PA-C - Last Filed: 06/10/25 08:55> Procedures Date of Service Date of Service: 06/10/25 <Andreina Dobbs PA-C - Last Filed: 06/10/25 08:55> 06/10/25 <Kayden Taylor MD - Last Filed: 06/10/25 10:50> Progress Note: A&P Assessment and plan (1) Abdominal wall abscess: Status: Acute <Andreina Dobbs PA-C - Last Filed: 06/10/25 08:55> Assessment and Plan: Cellulitis appears much improved Dressings have been changed earlier She looks well overall IV antibiotics Okay to discharge home tomorrow if she continues to do well with daily dressing changes, office follow up Check culture results Seen and examined independently <Kayden Taylor MD - Last Filed: 06/10/25 10:50> Assessment and Plan: Admitted for cellulitis and abscess of abdominal wall. Underwent I&D at bedside yesterday. Has improving cellulitic changes without purulent drainage. Cont IV abx for now. F/u cultures. No further surgical intervention currently necessary. Ok to shower, can apply dry fluffs and tape after. <Andreina Dobbs PA-C - Last Filed: 06/10/25 08:55> Time Spent With Patient Time: Total time managing care of this patient today ____ minutes. <Andreina Dobbs PA-C - Last Filed: 06/10/25 08:55> Quality Stroke Does the patient have a stroke diagnosis?: No <MARCELA Swann Last Filed: 06/10/25 08:55> VTE Prior VTE?: No <Andreina Dobbs PA-C - Last Filed: 06/10/25 08:55> VTE Risk Level:: Medical - moderate - high <MARCELA Swann Last Filed: 06/10/25 08:55> VTE Device Contraindication: Treatment Not Indicated <MARCELA Swann Last Filed: 06/10/25 08:55> VTE Drug Contraindication: N/A - Med Ordered <MARCELA Swann Last Filed: 06/10/25 08:55>
--- NOTE | 2025-06-10 10:29 | MHC.CM.PN ---
Pt. lives with her children, she does not use home health services or DME. PCP confirmed: Estuardo Mccarty. Pt.'s car is in lot for transport home at [place], DCP: home, self care. CM to follow for DC needs.
[2025-06-10 11:06] VITALS: BP 126/69; PULSE 81; RESP 18; TEMP 36.7; O2SAT 96
[2025-06-10] MEDS: Linezolid/D5W 600 MG/300 ML PIGGYBACK 300 MG IV (14:38)
[2025-06-10 16:00] VITALS: BP 119/74; PULSE 77; RESP 20; TEMP 37
--- NOTE | 2025-06-10 16:58 | W.PM.IDCN ---
History of Present Illness Data of Consult Service Date: 06/10/25 Requesting physician: Raymond Moore Primary Care Provider: Alyce Marte MD [facility] Reason for consult: abdominal wall cellulitis She presents with redness right lower abdomen around Csection area,3 years ago Csection. She has no fever or chills at this time. She has no bacteremia. Review of Systems Review of Systems: Yes all other systems are reviewed and are negative PMFSH Past Medical History Medical History Abdominal wall abscess Vaginal itching Fatty liver Kidney stones Morbid obesity Cervical cancer screening Scoliosis IBS (irritable bowel syndrome) Family History Family History Paternal Grandmother Hx of diabetes mellitus Family history: reviewed and not pertinent Surgical History Surgical History History of surgery on upper extremity Hx of section Social History Social History Household Members: Family Housing: Apartment Are you a primary landcare facilitator to a significant other at home: No Do you presently have visiting nurse or other home services: No Alcohol intake: never Patient Tobacco Use Status: Never used Tobacco Smoked in Last 30 Days: No Use of substances other than those prescribed or required for medical reasons: No Currently Displaying Signs/Symptoms of Drug Intoxication Withdrawal: No Have you been hit, kicked, punched, or otherwise hurt by someone within the past year? 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 Allergies Allergy/AdvReac Type Severity Reaction Status Date / Time No Known Allergies Allergy Verified 06/09/25 13:06 Active Medications: Current Medications Acetaminophen (Acetaminophen 325 Mg Tablet) 650 mg PO Q6H PRN PRN Reason: Pain, Mild 1-3,fever,headache Last Admin: 06/10/25 14:35 Dose: 650 mg Hydrocodone Bitart/Acetaminophen (Hydrocodone Bit/Acetam 5/325 Tablet) 1 tab PO Q6H PRN PRN Reason: severe pain (scale score 7-10) Calcium Carbonate (Calcium Carbonate 750 Mg Tab.Chew) 750 mg PO Q4H PRN PRN Reason: Heartburn Last Admin: 06/10/25 14:35 Dose: 750 mg Enoxaparin Sodium (Enoxaparin Sodium 40 Mg/0.4 Ml Syringe) 40 mg SUBCUT Q24H MAHI Last Admin: 06/09/25 22:05 Dose: 40 mg Linezolid (Zyvox/D5w) 600 mg in 300 mls @ 300 mls/hr IV Q12H MAHI Last Admin: 06/10/25 14:38 Dose: 300 mls/hr Ibuprofen (Ibuprofen 400 Mg Tablet) 400 mg PO Q6H PRN PRN Reason: Migraine Headache Melatonin (Melatonin 3 Mg Tablet) 6 mg PO BEDTIME PRN PRN Reason: Insomnia Multivitamins/Vitamin C (Multivitamin Tablet) 1 tab PO DAILY MAHI Sumatriptan Succinate (Sumatriptan Succinate 100 Mg Tablet) 100 mg PO DAILY MRX1 PRN PRN Reason: Migraine Headache Home Medications ?Medication ?Instructions ?Recorded ?Confirmed ?Last Taken ?Type acetaminophen 325 mg tablet 650 mg PO Q4H PRN Migraine Headache 06/09/25 06/09/25 Unknown History calcium 333 mg-vit D3 133 1 tab PO DAILY 06/09/25 06/09/25 06/09/25 History unit-magnesium 133 mg-zinc 5 mg tablet ibuprofen 200 mg tablet 400 mg PO Q6H PRN Migraine Headache 06/09/25 06/09/25 Unknown History multivitamin-ferrous 1 tab PO DAILY 06/09/25 06/09/25 06/09/25 History fumarate-folic acid 18 mg-400 mcg tablet (Women's Daily Multivitamin) sumatriptan succinate 100 mg tablet 100 mg PO DAILY MRX1 PRN Migraine 06/09/25 06/09/25 Unknown History Headache Physical Exam Vital Signs: Vital Signs: Last Vital Signs Temp 98.6 F 06/10/25 16:00 Pulse 77 06/10/25 16:00 Resp 20 06/10/25 16:00 BP 119/74 06/10/25 16:00 Pulse Ox 96 06/10/25 11:06 O2 Del Method Room Air 06/10/25 16:00 BMI result Body Mass Index 41.5 Const: General: cooperative HEENT: Head: Yes normal to inspection Face and sinus: Yes normal facial exam Mouth: Normal oral and palatal mucosa present Teeth and gingiva: dentition normal Eyes: General: appearance normal, both eyes and all related structures Pupils: Equal, round and reactive pupils present Resp: Effort & Inspection: normal respiratory effort Cardio: Rate: regular rate Rhythm: regular rhythm GI: Other: slight lower abdomen redness some erythema expanding Palpation (GI): Soft to palpation and nontender : General: Yes no CVA tenderness Back/Spine/Pelvis: Back: no CVA tenderness Skin: General skin exam: no rashes or lesions noted Neuro: General: moves all extremities Cranial nerves: Yes Equal, round and reactive pupils present Extrem: General: Yes normal to inspection Psych: Appearance: grossly normal Results Labs 06/10/25 06:35 06/10/25 06:35 Labs: Short CBC 06/10/25 Range/Units 06:35 WBC 8.2 (4.8-10.8) X10*3/uL Hgb 11.4 L (12.0-16.0) g/dl Hct 33.7 L (37.0-47.0) % Plt Count 246 (160-400) X10*3/uL BMP 06/10/25 06:35 Sodium 142 Potassium 3.9 Chloride 109 H Carbon Dioxide 27 BUN 11 Creatinine 0.65 Calcium 8.6 D Liver Function 06/10/25 Range/Units 06:35 Total Bilirubin 0.2 (0.0-1.0) mg/dL AST 26 (5-31) U/L ALT 22 (0-31) U/L Alkaline Phosphatase 104 (39-117) U/L Albumin 3.9 (3.5-5.0) g/dL Microbiology Microbiology Results: Microbiology 06/09/25 22:04 Abdomen - Abscess Gram Stain - Final 06/09/25 22:04 Abdomen - Abscess Routine Culture - Preliminary No growth to date. Assessment and Plan (1) Abdominal wall abscess: Status: Acute Plan Would give linezolid 600 mg bid until improved ,probably 14 d total,can go on po.
--- NOTE | 2025-06-10 17:19 | P.PNIM_ITS ---
Subjective Subjective Date of Service: 06/10/25 Interval History: Pain much better and well-controlled No fever or chills No nausea, vomiting Able to tolerate solid diet Review of Systems Review of Systems: Yes all other systems are reviewed and are negative Physical Exam 2 Exam: Exam: General: AOx3, no acute distress Resp: CTA bilaterally CVS: S1, S2, RRR GI: +BS, no distention, mild central tenderness. Erythema and induration surrounding I&D incision site in lower central pannus. No fluctuance noticed. Skin: Warm, dry Neuro: Cranial nerves II-XII grossly intact bilaterally. Motor grossly intact bilaterally Extremities: No edema Psych: Appropriate affect Vital Signs: Vital Signs: Last Vital Signs Temp 98.6 F 06/10/25 16:00 Pulse 77 06/10/25 16:00 Resp 20 06/10/25 16:00 BP 119/74 06/10/25 16:00 Pulse Ox 96 06/10/25 11:06 O2 Del Method Room Air 06/10/25 16:00 BMI result Body Mass Index 41.5 Objective Data Active Medications Acetaminophen (Acetaminophen 325 Mg Tablet) 650 mg PO Q6H PRN PRN Reason: Pain, Mild 1-3,fever,headache Last Admin: 06/10/25 14:35 Dose: 650 mg Documented By: TAMEKA Hydrocodone Bitart/Acetaminophen (Hydrocodone Bit/Acetam 5/325 Tablet) 1 tab PO Q6H PRN PRN Reason: severe pain (scale score 7-10) Calcium Carbonate (Calcium Carbonate 750 Mg Tab.Chew) 750 mg PO Q4H PRN PRN Reason: Heartburn Last Admin: 06/10/25 14:35 Dose: 750 mg Documented By: TAMEKA Enoxaparin Sodium (Enoxaparin Sodium 40 Mg/0.4 Ml Syringe) 40 mg SUBCUT Q24H [facility] Last Admin: 06/09/25 22:05 Dose: 40 mg Documented By: JEFF Linezolid (Zyvox/D5w) 600 mg in 300 mls @ 300 mls/hr IV Q12H [facility] Last Admin: 06/10/25 14:38 Dose: 300 mls/hr Documented By: TAMEKA Ibuprofen (Ibuprofen 400 Mg Tablet) 400 mg PO Q6H PRN PRN Reason: Migraine Headache Melatonin (Melatonin 3 Mg Tablet) 6 mg PO BEDTIME PRN PRN Reason: Insomnia Multivitamins/Vitamin C (Multivitamin Tablet) 1 tab PO DAILY MAHI Sumatriptan Succinate (Sumatriptan Succinate 100 Mg Tablet) 100 mg PO DAILY MRX1 PRN PRN Reason: Migraine Headache Labs 06/10/25 06:35 06/10/25 06:35 Labs: Laboratory Results - last 24 hr 06/09/25 06/10/25 13:28 06:35 MCV 89.2 MCH 30.2 MCHC 33.8 RDW 11.9 Plt Count 246 MPV 10.2 Immature Gran % (Auto) 0.5 H Neut % (Auto) 59.4 Lymph % (Auto) 28.4 [place] % (Auto) 8.9 Eos % (Auto) 2.3 Baso % (Auto) 0.5 Lymph # (Auto) 2.3 [place] # (Auto) 0.7 Eos # (Auto) 0.2 Baso # (Auto) 0.0 Abs Immat Gran (auto) 0.04 H Absolute Neuts (auto) 4.9 Absolute Nucleated RBC 0.000 Nucleated RBC % (auto) 0.0 Anion Gap 10 L Estim Creat Clear Calc 155.4 Estimated GFR > 60 Random Glucose 86 Calcium 8.6 D Total Bilirubin 0.2 AST 26 ALT 22 Alkaline Phosphatase 104 Total Protein 6.6 Albumin 3.9 Beta HCG, Quant < 2 Microbiology Microbiology Results: Microbiology 06/09/25 22:04 Gram Stain - Final Abdomen - Abscess Routine Culture - Preliminary No growth to date. Assessment and Plan (1) Abdominal wall abscess: Status: Acute Plan 34-year-old female with a past medical history of obesity, abdominal wall hernia, recurrent UTIs; presented to the hospital today with a chief complaint of abnormal redness. Noted abdominal wall cellulitis/abscess that failed outpatient therapy. Abdominal wall cellulitis/abscess: Status post I and D by General surgery team. General surgery mentioned no concern for necrotizing fasciitis-recommended IV antibiotics for now Received vancomycin, ceftriaxone, and clindamycin in the ED Will transitioned to linezolid 600 mg b.i.d. times 14 days per ID recommendations ID consulted General surgery consulted: No further surgical intervention necessary at this time; okay to shower; apply dry fluffs and tape after Follow-up cultures DVT prophylaxis: Lovenox Code status: Full code Pt needs continued hospitalization for treatment of abdominal wall cellulitis with abscess that failed outpatient therapy. We will continue treat with IV antibiotics and monitor for now. Pt likely can go home on p.o. meds tomorrow if she feels well. Quality Stroke Does the patient have a stroke diagnosis?: No VTE Prior VTE?: No VTE Risk Level:: Medical - moderate - high VTE Device Contraindication: Treatment Not Indicated VTE Drug Contraindication: N/A - Med Ordered
[2025-06-10 19:59] VITALS: BP 121/72; PULSE 82; RESP 18; TEMP 36.6; O2SAT 98
[2025-06-10 23:00] VITALS: BP 127/80; PULSE 69; RESP 18; TEMP 36.8; O2SAT 94
[2025-06-11] VITALS (7 sets, daily range): BP systolic 105–127; BP diastolic 63–85; PULSE 69–85; RESP 14–18; TEMP 36.3–37.2; O2SAT 94–97
[2025-06-11] MEDS: Linezolid/D5W 600 MG/300 ML PIGGYBACK 300 MG IV ×2 (04:02→15:17)
[2025-06-11] MEDS: Butalb/Acetamin/Caff 50/325/40 TABLET 1 TAB PO (13:23)
--- NOTE | 2025-06-11 15:47 | HO.PM.IMPN ---
Subjective Subjective Date of Service: 06/11/25 Interval History: Has been experiencing headache not well-controlled with topiramate Also complains of heartburn Abdominal pain improved No nausea, vomiting, diarrhea Has been tolerating solid diet Review of Systems Review of Systems: Yes all other systems are reviewed and are negative Physical Exam Exam: Exam: General: AOx3, no acute distress Resp: CTA bilaterally CVS: S1, S2, RRR GI: +BS, no distention, mild central tenderness. Erythema and induration surrounding I&D incision site greatly improved. No fluctuance noted Skin: Warm, dry Neuro: Cranial nerves II-XII grossly intact bilaterally. Motor grossly intact bilaterally Extremities: No edema Psych: Appropriate affect Vital Signs: Vital Signs: Last Vital Signs Temp 97.3 F 06/11/25 15:33 Pulse 78 06/11/25 15:33 Resp 14 06/11/25 15:33 BP 105/69 06/11/25 15:33 Pulse Ox 97 06/11/25 15:33 O2 Del Method Room Air 06/11/25 15:33 BMI result Body Mass Index 41.5 Objective Data Active Medications Acetaminophen (Acetaminophen 325 Mg Tablet) 650 mg PO Q6H PRN PRN Reason: Pain, Mild 1-3,fever,headache Last Admin: 06/11/25 08:10 Dose: 650 mg Documented By: TAMEKA Acetaminophen/Butalbital/Caffeine (Butalb/Acetamin/Caff 50/325/40 Tablet) 1 tab PO Q4H PRN PRN Reason: Migraine Headache Last Admin: 06/11/25 13:23 Dose: 1 tab Documented By: SHANNON Hydrocodone Bitart/Acetaminophen (Hydrocodone Bit/Acetam 5/325 Tablet) 1 tab PO Q6H PRN PRN Reason: severe pain (scale score 7-10) Calcium Carbonate (Calcium Carbonate 750 Mg Tab.Chew) 750 mg PO Q4H PRN PRN Reason: Heartburn Last Admin: 06/10/25 20:56 Dose: 750 mg Documented By: FANNY Enoxaparin Sodium (Enoxaparin Sodium 40 Mg/0.4 Ml Syringe) 40 mg SUBCUT Q24H MAHI Last Admin: 06/10/25 22:51 Dose: 40 mg Documented By: FANNY Linezolid (Zyvox/D5w) 600 mg in 300 mls @ 300 mls/hr IV Q12H [facility] Last Admin: 06/11/25 15:17 Dose: 300 mls/hr Documented By: DEYVI Ibuprofen (Ibuprofen 400 Mg Tablet) 400 mg PO Q6H PRN PRN Reason: Migraine Headache Last Admin: 06/11/25 11:15 Dose: 400 mg Documented By: TAMEKA Melatonin (Melatonin 3 Mg Tablet) 6 mg PO BEDTIME PRN PRN Reason: Insomnia Multivitamins/Vitamin C (Multivitamin Tablet) 1 tab PO DAILY [facility] Last Admin: 06/11/25 08:11 Dose: 1 tab Documented By: TAMEKA Omeprazole (Omeprazole 40 Mg Capsule.Dr) 40 mg PO DAILY@0630 [facility] Last Admin: 06/11/25 08:16 Dose: 40 mg Documented By: TAMEKA Sumatriptan Succinate (Sumatriptan Succinate 100 Mg Tablet) 100 mg PO DAILY MRX1 PRN PRN Reason: Migraine Headache Last Admin: 06/10/25 20:56 Dose: 100 mg Documented By: MUNIRAK Labs 06/10/25 06:35 06/10/25 06:35 Microbiology Microbiology Results: Microbiology 06/09/25 22:04 Gram Stain - Final Abdomen - Abscess Routine Culture - Preliminary No growth to date. 06/09/25 17:00 Blood Culture - Preliminary Blood - Venous No growth after 24 hours. 06/09/25 16:56 Blood Culture - Preliminary Blood - Venous No growth after 24 hours. Assessment and Plan (1) Abdominal wall abscess: Status: Acute Plan 34-year-old female with a past medical history of obesity, abdominal wall hernia, recurrent UTIs; presented to the hospital today with a chief complaint of abnormal redness. Noted abdominal wall cellulitis/abscess that failed outpatient therapy. Abdominal wall cellulitis/abscess: Status post I and D by General surgery team. General surgery mentioned no concern for necrotizing fasciitis-recommended IV antibiotics for now Received vancomycin, ceftriaxone, and clindamycin in the ED Transitioned to linezolid 600 mg b.i.d. times 14 days per ID recommendations, end date 06/23 General surgery consulted: No further surgical intervention necessary at this time; okay to shower; apply dry fluffs and tape after Follow-up cultures Migraine Topiramate, Fioricet p.r.n. Compazine if refractory to above care DVT prophylaxis: Lovenox Code status: Full code Pt needs continued hospitalization for treatment of abdominal wall cellulitis with abscess that failed outpatient therapy. We will continue treat with IV antibiotics and monitor for now. Pt likely can go home on p.o. meds tomorrow if she feels well. Quality Stroke Does the patient have a stroke diagnosis?: No VTE Prior VTE?: No VTE Risk Level:: Medical - moderate - high VTE Device Contraindication: Treatment Not Indicated VTE Drug Contraindication: N/A - Med Ordered
[2025-06-12] MEDS: Linezolid/D5W 600 MG/300 ML PIGGYBACK 300 MG IV (02:11)
[2025-06-12 03:11] VITALS: BP 100/59; PULSE 72; RESP 18; TEMP 36.8; O2SAT 96
[2025-06-12 07:55] VITALS: BP 117/65; PULSE 68; RESP 18; TEMP 36.7; O2SAT 96
[2025-06-12 11:37] VITALS: BP 94/54; PULSE 75; RESP 16; TEMP 36.2; O2SAT 98
--- NOTE | 2025-06-12 12:47 | P.DS_ITS ---
DS: Providers Provider Date of Service: 06/12/25 Date of admission: 06/09/25 21:18 Date of discharge: 06/12/25 Primary care physician: Alyce Marte MD Consults: 06/09/25 21:18 Consult to General Surgery [place]ine [place] [facility] [place] [facility] Reason for consultation: abd wall cellulitis/abscess Consult to Infectious Diseases Routine Consulting Provider[place] [facility] [place] [facility] Reason for consultation: abd wall celulitis DS: Diagnosis Discharge Diagnosis (1) Abdominal wall abscess: Status: Acute DS: Summary Hospital Course Hospital Course: From admission HPI Date of Service: 06/09/25 Chief Complaint: abd wall redness 34-year-old female with a past medical history of obesity, abdominal wall hernia, recurrent UTIs; presented to the hospital today with a chief complaint of abnormal redness. Patient initially presented to the hospital 2 days ago to the ER with abdominal wall redness and noted to have cellulitis and was discharged home on the Keflex. Patient presented back again because of the increased redness. Denies any fevers. Denies any abdominal pain. Denies any nausea vomiting. Denies any chest pain or palpitations. Denies any GI symptoms. Review of all other systems is negative except mentioned above ER course: Per ER physician, patient not have abdominal tenderness and possible abscess. CT abdomen pelvis was done which showed abdominal wall abscess and also findings concerning for necrotizing fasciitis. Patient has stable vitals and does not appear toxic looking. Patient was evaluated by General surgery in the ER and did I and D for the abscess. And General surgery mentioned patient does not have any concerns for necrotizing fasciitis. Recommended admission to the medicine service for IV antibiotics and general surgery will follow along. Hospital course Pt was admitted to the hospital for abdominal wall cellulitis with abscess failed outpatient therapy. Pt had previously presented to the emergency room 2 days prior and started on oral antibiotics for abdominal cellulitis. Pt was seen and evaluated by General surgery who performed bedside I and D to good effect; did not think there was any evidence of necrotizing fasciitis. Pt initially started on vancomycin and ceftriaxone which was switched to linezolid 600 mg twice a day by infectious disease. Patient's hospital course was u ncomplicated and cellulitis greatly improved after I&D and antibiotics. Pt will be sent home on linezolid 600 mg p.o. twice a day times 10 days. Will also receive omeprazole 40 mg daily times 14 days for GI protection. Pt also will be sent home on Compazine 5 mg t.i.d. p.r.n. for refractory migraine headaches. Pt should hold taking her topiramate for the next 10 days while on linezolid. Pt should follow up with General surgery and 1-2 weeks for post hospitalization and I&D follow up. For wound care, apply dry dressing to I&D site while it remains open and draining. Pt is Ok to shower, but no tub bath/swimming. Time Attestation Discharge Coordination Time (in mins): 38 Quality: Safe Use of Opioids Does Pt have an Active Cancer Diagnosis on the Problem List?: No Quality: Stroke Does the patient have a stroke diagnosis?: No Physical Exam Exam: Exam: General: AOx3, no acute distress Resp: CTA bilaterally CVS: S1, S2, RRR GI: +BS, no distention, mild central tenderness. Erythema and induration surrounding I&D incision site greatly improved. No fluctuance noted. No significant drainage from incision site Skin: Warm, dry Neuro: Cranial nerves II-XII grossly intact bilaterally. Motor grossly intact bilaterally Extremities: No edema Psych: Appropriate affect Vital Signs: Vital Signs: Last Vital Signs Temp 97.2 F 06/12/25 11:37 Pulse 75 06/12/25 11:37 Resp 16 06/12/25 11:37 BP 94/54 L 06/12/25 11:37 Pulse Ox 98 06/12/25 11:37 O2 Del Method Room Air 06/12/25 11:37 BMI result Body Mass Index 41.5 DS: Data Data Completed and Pending Labs on day of discharge: Preliminary micro results at discharge 06/09/25 17:00 Blood Culture - Preliminary Blood - Venous No growth after 48 hours. 06/09/25 16:56 Blood Culture - Preliminary Blood - Venous No growth after 48 hours. Discharge Plan Discharge Anticipated Discharge Date/Time: 06/12/25 12:31 Patient Disposition: Home, Self-Care Discharge Diagnosis: Abdominal wall cellulitis with abscess [place] [facility] [place] [facility] [place]Provider Group, General Surgery] - 1 Week Referral Note: Abdominal wall cellultis with abscess Alyce Marte MD [Primary Care Provider, Internal Medicine] - 1 Week Kayden Taylor MD [Physician, General Surgery] - 1 Week Discharge Medications: New prochlorperazine maleate [Compazine] 5 mg tablet 5 mg PO TID PRN (Reason: migraine headache) Qty: 30 0RF Rx Instructions: Take one tablet up to three times a day as needed for migraine headache linezolid 600 mg tablet 600 mg PO Q12H Qty: 21 0RF Rx Instructions: Take 1 tablet daily with meals for the next 10 days/, starting the evening of 06/12 and ending the evening of 06/22. omeprazole 40 mg capsule,delayed release(DR/EC) 40 mg PO DAILY Qty: 14 0RF Rx Instructions: Take one tablet daily for the next 14 days for GI protection while taking antibiotics Continued hydrocodone-acetaminophen 5-325 mg tablet 1 tab PO Q6H PRN (Reason: severe pain (scale score 7-10)) Qty: 10 0RF Rx Instructions: Partial Fill upon patient request. acetaminophen 325 mg Tablet 650 mg PO Q4H PRN (Reason: Migraine Headache) ibuprofen 200 mg Tablet 400 mg PO Q6H PRN (Reason: Migraine Headache) Women's Daily Multivitamin 18-400 mg-mcg Tablet 1 tab PO DAILY calcium carb-D3-mag ox-zinc ox 333 mg-133 unit -133 mg-5 mg Tablet 1 tab PO DAILY Held sumatriptan succinate 100 mg tablet 100 mg PO DAILY MRX1 PRN (Reason: Migraine Headache) Hold Instructions: Resume on 06/23/25. Hold while taking linezolid Rx Instructions: TAKE ONE TABLET VEE FOR MIGRAINE. MAY REPEAT IN 2 HOURS NEEDED. Discontinued cephalexin 500 mg capsule 500 mg PO QID 7 Days Qty: 28 0RF Discharge Orders: Discharge Order (Routine); Ordered 06/12/25 Ordered By: Raymond Moore Activity on Discharge: As tolerated Stand Alone Forms: Patient Portal Discharge page, Work/School Release Print Language: Latvian Activity Restrictions/Additional Instructions: Dry dressing to I&D site while it remains open and draining. Ok to shower, no tub bath/swimming. Care Plan Goals: See below Health Concerns: Abdominal wall cellulitis with abscess Nausea, vomiting, diarrhea Abdominal pain Migraine headache Plan of Treatment: You were admitted to the hospital for abdominal wall cellulitis with abscess that failed outpatient therapy. You were seen and evaluated by General surgery who performed bedside I and D to good effect. You were started on IV antibiotics that were seen and evaluated by Infectious Disease who recommended treating with linezolid for a total course of 14 days of antibiotics. Hospital stay was uncomplicated and cellulitis improved significantly on IV antibiotics. Abscess with only scant drainage from incision site. You will be discharged home on oral antibiotics HC General surgery for follow up. -- take linezolid 600 mg twice a day with food for the next 10 days, starting the evening of 06/12 and ending the evening of 06/22 -- consider ED lots of yogurt and [id number] probiotics while on antibiotics -- take omeprazole 40 mg daily for the next 14 days while on antibiotics for GI protection -- for refractory migraine headaches, take Compazine 5 mg up to 3 times daily as necessary -- hold on taking topiramate for the next 10 days while on linezolid antibiotics -- see above for wound and dressing care instructions -- [place] up [place] [facility] [place] 1-2 weeks Assessment: See above Patient Instructions: Cellulitis (GEN)
--- NOTE | 2025-06-12 13:15 | MHC.CM.PN ---
PT TO DC HOME TODAY WITH NO SERVICES VIA SELF TRANSPORT
== END 2025-06-12 13:18 | disposition home or self-care (01) | DRG 364 ==
LOC: HO.ED 21:22 → HO.EDOVER 21:27 → HO.IMC 23:27 → HO.S3 06-12 06:14
PROVIDERS: Physician Assistant Medical; Admitting Provider Hospitalist; Emergency Provider Student in an Organized Health Care Education/Training Program; PCP Internal Medicine; Visit Provider Student in an Organized Health Care Education/Training Program
DX: L02.211 Cutaneous abscess of abdominal wall (principal); E66.9 Obesity, unspecified; L03.311 Cellulitis of abdominal wall; Z68.41 Body mass index [BMI] 40.0-44.9, adult; Z79.899 Other long term (current) drug therapy
CPT/HCPCS: 36415; 74177; 80048; 80053; 80076; 83605; 84702; 85025; 87040; 87070; 87205; 99285; J0696; J0736; J0737; J1200; J1650; J2003; J2020; J2270; J2405; J3373; J3374; J7120; Q9967

== ENCOUNTER → 2025-06-09 16:48 | Outpatient (BNV) | payer MEDICAID, SELFPAY | PROVIDERS: Emergency Provider Student in an Organized Health Care Education/Training Program; PCP Internal Medicine; Visit Provider Radiology Diagnostic Radiology | DX: L03.313 Cellulitis of chest wall (principal); R16.0 Hepatomegaly, not elsewhere classified | CPT/HCPCS: 74177 ==

== ENCOUNTER → 2025-06-09 21:18 | Outpatient (BNV) | payer MEDICAID, SELFPAY | PROVIDERS: Admitting Provider Hospitalist; Emergency Provider Student in an Organized Health Care Education/Training Program; PCP Internal Medicine; Visit Provider Student in an Organized Health Care Education/Training Program | DX: L02.211 Cutaneous abscess of abdominal wall (principal) | CPT/HCPCS: 99223; 99233; 99239 ==

== ENCOUNTER → 2025-06-09 21:18 | Outpatient (BNV) | payer MEDICAID, SELFPAY | PROVIDERS: Admitting Provider Hospitalist; Emergency Provider Student in an Organized Health Care Education/Training Program; PCP Internal Medicine; Visit Provider Physician Assistant Surgical | DX: L02.211 Cutaneous abscess of abdominal wall (principal) | CPT/HCPCS: 10060; 99024; 99222 ==

== ENCOUNTER → 2025-06-09 21:18 | Outpatient (BNV) | payer MEDICAID, SELFPAY | PROVIDERS: Admitting Provider Hospitalist; Emergency Provider Student in an Organized Health Care Education/Training Program; PCP Internal Medicine; Visit Provider Internal Medicine | DX: L02.211 Cutaneous abscess of abdominal wall (principal) | CPT/HCPCS: 99222 ==

== ENCOUNTER 2025-06-15 12:21 | Outpatient (AMB) | payer MEDICAID, SELFPAY ==
--- NOTE | 2025-06-15 12:23 | MHC.OFFVIS ---
Vital Signs 06/15/25 12:31 Height 5 ft 6 in Weight 272 lb BMI 43.9 BP 133/85 Blood Pressure Location Rt brachial Position Sitting Pulse 87 Intake Visit Reasons: Abdominal wall abscess Intake Note: Patient seen at [facility] ED for abdominal wall abscess on 06-12-2025. Patient c/o: keeping area covered w/bandaid. States not sure if improvement w/ linezolid course. Rn Clinical Research Required: No Accompanied by: Self / Same As Patient Allergies No Known Allergies Allergy (Verified 06/15/25 12:28) HPI HPI Abdominal wall abscess: Details: 34-year-old female following up following admission for abdominal wall abscess s/p I&D last week. Was discharged on linezolid, states she is still taking this as prescribed. Overall states she is doing well. Is experiencing some mild pain at the incision and drainage site. She reports there is some small amounts of discharge on the dressings when she removes them. She has been changing the dressings every day, keeping the area clean, washing with water. She denies any fevers or chills. She does not know how it looks, because she does not like to look at it because it is ?gross . [facility] Medical History Abdominal wall abscess Vaginal itching Fatty liver Kidney stones Morbid obesity Cervical cancer screening Scoliosis IBS (irritable bowel syndrome) Surgical History History of surgery on upper extremity Hx of section Family History Paternal Grandmother Hx of diabetes mellitus Social History Household Members: Family Both parents involved: Yes Housing: Apartment Are you a primary laboratory animal caretaker to a significant other at home: No Do you presently have visiting nurse or other home services: No 75 years or older and lives alone: No Alcohol intake: never Patient Tobacco Use Status: Never used Tobacco Special pito needs: No Agree to transfusion: Yes Current occupational status: employed 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 Scant serosanguineous drainage on dressing. No purulent drainage. There was a small 0.3 cm open wound, attempted due probed with a Q-tip but was unable to do so. Very mild induration surrounding the incision drainage site. No erythema. Tender to palpation Neuro General: patient oriented x3 Assessment & Plan Assessment & Plan (1) Abdominal wall abscess: Code(s): L02.211 - Cutaneous abscess of abdominal wall Category: Medical Plan 34-year-old female following up following admission for abdominal wall abscess s/p I&D last week. She was discharge with a prescription for linezolid for continued antibiotic coverage after discharge. Has been taking this as prescribed. Overall states she is doing better, pain improving. There has been some scant drainage from the incision and drainage sites it appears serosanguineous on the dressings. She has been continuing with daily dressing changes and cleaning the wound daily with water. On exam the wound appears to be healing, there remains a 1 small opening that I was unable to probed with a Q-tip. I attempted to express any further fluid collections but there was none present. The cellulitic changes surrounding the wound seemed to be resolving, there was some mild induration, no longer any erythema. At this point I do not believe that this needs any further incision and drainage can likely resolve with continuing antibiotics and daily wound care. I instructed her to keep this covered while this remains draining. After his no longer draining she can leave this open to air. She should continue the entire course of antibiotics. I will have her follow up in 2 weeks for wound check. Instructed her to call or return to the emergency department sooner if the area becomes more inflamed, painful, red, or starts draining purulent fluid. She is agreeable to this plan Coding Level of Care Code New Pt Level 4 (58593) Diagnoses Abdominal wall abscess L02.211
[2025-06-15 12:31] VITALS: BP 133/85; PULSE 87; BMI 43.9
== END 2025-06-15 12:39 | disposition home or self-care (01) ==
LOC: HO.HGS 12:22
PROVIDERS: PCP Internal Medicine
DX: L02.211 Cutaneous abscess of abdominal wall (principal)
CPT/HCPCS: 99024; 99499

== ENCOUNTER → 2025-06-15 12:21 | Outpatient (BNVA) | payer MEDICAID, SELFPAY | PROVIDERS: PCP Internal Medicine | DX: L02.211 Cutaneous abscess of abdominal wall (principal) | CPT/HCPCS: 99212 ==

== ENCOUNTER 2025-07-11 14:24 | Outpatient (AMB) | payer MEDICAID, SELFPAY ==
--- NOTE | 2025-07-11 14:27 | MHC.OFFVIS ---
Vital Signs 07/11/25 14:32 Height 5 ft 6 in Weight 275 lb BMI 44.4 BP 131/86 Blood Pressure Location Rt brachial Position Sitting Pulse 85 Intake Visit Reasons: 2 week follow-up abscess Intake Note: Patient here for 2wk follow up abdominal abscess. Patient c/o: no concerns states i haven't even looked at it. ARTUR (WHITLEY): 06-15-2025 Tobacco Flavorer Required: No Accompanied by: Self / Same As Patient Allergies No Known Allergies Allergy (Verified 07/11/25 14:31) HPI HPI 2 week follow-up abscess: Details: Doing well, no complaints. Has no insight into her wound because she does not look at it. Has been trying to keep it clean and dry. Denies any drainage that she knows of, denies fevers at home. [facility] Medical History Abdominal wall abscess Vaginal itching Fatty liver Kidney stones Morbid obesity Cervical cancer screening Scoliosis IBS (irritable bowel syndrome) Surgical History History of surgery on upper extremity Hx of section Family History Paternal Grandmother Hx of diabetes mellitus Social History Household Members: Family Both parents involved: Yes Housing: Apartment Are you a primary child care worker to a significant other at home: No Do you presently have visiting nurse or other home services: No 75 years or older and lives alone: No Alcohol intake: never Patient Tobacco Use Status: Never used Tobacco Special pito needs: No Agree to transfusion: Yes Current occupational status: employed 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 Inspection: No distended and Yes obesity Palpation (GI): Soft to palpation and Tenderness to palpation present (GI) Neuro General: patient oriented x3 Assessment & Plan Assessment & Plan (1) Abdominal wall abscess: Code(s): L02.211 - Cutaneous abscess of abdominal wall Category: Medical Plan 34-year-old female following up for wound check following abdominal wall abscess s/p I&D. States things have been going well, no concerns with the wound. She denies bleeding, pus, pain. Has been trying to keep this clean and dry as best possible. On exam the wound appears to be healed at this point. The cellulitic changes surrounding the wound seemed to be resolved. I reinforced the importance of keeping this area clean and dry as best as possible given this is wound happened in a skin fold in can be difficult to maintain proper hygiene. No longer requiring follow-up, can follow-up with any concerns in the future. Coding Level of Care Code Est Pt Level 3 (84631) Diagnoses Abdominal wall abscess L02.211
[2025-07-11 14:32] VITALS: BP 131/86; PULSE 85; BMI 44.4
== END 2025-07-11 14:34 | disposition home or self-care (01) ==
LOC: HO.HGS 14:25
PROVIDERS: PCP Internal Medicine
DX: L02.211 Cutaneous abscess of abdominal wall (principal)
CPT/HCPCS: 99213

== ENCOUNTER → 2025-07-11 14:24 | Outpatient (BNVA) | payer MEDICAID, SELFPAY | PROVIDERS: PCP Internal Medicine | DX: L02.211 Cutaneous abscess of abdominal wall (principal); Z98.890 Other specified postprocedural states | CPT/HCPCS: 99212 ==